=== PATIENT | female | born 1950 | race Caucasian/White ===

== ENCOUNTER 2023-03-17 08:31 | Outpatient (OUT) | payer MEDICARE, SELFPAY ==
[2023-03-17 09:19] LABS: Alanine Aminotransferase 28 U/L (14-59); Albumin Globulin Ratio 1.1; Albumin Level 3.6 g/dL (3.4-5.0); Alkaline Phosphatase 86 U/L (46-116); Anion Gap 13.1; Aspartate Amino Transferase 14 U/L (15-37); BUN Creatinine Ratio 18.7; Bilirubin Total 0.7 mg/dL (0.2-1.0); Calcium 9.1 mg/dL (8.5-10.1); Chloride 105 mmol/L (98-107); Cholesterol 204 mg/dL (<=200); Estimated GFR (African America >60 (>=60); Estimated GFR (Non-African Ame >60 (>=60); Globulin 3.3 g/dL; Glucose 110 mg/dL (74-106); HDL Cholesterol 41 mg/dL (40-60); Potassium 4.1 mmol/L (3.5-5.1); Sodium 142 mmol/L (136-145); Total Protein 6.9 g/dL (6.4-8.2); Triglycerides 179 mg/dL (<=150); VLDL CHOLESTEROL 35.8 mg/dL
== END 2023-03-17 08:32 | disposition home or self-care (01) ==
LOC: LAB 08:35
PROVIDERS: PCP Family Medicine; Visit Provider Family Medicine
DX: E78.2 Mixed hyperlipidemia (principal); N18.2 Chronic kidney disease, stage 2 (mild); Z13.1 Encounter for screening for diabetes mellitus
CPT/HCPCS: 36415; 80053; 80061

== ENCOUNTER 2024-01-05 10:13 | Outpatient (OUT) | payer MEDICARE, SELFPAY ==
--- NOTE | 2024-01-05 10:30 | XR_ITS ---
[address] [address] Patient Name: THEO QUEEN MRN: [id number] date: 1950 Sex: F Assigned Patient Location: [facility] Current Patient Location: [facility] Accession/Order Number: [id number] Exam Date: 01/05/2024 10:20 Report Date: 01/05/2024 12:21 At the request of: SHAKIRA ORONA Procedure: XR DEXA axial skeleton EXAMINATION: XR DEXA axial skeleton HISTORY: Osteopenia Lumbar Spine COMPARISON: DEXA bone densitometry 02/02/2009 TECHNIQUE: Dual-energy X-ray absorptiometry (DXA) was performed. FINDINGS: HIP ANALYSIS: Lowest bone mineral density is within the right femoral neck, 0.73 g/cm2. T-score (standard deviation relative to young adult mean): -1.8 . -6.7% change since prior study. XR/XR DEXA axial skeleton IMPRESSION: [employer] Classification: Osteopenia - Moderate Fracture Risk FRAX: Electronically authenticated by: EMILIE ROMERO Date: 01/05/2024 12:21
== END 2024-01-05 10:14 | disposition home or self-care (01) ==
LOC: RAD 10:13
PROVIDERS: PCP Family Medicine; Visit Provider Family Medicine
DX: M85.88 Other specified disorders of bone density and structure, other site (principal); M85.851 Other specified disorders of bone density and structure, right thigh; M85.852 Other specified disorders of bone density and structure, left thigh; N95.1 Menopausal and female climacteric states
CPT/HCPCS: 77080

== ENCOUNTER 2024-02-19 07:40 | Outpatient (OUT) | payer MEDICARE, SELFPAY ==
--- NOTE | 2024-02-19 07:43 | MR_ITS ---
[address] [address] Patient Name: THEO QUEEN MRN: [id number] date: 1950 Sex: F Assigned Patient Location: MRI Current Patient Location: Accession/Order Number: [id number] Exam Date: 02/19/2024 08:20 Report Date: 02/20/2024 04:34 At the request of: JERMAINE NUR Procedure: MR shoulder RT wo con EXAMINATION: MR shoulder RT wo con HISTORY: Right Shoulder Pain M25.511 ; right shoulder pain since injury one month ago COMPARISON: No relevant comparison available. TECHNIQUE: A variety of imaging planes and parameters were utilized for visualization of suspected pathology. Imaging was performed without or with contrast as indicated by examination type. FINDINGS: ROTATOR CUFF REGION CUFF TENDONS: Disruption of supraspinatus tendon at its humeral head insertion with approximately 1.5 cm proximal retraction. CUFF MUSCLES: Normal appearing muscles. DELTOID: No significant atrophy or tear. LONG BICEPS TENDON: No abnormal signal, attrition, or tear. LABRUM/BICEPS ANCHOR SUPERIOR: No visible labral tear or biceps anchor pathology. ANTERIOR/INFERIOR: No visible tear or attrition. POSTERIOR: No posterior labrum abnormality. CAPSULE No visible capsular laxity or thickening. 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 AC LIGAMENTS: Normal acromioclavicular ligament. CC LIGAMENTS: Normal coracoclavicular ligaments. ACROMION: Mild lateral downward sloping. SUBACROMIAL BURSA: Small amount of fluid. HYALINE CARTILAGE: Thinning of cartilage. No focal defect. OTHER BONES: Normal proximal humerus, glenoid, and coracoid. OTHER OBSERVATIONS: Negative. No other significant findings or glenohumeral effusion. MR/MR shoulder RT wo con IMPRESSION: 1. Disruption and proximal retraction of supraspinatus tendon. 2. Marked degenerative changes of acromioclavicular joints and mild lateral downward sloping of acromion process. Electronically authenticated by: EMILIE ROMERO Date: 02/20/2024 04:34
--- OUTSIDE RECORDS SUMMARY | 2024-02-19 07:43 | XMS_ITS | CCD ---
Author Organization [facility] Care Team Providers Care Automobile Mechanic Motor Name Role Phone PHYSICIAN, DEFAULT Admitting Unavailable PHYSICIAN, DEFAULT Attending Unavailable YEYO, DR ROSENBERG Attending Unavailable YEYO, DR ROSENBERG Consulting Unavailable YEYO, DR ROSENBERG Admitting Unavailable MD Shakira Orona Primary Care Provider MD Shakira Orona Referring Provider [phone] Self, Referral Attending Provider Unavailable Silvia Morris Unavailable SHAKIRA ORONA Attending Unavailable SHAKIRA ORONA Attending Unavailable SHAKIRA ORONA Attending Unavailable SHAKIRA ORONA Referring Unavailable HUSSEIN SCHUSTER Attending Unavailable SHAKIRA ORONA Referring Unavailable PAIGE VERA Attending Unavailable SHAKIRA ORONA Referring Unavailable SHAKIRA ORONA Referring Unavailable ANTONELLA CHADWICK Attending Unavailable ANTONELLA CHADWICK Attending Unavailable SHAKIRA ORONA Referring Unavailable CHELSY MAYNARD Attending Unavailable SHAKIRA ORONA Referring Unavailable Gwen Torres Attending Unavailable Gwen Torres Attending Unavailable Gwen Torres Attending Unavailable Allergies Allergy Classification Reported Allergen(s) Allergy Type Date of Onset Reaction(s) Facility (1 source) Penicillins (Antibiotic) Propensity to adverse reactions Unknown [facility] Other (1 source) FAVIOR Propensity to adverse reactions Unknown [facility] Other Medications Current Medications Medication Drug Class(es) Dates Sig (Normalized) Sig (Original) azithromycin 250 mg oral tablet (1 source) Macrolide Antimicrobial Start: 05-15-2023 Azithromycin 250 MG 2 tablet on the first day, then 1 tablet daily for 4 days Orally Once a day for 5 days Apr, Active levothyroxine sodium 0.1 mg oral tablet (1 source) l-Thyroxine take 1 tablet by mouth once daily in the morning Levothyroxine Sodium 100 MCG 1 tablet on an empty stomach in the morning Orally Once a day for 30 day(s) Active methylPREDNISolone 4 mg oral tablet (1 source) Corticosteroid Start: 05-15-2023 Medrol 4 MG as directed Orally As Directed for 6 days Apr, Active Vitamin D3 (1 source) Vitamin D3 Activ e Completed/Discontinued Medications Medication Drug Class(es) Dates Sig (Normalized) Sig (Original) dexlansoprazole 30 mg delayed release oral capsule (1 source) Proton Pump Inhibitor Start: 10-27-2013 take 1 capsule by mouth every twenty-four hours Dexilant 30 MG 1 capsule Orally Once a day for 30 day(s) Oct, Not-Taking dicyclomine hydrochloride 20 mg oral tablet (1 source) Anticholinergic Start: 05-02-2015 take 1 tablet by mouth every twelve hours Dicyclomine HCl 20 mg 1 tablet Orally bid for 30 day(s) Apr, Not-Taking lansoprazole 15 mg delayed release oral capsule (1 source) Proton Pump Inhibitor Start: 11-01-2013 take 1 capsule by mouth every twenty-four hours Lansoprazole 15 MG 1 capsule before a meal Orally Once a day for 30 day(s) Oct, Not-Taking pantoprazole (1 source) Proton Pump Inhibitor Pantoprazole Sodium Not-Taking Problems Active Problems Problem Classification Problem Date Documented Da te Episodic/Chronic Abdominal pain (2 sources) Abdominal pain; Translations: [Generalized abdominal pain] Episodic Chronic obstructive pulmonary disease and bronchiectasis (1 source) Bronchitis, not specified as acute or chronic Episodic Esophageal disorders (2 sources) Esophagitis; Translations: [Esophagitis, unspecified] Episodic Gastritis and duodenitis (1 source) Gastritis; Translations: [Gastritis, unspecified, without bleeding] Episodic Past or Other Problems Problem Classification Problem Date Documented Da te Episodic/Chronic Unclassified (1 source) Contact with and (suspected) exposure to covid-19 Z20.822 Results Test Name Value Interpretation Reference Range Facility Ambulatory Visit Summaryon 0 01-28-2024 Ambulatory Visit Summary Ambulatory Visit Summary ANA ROSA QUEEN :1950 Visit Date:01/28/2024 Ambulatory Visit Instructions Your Diagnosis Non-smoker BMI 30.0-30.9,adult Hypertension Your Care Team Attending Physician - Gwen Conklin Primary Care Physician - Gwen Conklin This Is Your Medications List aspirin (aspirin 81 mg Chew Tab) calcium citrate (calcium citrate Tab) levothyroxine (levothyroxine 88 mcg (0.088 mg) Tab) lysine (lysine 500 mg oral tablet) Discharge Vitals Temperature (Temporal Artery) 36.7 ?C Heart Rate (Peripheral) 62 Respiratory Rate 18 Blood Pressure 128/84 Height 158 cm Height 62 in Weight 75.3 kg Weight 165.66 lb BMI 30.16 What to do next Scheduled Follow-Up Appointments 2023 10:00 AM EDT With: Gwen Conklin Where: [facility] Ambulatory Visit Summary Ambulatory Visit Summary ANA ROSA QUEEN :1950 Visit Date:01/28/2024 Ambulatory Visit Instructions Your Diagnosis Non-smoker BMI 30.0-30.9,adult Hypertension Your Care Team Attending Physician - Gwen Conklin Primary Care Physician - Gwen Conklin This Is Your Medications List aspirin (aspirin 81 mg Chew Tab) calcium citrate (calcium citrate Tab) levothyroxine (levothyroxine 88 mcg (0.088 mg) Tab) lysine (lysine 500 mg oral tablet) Discharge Vitals Temperature (Temporal Artery) 36.7 ?C Heart Rate (Peripheral) 62 Respiratory Rate 18 Blood Pressure 128/84 Height 158 cm Height 62 in Weight 75.3 kg Weight 165.66 lb BMI 30.16 Medications What How Much When Instructions Unchanged aspirin (aspirin 81 mg Chew Tab) 1 Tablets By Mouth Every day Unchanged calcium citrate (calcium citrate Tab) 250 Milligram By Mouth 2 times a day Unchanged levothyroxine (levothyroxine 88 mcg (0.088 mg) Tab) 1 Tablets By Mouth Every day Unchanged lysine (lysine 500 mg oral tablet) 1 Tablets By Mouth Every day Allergies No active allergies Problems Ongoing - Any problem that you are currently receiving treatment for. Hypertension Patient Survey You may receive a survey via text or e-mail asking about your office visit. Please share your experience with us by completing your survey. We appreciate your feedback and thank you for choosing us for your care. Normal Haresh [facility] Family Medicine Office/Clini c Noteon 01-28-2024 Family Medicine Office/Clinic Note Family Medicine Office/Clinic Note HPI Staff Ana Rosa is a 74 year old female presenting to establish care Establish Care: History: Any previous diagnosis: Skin cancer, Hypertention History of seeing any specialist: Roller Bearing Inspector ( Dr. Ferreira) When was your last doctors visit: January 14, 2024 Last provider: Dr. Orona Any recent labs: December 03 Health Maintenance UTD: Colonoscopy: 9 years ago Mammogram: November 29, 2021 Pelvic/Pap: last time was 8 years ago. Acute: Current issues/complaints: right shoulder Bone density test- 01/05/24 Is in PT [facility] for right shoulder has appt today, 2x weekly just started this Thursday History of Present Illness pt presents today to establish with new provider Review of Systems PHQ Score Initial Depression Screen Score: 0 SCORE Physical Exam Vitals & Measurements T: 36.7 ?C(Temporal Artery) HR: 62(Peripheral) RR: 18 BP: 128/84 SpO2: 94% HT: 62 in HT: 158 cm WT: 75.3 kg WT: 165.66 lb BMI: 30.16 General: alert, no acute distress ENMT: oral mucosa moist, no pharyngeal erythema or exudate Cardiovascular: regular rate and rhythm, normal peripheral perfusion Respiratory: Lungs CTA, respirations non labored Extremities: no deformity, no trauma Neurological: oriented x 4, LOC appropriate for age, CN II-XII intact, motor strength equal & normal bilaterally, speech normal limited ROM of right shoulder due to pain Assessment/Plan 1. Right shoulder pain (M25.511: Pain in right shoulder) pt started physical therapy for shoulder pain last week. she is taking anti inflammatory. declines steroids at this time. pt will continue PT for 6 weeks and return to office. will consider ordering MRI if pain is not improved. pt is having trouble with daily tasks and sleeping due to the pain. 2. Hypothyroid (E03.9: Hypothyroidism, unspecified) refills sent. TSH WNL Ordered: ascorbic acid, 500 mg = 1 tab(s), Oral, Daily, # 90 tab(s), Refills(s) 3, Pharmacy: [facility], 158, cm, 01/28/24 9:24:00 EDT, Height/Length Dosing, 75.3, kg, 01/28/24 9:24:00 EDT, Weight Dosing ergocalciferol, 50,000 International_Unit = 1 cap(s), Oral, qWeek, # 12 cap(s), Refills(s) 3, Pharmacy: [facility], 158, cm, 01/28/24 9:24:00 EDT, Height/Length Dosing, 75.3, kg, 01/28/24 9:24:00 EDT, Weight Dosing 3. Osteoarthritis (M19.90: Unspecified osteoarthritis, unspecified site) meds sent to pharmacy Ordered: ascorbic acid, 500 mg = 1 tab(s), Oral, Daily, # 90 tab(s), Refills(s) 3, Pharmacy: [facility], 158, cm, 01/28/24 9:24:00 EDT, Height/Length Dosing, 75.3, kg, 01/28/24 9:24:00 EDT, Weight Dosing ergocalciferol, 50,000 International_Unit = 1 cap(s), Oral, qWeek, # 12 cap(s), Refills(s) 3, Pharmacy: [facility], 158, cm, 01/28/24 9:24:00 EDT, Height/Length Dosing, 75.3, kg, 01/28/24 9:24:00 EDT, Weight Dosing 4. Hypertension (I10: Essential (primary) hypertension) BP at goal Ordered: ascorbic acid, 500 mg = 1 tab(s), Oral, Daily, # 90 tab(s), Refills(s) 3, Pharmacy: [facility], 158, cm, 01/28/24 9:24:00 EDT, Height/Length Dosing, 75.3, kg, 01/28/24 9:24:00 EDT, Weight Dosing ergocalciferol, 50,000 International_Unit = 1 cap(s), Oral, qWeek, # 12 cap(s), Refills(s) 3, Pharmacy: [facility], 158, cm, 01/28/24 9:24:00 EDT, Height/Length Dosing, 75.3, kg, 01/28/24 9:24:00 EDT, Weight Dosing Body Mass Index (BMI) documented 3008F Current tobacco non-user 1036F Depression Screening Negative 3352F Influenza immunization status assessed 1030F Medication list documented in medical record 1159F Patient screen for fall risk: no falls in last year or 1 fall with no injury in last year 1101F Review of all meds by a prescribing practitioner or clinical pharmacist documented in EHR 1160F 5. Non-smoker (Z78.9: Other specified health status) continue not smoking Ordered: ascorbic acid, 500 mg = 1 tab(s), Oral, Daily, # 90 tab(s), Refills(s) 3, Pharmacy: [facility], 158, cm, 01/28/24 9:24:00 EDT, Height/Length Dosing, 75.3, kg, 01/28/24 9:24:00 EDT, Weight Dosing ergocalciferol, 50,000 International_Unit = 1 cap(s), Oral, qWeek, # 12 cap(s), Refills(s) 3, Pharmacy: [facility], 158, cm, 01/28/24 9:24:00 EDT, Height/Length Dosing, 75.3, kg, 01/28/24 9:24:00 EDT, Weight Dosing Body Mass Index (BMI) documented 3008F Current tobacco non-user 1036F Depression Screening Negative 3352F Influenza immunization status assessed 1030F Medication list documented in medical record 1159F Patient screen for fall risk: no falls in last year or 1 fall with no injury in last year 1101F Review of all meds by a prescribing practitioner or clinical pharmacist documented in EHR 1160F 6. BMI 30.0-30.9,adult (Z68.30: Body mass index [BMI] 30.0-30.9, adult) BMI education Ordered: ascorbic acid, 500 mg = 1 tab(s), Oral, Daily, # 90 tab(s), Refills(s) 3, Pharmacy: [facility], 158, cm, 01/28/24 9:24:00 EDT, Height/Length Dosing, 75.3, kg, 01/28/24 9:24:00 E (more content not included)... Normal [facility] Comment on above: Result Comment: Elec tronically Signed By: Gwen Conklin\.br\Date and Time Signed: 01/28/24 10:50 EDT XR SHOULDER 2+ VIEWS RIGHTon 01-14-2024 XR SHOULDER 2+ VIEWS RIGHT FINDINGS: A bulbous subacromial process is present. Mild osteophyte formation involves the AC joint. No fracture or dislocation is seen. Punctate calcification humeral head consistent with calcific rotator cuff tendinitis. Upper chest is clear. IMPRESSION: 1. Mild arthritis, no AC separation or fracture. 2. Acromial morphology possible impingement. TRANSCRIBED BY: ELECTRONICALLY SIGNED BY: Chico Dias MD Normal Not Available COVID/FLU RT-PCRon 3 SARS-CoV-2 (COVID-19) RNA MAURICE+probe Ql (Unsp spec) Negative [employer] Other COVID/FLU RT-PCR Negative [facility] [employer] Other MM screening mammo BI w/CADo n 11-29-2021 MM screening mammo BI w/CAD [facility] [place] [address] Mammography Report Signed Patient: Ana Rosa Queen MR#: [id number] 62 : 1950 Acct:[id number] Age/Sex: 71 / F ADM Date: 11/29/21 Loc: [place] Room: Type: [facility] Attending Dr: Referral Self Ordering Provider: SELF,REFERRAL Date of Service: 11/29/21 MM/MM screening mammo BI w/CAD: SCREENING Copies to: Shakira Orona MD SELF,REFERRAL CLINICAL DATA: Screening for malignancy. BILATERAL SCREENING MAMMOGRAMS - FULL FIELD DIGITAL WITH TOMOSYNTHESIS AND CAD Tomosynthesis craniocaudal and mediolateral oblique views of both breasts were obtained using low- dose digital technique. Comparison is made to prior studies from April 07, 2014 and October 18, 2020. This examination was reviewed with the aid of CAD. The breast parenchyma has been largely replaced by fat. Benign calcifications and nodular asymmetries are again seen. There are no developing masses, typically malignant calcifications or architectural distortion. There has been no significant interval change. MM/MM screening mammo BI w/CAD IMPRESSION: NO MAMMOGRAPHIC EVIDENCE OF MALIGNANCY. ROUTINE FOLLOW-UP IS RECOMMENDED IN ONE YEAR. RESULT CODE: 2 Benign Findings(s) DENSITY CODE: 1 (<25% glandular) FOLLOW UP: 1YR The false-negative rate of mammography is approximately 10-percent. Management of a palpable abnormality must be based on clinical grounds. Patient was entered into a reminder system with a target due date for the next mammogram. Impression dictated by: Elizabeth Dill M.D.11/29/2021 2:44 PM Dictation Location: [facility] Transcribed By: [facility] 11/29/21 1444 Dictated By: Elizabeth Dill MD 11/29/21 1434 Signed By: 11/29/21 1444 Normal [facility] Comprehensive Metabolic Pane felicia 11-21-2021 Albumin [Mass/Vol] 4.3 g/dL Normal 3.6-5.1 [facility] [employer] Comment on above: Performed By: #### L IPD, CMP #### [facility] [address] [place], [place] [id number] Albumin/Globulin [Mass ratio] 2.0 {ratio} Normal 1.0-2.5 [facility] Specialist Comment on above: Performed By: #### L IPD, CMP #### [facility] [address], [place] [id number] ALP [Catalytic activity/Vol] 95 U/L Normal 35-119 [facility] Specialist Comment on above: Performed By: #### L IPD, CMP #### [facility] [address], [place] [id number] ALT [Catalytic activity/Vol] 21 U/L Normal 6-33 [facility] Specialist Comment on above: Result Comment: 06/19 Female reference range changed. Performed By: #### L IPD, CMP #### [facility] [address], [place] [id number] Anion gap [Moles/Vol] 12 mmol/L Normal 12-20 [facility] Specialist Comment on above: Result Comment: Effe ctive 07/25/2019 reference range changed. Performed By: #### L IPD, CMP #### [facility] [address], [place] [id number] AST [Catalytic activity/Vol] 21 U/L Normal 9-34 [facility] Comment on above: Performed By: #### L IPD, CMP #### [facility] [address] [place], [place] [id number] Bilirubin [Mass/Vol] 0.67 mg/dL Normal 0.30-1.20 [facility] Comment on above: Performed By: #### L IPD, CMP #### [facility] [address] [place], [place] [id number] BUN/CREA 18 Ratio Normal 6-22 [facility] Comment on above: Performed By: #### L IPD, CMP #### [facility] [address] [place], [place] [id number] Calcium [Mass/Vol] 9.6 mg/dL Normal 8.6-10.2 [facility] Comment on above: Performed By: #### L IPD, CMP #### [facility] [address] [place], [place] [id number] Chloride [Moles/Vol] 107 mmol/L Normal 98-107 [facility] Comment on above: Performed By: #### L IPD, CMP #### [facility] [address] [place], [place] [id number] CO2 [Moles/Vol] 26 mmol/L Normal 20-31 [facility] Comment on above: Performed By: #### L IPD, CMP #### [facility] [address] [place], [place] [id number] Creatinine [Mass/Vol] 0.9 mg/dL Normal 0.6-1.4 [facility] Comment on above: Performed By: #### L IPD, CMP #### [facility] [address] [place], [place] [id number] eGFRAA 78 mL/min/1.73m2 Normal >60 [facility] Comment on above: Performed By: #### L IPD, CMP #### [facility] [address] [place], [place] [id number] eGFRNAA 65 mL/min/1.73m2 Normal >60 [facility] Comment on above: Performed By: #### L IPD, CMP #### [facility] [address] [place], [place] [id number] Globulin (S) [Mass/Vol] 2.1 g/dL Normal 1.9-3.7 [facility] Director Of [employer] Comment on above: Performed By: #### L IPD, CMP #### [facility] [address], [place] [id number] Glucose [Mass/Vol] 112 mg/dL High 65-99 [facility] [employer] Comment on above: Result Comment: For FASTING Glucose --- ADA reference ranges: Normal 65-99 mg/dl Prediabetes 100-125 Diabetes >/= 126 Performed By: #### L IPD, CMP #### [facility] [address] [place], [place] [id number] Potassium [Moles/Vol] 4.6 mmol/L Normal 3.5-5.5 [facility] Director Of [employer] Comment on above: Performed By: #### L IPD, CMP #### [facility] [address] [place], [place] [id number] Protein [Mass/Vol] 6.4 g/dL Normal 6.1-8.1 [facility] Director [employer] Comment on above: Performed By: #### L IPD, CMP #### [facility] [address] [place], [place] [id number] Sodium [Moles/Vol] 141 mmol/L Normal 135-146 [facility] [employer] Comment on above: Performed By: #### L IPD, CMP #### [facility] [address] [place], [place] [id number] Urea nitrogen [Mass/Vol] 16 mg/dL Normal 7-25 [facility] Director [employer] Comment on above: Performed By: #### L IPD, CMP #### [facility] [address] [place], [place] [id number] Lipid Panelon 11-21-2021 Cholesterol [Mass/Vol] 236 mg/dL High 125-200 [facility] [employer] Comment on above: Result Comment: Low risk < 200mg/dL Borderline risk 201-239 mg/dl High risk > or equal to 240 Performed By: #### L IPD, CMP #### [facility] [address], [place] [id number] Cholesterol in HDL [Mass/Vol] 40 mg/dL Low >40 [facility] [employer] Comment on above: Result Comment: High Cardiovascular Risk HDL <40 mg/dL Low Cardiovascular Risk HDL > or equal to 60 mg/dl Performed By: #### L IPD, CMP #### [facility] [address] [place], [place] [id number] Cholesterol in LDL [Mass/Vol] 157 mg/dL Normal [facility] Specialist Comment on above: Result Comment: LDL ATP III CLASSIFICATION LDL less than 100 mg/dl Optimal LDL 100-129 mg/dl Near or above optimal LDL 130-159 Borderline high LDL 160-189 High LDL greater than 189 mg/dl Very High Performed By: #### L IPD, CMP #### [facility] [address] [place], [place] [id number] Cholesterol in VLDL [Mass/Vol] 39 mg/dL Normal [facility] Specialist Comment on above: Performed By: #### L IPD, CMP #### [facility] [address] [place], [place] [id number] Cholesterol.total/Ch olesterol in HDL [Mass ratio] 6 {ratio} Normal [facility] Specialist Comment on above: Performed By: #### L IPD, CMP #### [facility] [address] [place], [place] [id number] Triglyceride [Mass/Vol] 194 mg/dL High 30-150 [facility] [employer] Comment on above: Result Comment: TRIG ATPIII CLASSIFICATIONS TRIG less than 150 mg/dl Normal TRIG 150-199 mg/dl Borderline High TRIG 200-500 mg/dl High TRIG greather than 500 mg/dl Very High Performed By: #### L IPD, CMP #### [facility] [address] [place], [place] [id number] CBC AUTO DIFFon 04-15-2021 BASO # 0.0 103/ul Normal 0.0-0.1 [facility] Comment on above: Performed By: #### C BC #### [facility] [address] [place] [address] Dr. Wendy Kingsley Basophils/100 WBC (Bld) 0.6 % Normal 0.2-2.0 [facility] Comment on above: Performed By: #### C BC #### [facility] [address] [address] [address] Wendy Kingsley EO # 0.1 103/ul Normal 0.0-0.7 [facility] Comment on above: Performed By: #### C BC #### [facility] [address] [place] [address] Dr. Wendy Kingsley Eosinophils/100 WBC (Bld) 1.6 % Normal 0.9-7.0 [facility] Comment on above: Performed By: #### C BC #### [facility] [address] [place] [address] Dr. Wendy Kingsley Erythrocyte distribution width (RBC) [Ratio] 13.0 % Normal 11.0-15.0 [facility] Comment on above: Performed By: #### C BC #### [facility] [address] [place] [address] Dr. Wendy Kingsley Hematocrit (Bld) [Volume fraction] 43.0 % Normal 36.0-48.0 [facility] Comment on above: Performed By: #### C BC #### [facility] [address] [place] [address] Dr. Wendy Kingsley Hemoglobin (Bld) [Mass/Vol] 13.9 g/dL Normal 12.0-16.0 [facility] Comment on above: Performed By: #### C BC #### [facility] [address] [place] [address] Dr. Wendy Kingsley IG # 0.02 10e3/ul Normal 0.00-0.03 [facility] Comment on above: Performed By: #### C BC #### [facility] [address] [place] [address] Dr. Wendy Kingsley IG % 0.4 % Normal 0.0-0.5 [facility] Comment on above: Performed By: #### C BC #### [facility] [address] [place] [address] Dr. Wendy Kingsley LYMPH # 1.8 103/ul Normal 1.2-3.8 [facility] Comment on above: Performed By: #### C BC #### [facility] [address] [place] [address] Dr. Wendy Kingsley Lymphocytes/100 WBC (Bld) 34.2 % Normal 20.5-60.0 [facility] Comment on above: Performed By: #### C BC #### [facility] [address] [place] [address] Dr. Wendy Kingsley MANUAL DIFF REQ NO Normal [facility] Comment on above: Performed By: #### C BC #### [facility] [address] [place] [address] Dr. Wendy Kingsley MCH (RBC) [Entitic mass] 29.8 pg Normal 26.7-34.0 [facility] Comment on above: Performed By: #### C BC #### [facility] [address] [place] [address] Dr. Wendy Kingsley MCHC (RBC) [Mass/Vol] 32.3 g/dL Normal 29.9-35.2 [facility] Comment on above: Performed By: #### C BC #### [facility] [address] [place] [address] Dr. Wendy Kingsley MCV (RBC) [Entitic vol] 92.1 fL Normal 81.0-99.0 [facility] Comment on above: Performed By: #### C BC #### [facility] [address] [place] [address] Dr. Wendy Kingsley MONO # 0.6 103/ul Normal 0.3-0.8 [facility] Comment on above: Performed By: #### C BC #### [facility] [address] [place] [address] Dr. Wendy Kingsley Monocytes/100 WBC (Bld) 11.7 % Normal 1.7-12.0 [facility] Comment on above: Performed By: #### C BC #### [facility] [address] [place] [address] Dr. Wendy Kingsley NEUT # 2.6 103/ul Normal 1.4-6.5 [facility] Comment on above: Performed By: #### C BC #### [facility] [address] [place] [address] Dr. Wendy Kingsley Neutrophils/100 WBC (Bld) 51.5 % Normal 43.0-75.0 [facility] Comment on above: Performed By: #### C BC #### [facility] [address] [address] [address] Wendy Kingsley Platelet mean volume (Bld) [Entitic vol] 12.4 fL Normal 9.5-13.5 [facility] Comment on above: Performed By: #### C BC #### [facility] [address] [address] [address] Wendy Kingsley PLT 144 103/ul Critically low 150-450 [facility] Comment on above: Performed By: #### C BC #### [facility] [address] [address] [address] Wendy Kingsley RBC 4.67 106/ul Normal 4.20-5.40 [facility] Comment on above: Performed By: #### C BC #### [facility] [address] [address] [address] Wendy Kingsley WBC 5.1 103/ul Normal 4.0-11.0 [facility] Comment on above: Performed By: #### C BC #### [facility] [address] [address] [address] Wendy Kingsley GLYCOHEMOGLOBIN A1Con 2020 ADA RECOMMENDATION ADA THERAPEUTIC TARGET 6.0 - 7.0 ACTION SUGGESTED > 7.0 Normal [facility] Comment on above: Performed By: #### A 1C #### [facility] [address] [address] [address] Wendy Kingsley Glucose [Mass/Vol] 108 mg/dL Normal [facility] Comment on above: Performed By: #### A 1C #### [facility] [address] [address] [address] Wendy Kingsley HbA1c (Bld) [Mass fraction] 5.4 % Normal <=6.0 [facility] Comment on above: Performed By: #### A 1C #### [facility] [address] [address] [address] Wendy Kingsley LIPID PROFILEon 04-15-2021 CHOL-HDL RATIO NORM SEE BELOW Normal [facility] Comment on above: Result Comment: 3.3 - 4.4 LOW RISK 4.4 - 7.1 AVERAGE RISK 7.1 - 11.0 MODERATE RISK >11.0 HIGH RISK Performed By: #### L IPID, BMP #### [facility] [address] [place] [address] Dr. Wendy Kingsley Cholesterol [Mass/Vol] 214 mg/dL Critically high <=200 [facility] Comment on above: Performed By: #### L IPID, BMP #### [facility] [address] [place] [address] Dr. Wendy Kingsley Cholesterol in HDL [Mass/Vol] 38 mg/dL Normal [facility] Comment on above: Performed By: #### L IPID, BMP #### [facility] [address] [place] [address] Dr. Wendy Kingsley Cholesterol in LDL [Mass/Vol] 138.8 mg/dL Normal [facility] Comment on above: Performed By: #### L IPID, BMP #### [facility] [address] [place] [address] Dr. Wendy Kingsley Cholesterol.total/Ch olesterol in HDL [Mass ratio] 5.6 {ratio} Normal [facility] Comment on above: Performed By: #### L IPID, BMP #### [facility] [address] [place] [address] Dr. Wendy Kingsley HDL NORMAL > or = 60 mg/dl - LOW CARDIOVASCULAR RISK <40 mg/dl - HIGH CARDIOVASCULAR RISK Normal [facility] Comment on above: Performed By: #### L IPID, BMP #### [facility] [address] [place] [address] Dr. Wendy Kingsley LDL CALC NORMAL SEE BELOW Normal [facility] Comment on above: Result Comment: <100 mg/dl OPTIMAL 100 - 129 mg/dl NEAR OR ABOVE OPTIMAL 130 - 159 mg/dl BORDERLINE HIGH 160 - 189 mg/dl HIGH >190 mg/dl VERY HIGH Performed By: #### L IPID, BMP #### [facility] [address] [place] [address] Dr. Wendy Kingsley Triglyceride [Mass/Vol] 186 mg/dL Critically high <=150 [facility] Comment on above: Performed By: #### L IPID, BMP #### [facility] [address] [place] [address] Dr. Wendy Kingsley VLDL CALC 37.2 mg/dL Normal [facility] Comment on above: Performed By: #### L IPID, BMP #### [facility] [address] [place] [address] Dr. Wendy Kingsley PROF CHEM 8 (BAS METB)on Anion gap [Moles/Vol] 11.2 mmol/L Normal [facility] Comment on above: Performed By: #### L IPID, BMP #### [facility] [address] [place] [address] Dr. Wendy Kingsley Calcium [Mass/Vol] 9.0 mg/dL Normal 8.4-10.2 [facility] Comment on above: Performed By: #### L IPID, BMP #### [facility] [address] [place] [address] Dr. Wendy Kingsley Chloride [Moles/Vol] 106 mmol/L Normal 98-107 [facility] Comment on above: Performed By: #### L IPID, BMP #### [facility] [address] [place] [address] Dr. Wendy Kingsley CO2 [Moles/Vol] 26.2 mmol/L Normal 22.0-30.0 [facility] Comment on above: Performed By: #### L IPID, BMP #### [facility] [address] [place] [address] Dr. Wendy Kingsley Creatinine [Mass/Vol] 0.95 mg/dL Normal 0.52-1.04 [facility] Comment on above: Performed By: #### L IPID, BMP #### [facility] [address] [place] [address] Dr. Wendy Kingsley EGFR-AF MALAWIAN >60 Normal >=60 [facility] Comment on above: Performed By: #### L IPID, BMP #### [facility] [address] [place] [address] Dr. Wendy Kingsley EGFR-NON AF MALAWIAN 58 mL/min/1.73m2 Critically low >=60 [facility] Comment on above: Performed By: #### L IPID, BMP #### [facility] [address] [address] [address] Wendy Kingsley Glucose [Mass/Vol] 96 mg/dL Normal 74-106 [facility] Comment on above: Performed By: #### L IPID, BMP #### [facility] [address] [place] [address] Dr. Wendy Kingsley Potassium [Moles/Vol] 4.4 mmol/L Normal 3.4-5.0 [facility] Comment on above: Performed By: #### L IPID, BMP #### [facility] [address] [place] [address] Dr. Wendy Kingsley Sodium [Moles/Vol] 139 mmol/L Normal 137-145 [facility] Comment on above: Performed By: #### L IPID, BMP #### [facility] [address] [place] [address] Dr. Wendy Kingsley Urea nitrogen [Mass/Vol] 17.0 mg/dL Normal 7.0-17.0 [facility] Comment on above: Performed By: #### L IPID, BMP #### [facility] [address] [place] [address] Dr. Wendy Kingsley Urea nitrogen/Creatinine [Mass ratio] 17.9 mg/mg Normal [facility] Comment on above: Performed By: #### L IPID, BMP #### [facility] [address] [place] [address] Dr. Wendy Kingsley [facility] 01-24-2019 [facility] Letter Text Normal [facility] Vital Signs Date Time Vital Sign Value Performing Clinician Facility 05-15-2023 10:15-0400 Body height 160.02 cm Sivlia Morris Other [facility] Other 05-15-2023 10:15-0400 Body mass index (BMI) [Ratio] 28.55 kg/m2 Silvia Morris Other [facility] Other 05-15-2023 10:15-0400 Body temperature 98.4 [degF] Silvia Morris Other [facility] Other 05-15-2023 10:15-0400 Body weight 73.12 kg Silvia Morris Other [facility] Other 05-15-2023 10:15-0400 Diastolic blood pressure 80 mm[Hg] Silvia Morris Other [facility] Other 05-15-2023 10:15-0400 Respiratory rate 18 /min Silvia Morris Other [facility] Other 05-15-2023 10:15-0400 SaO2% (BldA) [Mass fraction] 95 % Silvia Morris Other [facility] Other 05-15-2023 10:15-0400 Systolic blood pressure 110 mm[Hg] Silvia Morris Other [facility] Other Encounters Encounter Date Encounter Type Care Provider Facility Start: 03-10-2024 ambulatory Gwen L Brian Facility: [facility] Start: 02-18-2024 ambulatory Gwen L Brian Facility: [facility] Start: 02-08-2024 End: 02-09-2024 ambulatory CHELSY MAYNARD Not Available Start: 02-04-2024 End: 02-04-2024 ambulatory ANTONELLA CHADWICK Not Available Start: 02-02-2024 End: 02-02-2024 ambulatory SHAKIRA ORONA Not Available Start: 01-28-2024 End: 01-28-2024 ambulatory PAIGE VERA Not Available Start: 01-28-2024 End: 01-28-2024 ambulatory Gwen L Brian Facility:[facility] Start: 01-25-2024 End: 01-26-2024 ambulatory HUSSEIN SCHUSTER Not Available Start: 01-22-2024 ambulatory Gwen Torres Facility:[facility] Start: 01-14-2024 End: 01-14-2024 ambulatory SHAKIRA ORONA Not Available Start: 01-14-2024 End: 01-14-2024 ambulatory SHAKIRA ORONA Not Available Start: 12-31-2023 End: 12-31-2023 ambulatory SHAKIRA ORONA Not Available Start: 12-17-2023 End: 12-17-2023 ambulatory SHAKIRA ORONA Not Available Start: 05-15-2023 End: 05-15-2023 ambulatory Silvia Morris Other [facility] Other Start: 05-15-2023 Office outpatient ne w 20 minutes Silvia Morris [facility] Start: 11-29-2021 End: 11-29-2021 Patient encounter procedure MD Shakira Orona Work Phone: [facility] Start: 04-15-2021 End: 04-16-[address] SHAKIRA ORONA Facility: Start: 11-01-2018 End: 11-02-2018 Patient encounter procedure DEFAULT PHYSICIAN Facility:[facility] Procedures Date Procedure Procedure Detail Performing Clinician Start: 11-29-2021 Screening mammograph y of bilateral breasts MD Shakira Orona Work Phone: Payers Date Payer Category Payer Medicare [id number] 1961 Self-pay 1950 Unknown [id number] 1950 Unknown [id number] [id number] 1950 Unknown [id number] 2.840.1.992825.3.579.2.9 1950 Unknown [id number] 2.840.1.116102.3.579.2.9 1950 Unknown [id number] 2.840.1.252113.3.579.2.1259 1950 Unknown [id number] 2.16.840.1.588030.3.579.2.1259 1950 Unknown [id number] 2.16.840.1.396286.3.579.2.1259 1950 Unknown [id number] 2.16.840.1.052358.3.579.2.1259 1950 Unknown [id number] 2.16.840.1.870387.3.579.2.1259 1948 Unknown [id number] 2.16.840.1.118776.3.579.2.1259 1950 Unknown [id number] 2.16.840.1.580587.3.579.2.727 1950 Unknown [id number] 2.16.840.1.457856.3.579.2.727 1950 Unknown [id number] 2.16.840.1.182124.3.579.2.727 Medicare Medicare [id number] Medicare [id number] 2.1 [id number] Private Health Insurance [employer] [facility] 1 [id number] Unknown Unknown [id number] [id number] Unknown Barbara BC/BS [id number] Social History Date Type Detail Facility Tobacco smoking status WAIS Unknown if ever smoked [facility] Work Phone: Start: 1950 Sex Assigned At Female F [facility] Sex Assigned At Sex Assigned At Bir th [facility] [employer] Other Evaluation note 05-15-2023 Note Date & Type Note Facility 05-15-2023 Evaluation note Encounter Date Diagnosis Assessment Notes Apr, Contact with and (suspected) exposure to covid-19 (ICD-10 - Z20.822) Apr, Bronchitis (ICD-10 - J40) Acute bronchitis home care material was printed Drink plenty fluids, get plenty of rest. Fill and take the azithromycin as prescribed until gone if no improvement in your symptoms in the next day or so. Take the Medrol Dosepak as prescribed starting tomorrow. Take Delsym or Robitussin as needed for cough. Follow-up with your family physician if no improvement in 2 to 3 days. Patient reports she is leaving for [place] tomorrow and is concerned that she will be sick while she was gone. A Z-Steven was prescribed in case she needs it. Patient verbalizes understanding of this. [facility] Other Evaluation note Note Date & Type Note Facility Evaluation note No assessment information [facility] Work Phone: History general Narrative - Reported Note Date & Type Note Facility History general Narrative - Reported Type Medical History Gastritis and gastro duodenitis, unspecified, without mention of hemorrhage Medical History Abdominal pain Surgical History CHOLECYSTECTOMY Surgical History TUBAL LIGATION Hospitalization History No Hospitalization histo ry information [facility] Other Summary Purpose Family History No Family History Records FoundNo Family History Records FoundNo Family History Records FoundNo Family History Records FoundNo Family History Records FoundNo Family History Records FoundNo Family History Records Found Advance Directives No Advanced Directives Records Found Advance Directive Response Recorded Date/ Time Advance Directives No March 02, 2018 10:34am Chief Complaint and Reason for Visit Chief Complaint Screening Additional Source Comments INFORMATION SOURCE (unrecogn ized section and content) DATE CREATED AUTHOR 11/02/2018 [facility] DATE CREATED AUTHOR AUTHOR'S ORGANIZ ATION 01/27/2019 [facility] DATE CREATED AUTHOR AUTHOR'S ORGANIZ ATION 04/15/2021 [facility] DATE CREATED AUTHOR AUTHOR'S ORGANIZ ATION 11/22/2021 [facility] DATE CREATED AUTHOR AUTHOR'S ORGANIZ ATION 12/14/[address] [facility] DATE CREATED AUTHOR AUTHOR'S ORGANIZ ATION 02/11/2024 [facility] DATE CREATED AUTHOR AUTHOR'S ORGANIZ ATION 02/17/2024 [facility] Care Teams (unrecognized sec tion and content) Team Status: Inactive Member Role Status Dates Shakira Orona MD Primary Care Provider, Referring Provider Active Referral Self Attending Provider Active Team Status: Active Member Role Status Dates Shakira Orona MD Primary Care Provider Active Goals (unrecognized section and content) Goals may be documented in a n alternate sectionNo Information REASON FOR VISIT (unrecogniz ed section and content) COUGH, CONGESTION FOR RECORDS PERTAINING TO PATIENTS WHO ARE OR HAVE BEEN ENROLLED IN A CHEMICAL DEPENDENCY/SUBSTANCEABUSE PROGRAM, SOME INFORMATION MAY BE OMITTED. This clinical summary was aggregated from multiple sources. Caution should be exercised in using it in the provision of clinical care. This summary normalizes information from multiple sources, and as a consequence, information in this document may materially change the coding, format and clinical context of patient data. In addition, data may be omitted in some cases. CLINICAL DECISIONS SHOULD BE BASED ON THE PRIMARY CLINICAL RECORDS. [employer] [facility]. provides no warranty or guarantee of the accuracy or completeness of information in this document.
== END 2024-02-19 07:41 | disposition home or self-care (01) ==
LOC: MRI 07:40
PROVIDERS: PCP Nurse Practitioner; Visit Provider Family Medicine
DX: M25.511 Pain in right shoulder (principal); S46.811A Strain of other muscles, fascia and tendons at shoulder and upper arm level, right arm, initial encounter
CPT/HCPCS: 73221

== ENCOUNTER 2024-04-20 12:51 | Outpatient (OUT) | payer MEDICARE, SELFPAY ==
--- OUTSIDE RECORDS SUMMARY | 2024-04-20 13:06 | XMS_ITS | CCD ---
Author Organization [facility] Care Team Providers Care Public Information Coordinator Name Role Phone PHYSICIAN, DEFAULT Admitting Unavailable PHYSICIAN, DEFAULT Attending Unavailable YEYO, DR ROSENBERG Attending Unavailable YEYO, DR ROSENBERG Consulting Unavailable YEYO, DR ROSENBERG Admitting Unavailable MD Shakira Orona Primary Care Provider MD Shakira Orona Referring Provider [phone] Self, Referral Attending Provider Unavailable Silvia Morris Unavailable Gwen Shelton Attending Unavailable Gwen Shelton Attending Unavailable Gwen Shelton Attending Unavailable SHAKIRA ORONA Attending Unavailable SHAKIRA ORONA Attending Unavailable SHAKIAR ORONA Attending Unavailable HEMESHAKIRA ELY Referring Unavailable HUSSEIN SCHUSTER Attending Unavailable SHAKIRA ORONA Referring Unavailable PAIGE VERA Attending Unavailable HEMESHAKIRA ELY Referring Unavailable HEMESHAKIRA ELY Referring Unavailable ANTONELLA CHADWICK Attending Unavailable ANTONELLA CHADWICK Attending Unavailable HEMESHAKIRA ELY Referring Unavailable CHELSY MAYNARD Attending Unavailable HEMESHAKIRA ELY Referring Unavailable RENEE SOLIMAN Attending Unavailable RENETTA DE JESUS Referring Unavailable IZAIAH LEVINE Attending Unavailable GWEN SHELTON Referring Unavailable Allergies Allergy Classification Reported Allergen(s) Allergy Type Date of Onset Reaction(s) Facility (1 source) Penicillins (Antibiotic) Propensity to adverse reactions Unknown Anytime DD Other (1 source) FAVIOR Propensity to adverse reactions Unknown Anytime DD Other (1 source) Penicillin; Translations: [penicillin] Drug Allergy [facility] Repository (1 source) No Known Medication Allergies; Translations: [No Known Medication Allergies] Propensity to adverse reactions (disorder) [facility] Medications Current Medications Medication Drug Class(es) Dates [...] Reference Range Facility Ambulatory Visit Summaryon 0 03-10-2024 Ambulatory Visit Summary Ambulatory Visit Summary ANA ROSA TUCKER :1950 Visit Date:03/10/2024 Ambulatory Visit Instructions Your Diagnosis Supraspinatus tendon rupture BMI 30.0-30.9,adult Non-smoker Class 2 obesity due to excess calories in adult Your Care Team Attending Physician - Gwen Conklin Primary Care Physician - Gwen Conklin This Is Your Medications List aspirin (aspirin 81 mg Chew Tab) calcium carbonate (calcium (as carbonate) 600 mg oral tablet) ergocalciferol (Vitamin D 50,000 intl units (1.25 mg) oral capsule) levothyroxine (levothyroxine 88 mcg (0.088 mg) Tab) lysine (lysine 500 mg oral tablet) Procedures Performed Cholecystectomy, TL - Tubal ligation, Tonsillectomy. Discharge Vitals Temperature (Oral) 37.1 ?C Heart Rate (Peripheral) 75 Respiratory Rate 16 Blood Pressure 138/84 Height 157 cm Height 62 in Weight 74.1 kg Weight 163.02 lb BMI 30.06 Medications What How Much When Why Instructions Unchanged aspirin (aspirin 81 mg Chew Tab) 1 Tablets By Mouth Every day Unchanged calcium carbonate (calcium (as carbonate) 600 mg oral tablet) 1 Tablets By Mouth 2 times a day Unchanged ergocalciferol (Vitamin D 50,000 intl units (1.25 mg) oral capsule) 1 Capsules By Mouth Every week Hypothyroid Osteoarthritis Hypertension Non-smoker BMI 30.0-30.9,adult Unchanged levothyroxine (levothyroxine 88 mcg (0.088 mg) Tab) 1 Tablets By Mouth Every day Unchanged lysine (lysine 500 mg oral tablet) 1 Tablets By Mouth Every day Allergies penicillin (Swelling) Problems Ongoing - Any problem that you are currently receiving treatment for. Benign hypertension with chronic kidney disease, stage II Chronic fatigue syndrome Class 2 obesity due to excess calories in adult Hypertension Hypothyroid Nonalcoholic fatty liver disease without nonalcoholic steatohepatitis (SYKES) Osteoarthritis Right shoulder pain Rotator cuff syndrome of right shoulder Stage 2 chronic kidney disease Supraspinatus tendon rupture Supraventricular tachycardia Vitamin D deficiency Patient Survey You may receive a survey via text or e-mail asking about your office visit. Please share your experience with us by completing your survey. We appreciate your feedback and thank you for choosing us for your care. Education Materials Deltoid Disruption A deltoid disruption is a shoulder injury. The deltoid is a muscle in the upper arm that is responsible for most of the movement and rotation of the shoulder. A deltoid disruption occurs when the deltoid muscle pulls away from the bone that is beneath it. The muscle may pull away from the bone completely or partially. This may affect your ability to move your shoulder and arm. What are the causes? This condition may be caused by: ? Direct impact on the shoulder or injury to the shoulder. ? Injury or overuse from throwing hard. This may occur when participating in sports. Deltoid disruption could also occur as a complication after shoulder surgery. What increases the risk? You are more likely to develop this condition if you: ? Participate in contact sports. ? Participate in sports that involve throwing hard and repeatedly, such as pitching in baseball. ? Have had a previous injury to the deltoid muscle. ? Do not have good physical conditioning, including strength and flexibility. ? Use anabolic steroids. What are the signs or symptoms? Symptoms of this condition include: ? Losing strength in your shoulder and arm. ? Not being able to move or rotate your shoulder and arm like you normally would. ? Pain when moving your shoulder. This may be a ripping or tearing sensation. ? Redness, swelling, or bruising in your shoulder. ? Your shoulder feeling warm to the touch. ? Your shoulder looking curved in (concave) or not feeling as firm as before. How is this diagnosed? This condition may be diagnosed based on your medical history and a physical exam. You may also have imaging tests such as an MRI or an X-ray to check for a fracture, dislocation, or rotator cuff injury in your shoulder. How is this treated? Treatment for this condition depends on the severity of the injury. Treatment may include: ? Rest, ice, and gradual stretching and strengthening exercises. ? A sling to hold the shoulder in place (immobilization) while it heals. ? Pain medicine. ? Physical therapy. ? Surgery. You may need surgery if you have a severe injury. Follow these instructions at home: If you have a sling: ? Wear it as told by your health care provider. Remove it only as told by your health care provider. ? Loosen the sling if your fingers tingle, become numb, or turn cold and blue. ? Keep the sling clean. ? If the sling is not waterproof: ? Do not let it get wet. ? Cover it with a watertight covering when you take a bath or shower. ? Ask y (more content not included)... Normal [facility] Family Medicine Office/Clini c Noteon 03-10-2024 Family Medicine Office/Clinic Note Family Medicine Office/Clinic Note Chief Complaint Shoulder Pain HPI Staff 3wk f/u to discuss MRI results and possible referral to Ortho. (The one in the chart has been cancelled, will need to be resent). MRI 02/19/24 Still having Rt Shoulder Pain. Pain is tolerable when not moving. When she does have to raise arm it is a 10/10. Stopped anti inflammatory med 10 days ago. Ran out. Knew that she would be here today to see Gwen. History of Present Illness pt here today to discuss MRI results. will need referral to ortho Review of Systems PHQ Score Initial Depression Screen Score: 0 SCORE Physical Exam Vitals & Measurements T: 37.1 ?C(Oral) HR: 75(Peripheral) RR: 16 BP: 138/84 SpO2: 96% HT: 62 in HT: 157 cm WT: 74.1 kg WT: 163.02 lb BMI: 30.06 General: alert, no acute distress ENMT: oral mucosa moist, no pharyngeal erythema or exudate Cardiovascular: regular rate and rhythm, normal peripheral perfusion Respiratory: Lungs CTA, respirations non labored Extremities: no deformity, no trauma Neurological: oriented x 4, LOC appropriate for age, CN II-XII intact, motor strength equal & normal bilaterally, speech normal Assessment/Plan 1. Supraspinatus tendon rupture (S46.019A: Strain of muscle(s) and tendon(s) of the rotator cuff of unspecified shoulder, initial encounter) reviewed MRI results. will send referral to [facility] access orthopedics. pt is c/o 10/10 pain when she tries to raise her arm in any direction. will order meloxicam to replace nabutome and will also order norco for when pain is severe and she is unable to sleep. patient is taking a vacation soon and fears with the extra moving and traveling it is going to flare it up. RTC as needed Ordered: Body Mass Index (BMI) documented 3008F Current tobacco non-user 1036F Depression Screening Negative 3352F Discharge medications reconciled with current medications in outpatient record 1111F Medication list documented in medical record 1159F Patient screen for fall risk: no falls in last year or 1 fall with no injury in last year 1101F Review of all meds by a prescribing practitioner or clinical pharmacist documented in EHR 1160F 2. BMI 30.0-30.9,adult (Z68.30: Body mass index [BMI] 30.0-30.9, adult) BMI education given 3. Class 2 obesity due to excess calories in adult (E66.09: Other obesity due to excess calories) see above 4. Non-smoker (Z78.9: Other specified health status) continue not smoking Follow-up No qualifying data available Patient Education Deltoid Disruption Problem List/Past Medical History Ongoing Benign hypertension with chronic kidney disease, stage II Chronic fatigue syndrome Class 2 obesity due to excess calories in adult Hypertension Hypothyroid Nonalcoholic fatty liver disease without nonalcoholic steatohepatitis (SYKES) Osteoarthritis Right shoulder pain Rotator cuff syndrome of right shoulder Stage 2 chronic kidney disease Supraspinatus tendon rupture Supraventricular tachycardia Vitamin D deficiency Historical No qualifying data Procedure/Surgical History Cholecystectomy, TL - Tubal ligation, Tonsillectomy. Medications aspirin 81 mg Chew Tab, 81 mg= 1 tab(s), Oral, Daily calcium (as carbonate) 600 mg oral tablet, 600 mg= 1 tab(s), Oral, BID, 1 refills levothyroxine 88 mcg (0.088 mg) Tab, 88 mcg= 1 tab(s), Oral, Daily, 3 refills lysine 500 mg oral tablet, 500 mg= 1 tab(s), Oral, Daily Vitamin D 50,000 intl units (1.25 mg) oral capsule, 01147 International_Unit= 1 cap(s), Oral, qWeek, 3 refills Allergies penicillin (Swelling) Social History Tobacco Never (less than 100 in lifetime) Tobacco Use:. Never Smokeless Tobacco Use:. Cigarettes, Household tobacco concerns: No. Yes, 03/10/2024 Family History Primary malignant neoplasm of lung: Father. Prostate cancer: Father. Immunizations Vaccine Date Status Comments SARS-CoV-2 (COVID-19) mRNAMUL.ORD![id number] 05/29/2022 Recorded 2024-02-17: TPV70 SARS-CoV-2 (COVID-19) mRNA BNT-162b2 vax 06/11/2021 Recorded 2024-02-17: TPV70 SARS-CoV-2 (COVID-19) Ad26 vaccine 09/22/2020 Recorded hepatitis A-hepatitis B vaccine 04/18/2008 Recorded hepatitis A-hepatitis B vaccine 11/18/2007 Recorded typhoid vaccine, inactivated 10/14/2007 Recorded diphtheria/pertussis , acel/tetanus adult 10/14/2007 Recorded poliovirus vaccine, inactivated 10/14/2007 Recorded hepatitis A-hepatitis B vaccine 10/14/2007 Recorded Normal [facility] Comment on above: Result Comment: Elec tronically Signed By: Brian CIFUENTES, Gwen Spivey\.br\Date and Time Signed: 03/10/24 10:59 EDT Family Medicine Office/Clini c Noteon 02-18-2024 Family Medicine Office/Clinic Note Family Medicine Office/Clinic Note HPI Staff Ana Rosa is a 74 year old female presenting with Onset: started January 13 Location: right shoulder Duration: Characteristics:_lif ts over head it is a stabbing pain, or lifting Aggravated by: using it for anything Relieved by: ice, heat Voltarine, does work for a little bit Timing:_a little bit Associated Symptoms:_ none Doing MRI tomorrow @ [facility] Did 4 sessions of PT and made pain worse. Last one was done was February 07 Xray done January 24 @ [place] showed calcium and arthritis She can not sleep with this pain History of Present Illness pt presents today for right shoulder pain, tried physical therapy but was too painful for her. Review of Systems PHQ Score Initial Depression Screen Score: 0 SCORE Physical Exam Vitals & Measurements T: 36.3 ?C(Temporal Artery) HR: 64(Peripheral) RR: 18 BP: 116/78 SpO2: 96% HT: 62 in HT: 158.0 cm WT: 74.9 kg WT: 164.78 lb BMI: 30 General: alert, no acute distress ENMT: oral mucosa moist, no pharyngeal erythema or exudate Cardiovascular: regular rate and rhythm, normal peripheral perfusion Respiratory: Lungs CTA, respirations non labored Extremities: no deformity, no trauma Neurological: oriented x 4, LOC appropriate for age, CN II-XII intact, motor strength equal & normal bilaterally, speech normal Assessment/Plan 1. Right shoulder pain (M25.511: Pain in right shoulder) pt was prescribed anti inflammatory at last visit. has been going to physical therapy. but was told by PT that they wanted her to have MRI beforet they would continue. pt declines any medication at this time for the pain. pt is not sleeping due to the pain. she really doesn't want surgery. informed her we will keep an eye out for the results from [facility]. she has follow up scheduled on . may consider pain management or referral to ortho depending on results. 2. Rotator cuff syndrome of right shoulder (M75.101: Unspecified rotator cuff tear or rupture of right shoulder, not specified as traumatic) pt having difficulty with activities of daily living and sleeping due to the severe shoulder pain. is scheduled for MRI tomorrow at 8am 3. Non-smoker (Z78.9: Other specified health status) continue not smoking Ordered: ascorbic acid, 500 mg = 1 tab(s), Oral, Daily, # 90 tab(s), Refills(s) 3, Pharmacy: [facility], 158, cm, 01/28/24 9:24:00 EDT, Height/Length Dosing, 75.3, kg, 01/28/24 9:24:00 EDT, Weight Dosing Follow-up No qualifying data available Problem List/Past Medical History Ongoing Benign hypertension with chronic kidney disease, stage II Chronic fatigue syndrome Hypertension Hypothyroid Nonalcoholic fatty liver disease without nonalcoholic steatohepatitis (SYKES) Osteoarthritis Right shoulder pain Rotator cuff syndrome of right shoulder Stage 2 chronic kidney disease Supraventricular tachycardia Vitamin D deficiency Historical No qualifying data Medications aspirin 81 mg Chew Tab, 81 mg= 1 tab(s), Oral, Daily calcium (as carbonate) 600 mg oral tablet, 600 mg= 1 tab(s), Oral, BID, 1 refills levothyroxine 88 mcg (0.088 mg) Tab, 88 mcg= 1 tab(s), Oral, Daily, 3 refills lysine 500 mg oral tablet, 500 mg= 1 tab(s), Oral, Daily Vitamin D 50,000 intl units (1.25 mg) oral capsule, 65202 International_Unit= 1 cap(s), Oral, qWeek, 3 refills Allergies penicillin (Swelling) Social History Tobacco Never (less than 100 in lifetime) Tobacco Use:. Never Smokeless Tobacco Use:. Cigarettes, 02/18/2024 Family History Primary malignant neoplasm of lung: Father. Prostate cancer: Father. Immunizations Vaccine Date Status Comments SARS-CoV-2 (COVID-19) mRNAMUL.ORD![id number] 05/29/2022 Recorded 2024-02-17: TPV70 SARS-CoV-2 (COVID-19) mRNA BNT-162b2 vax 06/11/2021 Recorded 2024-02-17: TPV70 SARS-CoV-2 (COVID-19) Ad26 vaccine 09/22/2020 Recorded hepatitis A-hepatitis B vaccine 04/18/2008 Recorded hepatitis A-hepatitis B vaccine 11/18/2007 Recorded typhoid vaccine, inactivated 10/14/2007 Recorded diphtheria/pertussis , acel/tetanus adult 10/14/2007 Recorded poliovirus vaccine, inactivated 10/14/2007 Recorded hepatitis A-hepatitis B vaccine 10/14/2007 Recorded [facility] Comment on above: Result Comment: Elec tronically Signed By: Gwen Conklin\.br\Date and Time Signed: 02/18/24 10:27 EDT Ambulatory Visit Summaryon 0 01-28-2024 Ambulatory Visit Summary Ambulatory Visit Summary ANA ROSA TUCKER :1950 Visit Date:01/28/2024 Ambulatory Visit Instructions Your [...] 10:00 AM EDT With: Gwen Conklin Where: [facility] Family Medicine [facility] Ambulatory Visit Summary Ambulatory Visit Summary ANA ROSA TUCKER :1950 Visit Date:01/28/2024 Ambulatory Visit Instructions Your [...] for choosing us for your care. Normal [facility] Family Medicine Office/Clini c Noteon 01-28-2024 Family Medicine Office/Clinic Note Family Medicine Office/Clinic Note HPI Staff Ana Rosa is a 74 year old female presenting to establish care Establish Care: History: Any previous diagnosis: Skin cancer, Hypertention History of seeing any specialist: Discovery Manager ( Dr. Ferreira) When was your last [...] 9:24:00 E (more content not included)... Normal [facility] Comment on above: Result Comment: Elec tronically [...] (COVID-19) RNA MAURICE+probe Ql (Unsp spec) Negative Anytime DD Other COVID/FLU RT-PCR Negative [facility] Other MM screening mammo BI w/CADo n 11-29-2021 MM screening mammo BI w/CAD [facility] [address] [place] [id number] Mammography Report Signed Patient: Ana Rosa Tucker MR#: [id number] : 1950 Acct:[id number] Age/Sex: 71 / F ADM Date: 11/29/21 Loc: [place] Room: Type: [facility] Attending Dr: Referral Self Ordering Provider: SELF,REFERRAL [...] Elizabeth Dill M.D.11/29/2021 2:44 PM Dictation Location: [facility] Transcribed By: ROLAND 11/29/21 1444 Dictated By: Elizabeth Dill MD 11/29/21 1434 Signed By: 11/29/21 1444 Normal [facility] Comprehensive Metabolic Pane felicia 11-21-2021 Albumin [Mass/Vol] 4.3 g/dL Normal 3.6-5.1 Linsey gonzalez [place] [employer] Operator Comment on above: Performed By: #### L IPD, CMP #### [facility] [address], [place] [id number] Albumin/Globulin [Mass ratio] 2.0 {ratio} Normal 1.0-2.5 [facility] Specialist Comment on above: Performed By: #### L IPD, CMP #### [facility] [address], [place] [id number] ALP [Catalytic activity/Vol] 95 U/L Normal 35-119 [facility] [employer] Operator Comment on above: Performed By: #### L IPD, CMP #### [facility] [address], [place] [id number] ALT [Catalytic activity/Vol] 21 U/L Normal 6-33 [facility] Specialist Comment on above: Result Comment: 06/19 Female reference range changed. Performed By: #### L IPD, CMP #### [facility] [address], [place] [id number] Anion gap [Moles/Vol] 12 mmol/L Normal 12-20 [facility] Specialist Comment on above: Result Comment: Effe ctive 07/25/2019 reference range changed. Performed By: #### L IPD, CMP #### [facility] [address], [place] [id number] AST [Catalytic activity/Vol] 21 U/L Normal 9-34 [facility] Specialist Comment on above: Performed By: #### L IPD, CMP #### [facility] [address], [place] [id number] Bilirubin [Mass/Vol] 0.67 mg/dL Normal 0.30-1.20 [facility] Comment on above: Performed By: #### L IPD, CMP #### [facility] [address], [place] [id number] BUN/CREA 18 Ratio Normal 6-22 [facility] Specialist Comment on above: Performed By: #### L IPD, CMP #### [facility] [address], [place] [id number] Calcium [Mass/Vol] 9.6 mg/dL Normal 8.6-10.2 Linsey gonzalez [place] [employer] Operator Comment on above: Performed By: #### L IPD, CMP #### [facility] [address], [place] [id number] Chloride [Moles/Vol] 107 mmol/L Normal 98-107 [facility] Comment on above: Performed By: #### L IPD, CMP #### [facility] [address], [place] [id number] CO2 [Moles/Vol] 26 mmol/L Normal 20-31 [facility] Comment on above: Performed By: #### L IPD, CMP #### [facility] [address], [place] [id number] Creatinine [Mass/Vol] 0.9 mg/dL Normal 0.6-1.4 [facility] Special[facility] Comment on above: Performed By: #### L IPD, CMP #### [facility] [address], [place] [id number] eGFRAA 78 mL/min/1.73m2 Normal >60 [facility] Specialist Comment on above: Performed By: #### L IPD, CMP #### [facility] [address], [place] [id number] eGFRNAA 65 mL/min/1.73m2 Normal >60 [facility] Specialist Comment on above: Performed By: #### L IPD, CMP #### [facility] [address], [place] [id number] Globulin (S) [Mass/Vol] 2.1 g/dL Normal 1.9-3.7 [facility] Comment on above: Performed By: #### L IPD, CMP #### [facility] [address], [place] [id number] Glucose [Mass/Vol] 112 mg/dL High 65-99 [facility] Comment on above: Result Comment: For FASTING Glucose --- ADA reference ranges: Normal 65-99 mg/dl Prediabetes 100-125 Diabetes >/= 126 Performed By: #### L IPD, CMP #### [facility] [address], [place] [id number] Potassium [Moles/Vol] 4.6 mmol/L Normal 3.5-5.5 [facility] Comment on above: Performed By: #### L IPD, CMP #### [facility] [address], [place] [id number] Protein [Mass/Vol] 6.4 g/dL Normal 6.1-8.1 [facility] Turning Machine Operator Comment on above: Performed By: #### L IPD, CMP #### [facility] [address], [place] [id number] Sodium [Moles/Vol] 141 mmol/L Normal 135-146 [facility] Specialist Comment on above: Performed By: #### L IPD, CMP #### [facility] [address], [place] [id number] Urea nitrogen [Mass/Vol] 16 mg/dL Normal 7-25 [facility] Specialist Comment on above: Performed By: #### L IPD, CMP #### [facility] [address], [place] [id number] Lipid Panelon 11-21-2021 Cholesterol [Mass/Vol] 236 mg/dL High 125-200 [facility] Special[facility] Comment on above: Result Comment: Low risk < 200mg/dL Borderline risk 201-239 mg/dl High risk > or equal to 240 Performed By: #### L IPD, CMP #### [facility] [address], [place] [id number] Cholesterol in HDL [Mass/Vol] 40 mg/dL Low >40 [facility] Special[facility] Comment on above: Result Comment: High Cardiovascular Risk HDL <40 mg/dL Low Cardiovascular Risk HDL > or equal to 60 mg/dl Performed By: #### L IPD, CMP #### [facility] [address], [place] [id number] Cholesterol in LDL [Mass/Vol] 157 mg/dL Normal [facility] Comment on above: Result Comment: LDL ATP III CLASSIFICATION LDL less than 100 mg/dl Optimal LDL 100-129 mg/dl Near or above optimal LDL 130-159 Borderline high LDL 160-189 High LDL greater than 189 mg/dl Very High Performed By: #### L IPD, CMP #### [facility] [address], [place] [id number] Cholesterol in VLDL [Mass/Vol] 39 mg/dL Normal [facility] Specialist Comment on above: Performed By: #### L IPD, CMP #### [facility] [address], [place] [id number] Cholesterol.total/Ch olesterol in HDL [Mass ratio] 6 {ratio} Normal [facility] [employer] Operator Comment on above: Performed By: #### L IPD, CMP #### [facility] [address], [place] [id number] Triglyceride [Mass/Vol] 194 mg/dL High 30-150 [facility] [employer] Operator Comment on above: Result Comment: TRIG ATPIII CLASSIFICATIONS TRIG less than 150 mg/dl Normal TRIG 150-199 mg/dl Borderline High TRIG 200-500 mg/dl High TRIG greather than 500 mg/dl Very High Performed By: #### L IPD, CMP #### [facility] [address], [place] [id number] CBC AUTO DIFFon 04-15-2021 BASO # 0.0 103/ul Normal 0.0-0.1 [place] Comment on above: Performed By: #### C BC #### [facility] [address] [place] [address] Dr. Wendy Kingsley Basophils/100 WBC (Bld) 0.6 % Normal 0.2-2.0 [place] Comment on above: Performed By: #### C BC #### [facility] [address] [place] [address] Dr. Wendy Kingsley EO # 0.1 103/ul Normal 0.0-0.7 [place] Comment on above: Performed By: #### C BC #### [facility] [address] [place] [address] Dr. Wendy Kingsley Eosinophils/100 WBC (Bld) 1.6 % Normal 0.9-7.0 [place] Comment on above: Performed By: #### C BC #### [facility] [address] [place] [address] Dr. Wendy Kingsley Erythrocyte distribution width (RBC) [Ratio] 13.0 % Normal 11.0-15.0 [place] Comment on above: Performed By: #### C BC #### [facility] [address] [place] [address] Dr. Wendy Kingsley Hematocrit (Bld) [Volume fraction] 43.0 % Normal 36.0-48.0 [place] Comment on above: Performed By: #### C BC #### [facility] [address] [place] [address] Dr. Wendy Kingsley Hemoglobin (Bld) [Mass/Vol] 13.9 g/dL Normal 12.0-16.0 [place] Comment on above: Performed By: #### C BC #### [facility] [address] [place] [address] Dr. Wendy Kingsley IG # 0.02 10e3/ul Normal 0.00-0.03 [place] Comment on above: Performed By: #### C BC #### [facility] [address] [place] [address] Dr. Wendy Kingsley IG % 0.4 % Normal 0.0-0.5 [place] Comment on above: Performed By: #### C BC #### [facility] [address] [place] [address] Dr. Wendy Kingsley LYMPH # 1.8 103/ul Normal 1.2-3.8 [place] Comment on above: Performed By: #### C BC #### [facility] [address] [place] [address] Dr. Wendy Kingsley Lymphocytes/100 WBC (Bld) 34.2 % Normal 20.5-60.0 [place] Comment on above: Performed By: #### C BC #### [facility] [address] [place] [address] Dr. Wendy Kingsley MANUAL DIFF REQ NO Normal [facility] Comment on above: Performed By: #### C BC #### [facility] [address] [place] [address] Dr. Wendy Kingsley MCH (RBC) [Entitic mass] 29.8 pg Normal 26.7-34.0 [place] Comment on above: Performed By: #### C BC #### [facility] [address] [place] [address] Dr. Wendy Kingsley MCHC (RBC) [Mass/Vol] 32.3 g/dL Normal 29.9-35.2 [place] Comment on above: Performed By: #### C BC #### [facility] [address] [address] [address] Wendy Kingsley MCV (RBC) [Entitic vol] 92.1 fL Normal 81.0-99.0 [place] Comment on above: Performed By: #### C BC #### [facility] [address] [address] [address] Wendy Kingsley MONO # 0.6 103/ul Normal 0.3-0.8 [place] Comment on above: Performed By: #### C BC #### [facility] [address] [address] [address] Wendy Kingsley Monocytes/100 WBC (Bld) 11.7 % Normal 1.7-12.0 [place] Comment on above: Performed By: #### C BC #### [facility] [address] [address] [address] Wendy Kingsley NEUT # 2.6 103/ul Normal 1.4-6.5 [place] Comment on above: Performed By: #### C BC #### [facility] [address] [address] [address] Wendy Kingsley Neutrophils/100 WBC (Bld) 51.5 % Normal 43.0-75.0 [place] Comment on above: Performed By: #### C BC #### [facility] [address] [address] [address] Wendy Kingsley Platelet mean volume (Bld) [Entitic vol] 12.4 fL Normal 9.5-13.5 [place] Comment on above: Performed By: #### C BC #### [facility] [address] [address] [address] Wendy Kingsley PLT 144 103/ul Critically low 150-450 [facility] Comment on above: Performed By: #### C BC #### [facility] [address] [address] [address] Wendy Kingsley RBC 4.67 106/ul Normal 4.20-5.40 [place] Comment on above: Performed By: #### C BC #### [facility] [address] [address] [address] Wendy Kingsley WBC 5.1 103/ul Normal 4.0-11.0 [place] Comment on above: Performed By: #### C BC #### [facility] [address] [address] [address] Wendy Kingsley GLYCOHEMOGLOBIN A1Con 2020 ADA RECOMMENDATION ADA THERAPEUTIC TARGET 6.0 - 7.0 ACTION SUGGESTED > 7.0 Normal [place] Comment on above: Performed By: #### A 1C #### [facility] [address] [place] [address] Dr. Wendy Kingsley Glucose [Mass/Vol] 108 mg/dL Normal [facility] Comment on above: Performed By: #### A 1C #### [facility] [address] [place] [address] Dr. Wendy Kingsley HbA1c (Bld) [Mass fraction] 5.4 % Normal <=6.0 [place] Comment on above: Performed By: #### A 1C #### [facility] [address] [place] [address] Dr. Wendy Kingsley LIPID PROFILEon 04-15-2021 CHOL-HDL RATIO NORM SEE BELOW Normal [facility] Comment on above: Result Comment: 3.3 - 4.4 LOW RISK 4.4 - 7.1 AVERAGE RISK 7.1 - 11.0 MODERATE RISK >11.0 HIGH RISK Performed By: #### L IPID, BMP #### [facility] [address] [place] [address] Dr. Wendy Kingsley Cholesterol [Mass/Vol] 214 mg/dL Critically high <=200 [place] Comment on above: Performed By: #### L IPID, BMP #### [facility] [address] [place] [address] Dr. Wendy Kingsley Cholesterol in HDL [Mass/Vol] 38 mg/dL Normal [place] Comment on above: Performed By: #### L IPID, BMP #### [facility] [address] [place] [address] Dr. Wendy Kingsley Cholesterol in LDL [Mass/Vol] 138.8 mg/dL Normal [place] Comment on above: Performed By: #### L IPID, BMP #### [facility] [address] [place] [address] Dr. Wendy Kingsley Cholesterol.total/Ch olesterol in HDL [Mass ratio] 5.6 {ratio} Normal [place] Comment on above: Performed By: #### L IPID, BMP #### [facility] [address] [address] [address] Wendy Kingsley HDL NORMAL > or = 60 mg/dl - LOW CARDIOVASCULAR RISK <40 mg/dl - HIGH CARDIOVASCULAR RISK Normal [place] Comment on above: Performed By: #### L IPID, BMP #### [facility] [address] [place] [address] Dr. Wendy Kingsley LDL CALC NORMAL SEE BELOW Normal [facility] Comment on above: Result Comment: <100 mg/dl OPTIMAL 100 - 129 mg/dl NEAR OR ABOVE OPTIMAL 130 - 159 mg/dl BORDERLINE HIGH 160 - 189 mg/dl HIGH >190 mg/dl VERY HIGH Performed By: #### L IPID, BMP #### [facility] [address] [address] [address] Wendy Kingsley Triglyceride [Mass/Vol] 186 mg/dL Critically high <=150 [place] Comment on above: Performed By: #### L IPID, BMP #### [facility] [address] [place] [address] Dr. Wendy Kingsley VLDL CALC 37.2 mg/dL Normal [place] Comment on above: Performed By: #### L IPID, BMP #### [facility] [address] [place] [address] Dr. Wendy Kingsley PROF CHEM 8 (BAS METB)on Anion gap [Moles/Vol] 11.2 mmol/L Normal [place] Comment on above: Performed By: #### L IPID, BMP #### [facility] [address] [place] [address] Dr. Wendy Kingsley Calcium [Mass/Vol] 9.0 mg/dL Normal 8.4-10.2 [facility] Comment on above: Performed By: #### L IPID, BMP #### [facility] [address] [address] [address] Wendy Kingsley Chloride [Moles/Vol] 106 mmol/L Normal 98-107 [place] Comment on above: Performed By: #### L IPID, BMP #### [facility] [address] [address] [address] Wendy Kingsley CO2 [Moles/Vol] 26.2 mmol/L Normal 22.0-30.0 [facility] Comment on above: Performed By: #### L IPID, BMP #### [facility] [address] [place] [address] Dr. Wendy Kingsley Creatinine [Mass/Vol] 0.95 mg/dL Normal 0.52-1.04 [place] Comment on above: Performed By: #### L IPID, BMP #### [facility] [address] [place] [address] Dr. Wendy Kingsley EGFR-AF SOUTH AFRICAN >60 Normal >=60 [facility] Comment on above: Performed By: #### L IPID, BMP #### [facility] [address] [place] [address] Dr. Wendy Kingsley EGFR-NON AF SOUTH AFRICAN 58 mL/min/1.73m2 Critically low >=60 [place] Comment on above: Performed By: #### L IPID, BMP #### [facility] [address] [place] [address] Dr. Wendy Kingsley Glucose [Mass/Vol] 96 mg/dL Normal 74-106 [facility] Comment on above: Performed By: #### L IPID, BMP #### [facility] [address] [address] [address] Wendy Kingsley Potassium [Moles/Vol] 4.4 mmol/L Normal 3.4-5.0 [place] Comment on above: Performed By: #### L IPID, BMP #### [facility] [address] [place] [address] Dr. Wendy Kingsley Sodium [Moles/Vol] 139 mmol/L Normal 137-145 [facility] Comment on above: Performed By: #### L IPID, BMP #### [facility] [address] [address] [address] Wendy Kingsley Urea nitrogen [Mass/Vol] 17.0 mg/dL Normal 7.0-17.0 [place] Comment on above: Performed By: #### L IPID, BMP #### [facility] [address] [id number] Wendy Kingsley Urea nitrogen/Creatinine [Mass ratio] 17.9 mg/mg Normal [place] Comment on above: Performed By: #### L IPID, BMP #### [facility] [address] [place] [address] Dr. Wendy Kingsley CNCOon 01-24-2019 [facility]CO Letter Text Normal [facility] V[facility] Signs Date Time Vital Sign Value Performing Clinician Facility 05-15-2023 10:15-0400 Body height 160.02 cm Silvia Morris Other [facility] Other 05-15-2023 10:15-0400 Body mass index (BMI) [Ratio] 28.55 kg/m2 Silvia Morris Other [facility] Other 05-15-2023 10:15-0400 Body temperature 98.4 [degF] Silvia Morris Other [facility] Other 05-15-2023 10:15-0400 Body weight 73.12 kg Silvia Morris Other [facility] Other 05-15-2023 10:15-0400 Diastolic blood pressure 80 mm[Hg] Silvia Morris Other [facility] Other 05-15-2023 10:15-0400 Respiratory rate 18 /min Silvia Morris Other [facility] Other 05-15-2023 10:15-0400 SaO2% (BldA) [Mass fraction] 95 % Silvia Morris Other [facility] Other 05-15-2023 10:15-0400 Systolic blood pressure 110 mm[Hg] Silvia Morris Other [facility] Other Encounters Encounter Date Encounter Type Care Provider Facility Start: 04-01-2024 End: 04-01-2024 ambulatory IZAIAH LEVINE Not Available Start: 03-10-2024 End: 03-10-2024 ambulatory Gwen L Brian Facility:[facility] Start: 02-25-2024 End: 02-25-2024 ambulatory RENEE SOLIMAN Not Available Start: 02-18-2024 End: 02-18-2024 ambulatory Gwen L Brian Facility:[facility] Start: 02-08-2024 End: 02-09-2024 ambulatory CHELSYJD MAYNARD Not Available Start: 02-04-2024 End: 02-04-2024 ambulatory ANTONELLA CHADWICK Not Available Start: 02-02-2024 End: 02-02-2024 ambulatory SHAKIRA ORONA Not Available Start: 01-28-2024 End: 01-28-2024 ambulatory PAIGE VERA Not Available Start: 01-28-2024 End: 01-28-2024 ambulatory Gwen L Brian Facility:[facility] Start: 01-25-2024 End: 01-26-2024 ambulatory HUSSEIN SCHUSTER Not Available Start: 01-22-2024 ambulatory Gwen Brian Facility:[facility] Start: 01-14-2024 End: 01-14-2024 ambulatory SHAKIRA ORONA Not Available Start: 01-14-2024 End: 01-14-2024 ambulatory SHAKIRA ORONA Not Available Start: 12-31-2023 End: 12-31-2023 ambulatory SHAKIRA ORONA Not Available Start: 12-17-2023 End: 12-17-2023 ambulatory SHAKIRA ORONA Not Available Start: 05-15-2023 End: 05-15-2023 ambulatory Silvia Morris Other [facility] Other Start: 05-15-2023 Office outpatient ne w 20 minutes Silvia Morris [facility] Start: 11-29-2021 End: 11-29-2021 Patient encounter procedure MD Shakira [place]a [facility] Start: 04-15-2021 End: 04-16-[address] SHAKIRA ORONA Facility: Start: 11-01-2018 End: 11-02-2018 Patient encounter procedure DEFAULT PHYSICIAN Facility:[facility] Procedures Date Procedure Procedure Detail Performing Clinician Start: 11-29-2021 Screening mammograph y of bilateral breasts MD Shakira [place] Work Phone: Payers Date Payer Category Payer Private Health Insurance [id number] Self-pay 1950 Unknown [id number] 1950 Unknown [id number] [id number] 1950 Unknown [id number] [id number] 1948 Unknown [id number] [id number] 1948 Unknown [id number] 2.16.840.1.146073.3.579.2.1259 1948 Unknown [id number] 2.16.840.1.773254.3.579.2.1258 1948 Unknown [id number] 2.16.840.1.135141.3.579.2.1259 1948 Unknown [id number] 2.16.840.1.882170.3.579.2.125 1948 Unknown [id number] 2.16.840.1.888375.3.579.2.1258 1948 Unknown [id number] 2.16.840.1.652450.3.579.2.1258 1948 Unknown [id number] 2.16.840.1.869035.3.579.2.1258 1948 Unknown [id number] 2.16.840.1.524397.3.579.2.1258 1948 Unknown [id number] 2.16.840.1.887547.3.579.2.1258 1948 Unknown [id number] 2.16.840.1.922247.3.579.2.1258 1948 Unknown [id number] 2.16.840.1.950975.3.579.2.1259 Medicare Medicare [id number] Medicare [id number] 2.1 [id number] Private Health Insurance [employer] MCR PFFS 1 [id number] Unknown Unknown [id number] [id number] Unknown Barbara WELLS/HANNAH [id number] Social History Date Type Detail Facility Tobacco smoking status AZIS Unknown if ever smoked [facility] Work Phone: Start: 1950 Sex Assigned At Female F [facility] Sex Assigned At Sex Assigned At Bir th [facility] [employer] Other Clinical Note 03-10-2024 Note Date & Type Note Facility 03-10-2024 Note Patient Education Orthopedics Deltoid Disruption A deltoid disruption is a shoulder injury. The deltoid is a muscle in the upper arm that is responsible for most of the movement and rotation of the shoulder. A deltoid disruption occurs when the deltoid muscle pulls away from the bone that is beneath it. The muscle may pull away from the bone completely or partially. This may affect your ability to move your shoulder and arm. What are the causes? This condition may be caused by: ? Direct impact on the shoulder or injury to the shoulder. ? Injury or overuse from throwing hard. This may occur when participating in sports. Deltoid disruption could also occur as a complication after shoulder surgery. What increases the risk? You are more likely to develop this condition if you: ? Participate in contact sports. ? Participate in sports that involve throwing hard and repeatedly, such as pitching in baseball. ? Have had a previous injury to the deltoid muscle. ? Do not have good physical conditioning, including strength and flexibility. ? Use anabolic steroids. What are the signs or symptoms? Symptoms of this condition include: ? Losing strength in your shoulder and arm. ? Not being able to move or rotate your shoulder and arm like you normally would. ? Pain when moving your shoulder. This may be a ripping or tearing sensation. ? Redness, swelling, or bruising in your shoulder. ? Your shoulder feeling warm to the touch. ? Your shoulder looking curved in (concave) or not feeling as firm as before. How is this diagnosed? This condition may be diagnosed based on your medical history and a physical exam. You may also have imaging tests such as an MRI or an X-ray to check for a fracture, dislocation, or rotator cuff injury in your shoulder. How is this treated? Treatment for this condition depends on the severity of the injury. Treatment may include: ? Rest, ice, and gradual stretching and strengthening exercises. ? A sling to hold the shoulder in place (immobilization) while it heals. ? Pain medicine. ? Physical therapy. ? Surgery. You may need surgery if you have a severe injury. Follow these instructions at home: If you have a sling: ? Wear it as told by your health care provider. Remove it only as told by your health care provider. ? Loosen the sling if your fingers tingle, become numb, or turn cold and blue. ? Keep the sling clean. ? If the sling is not waterproof: ? Do not let it get wet. ? Cover it with a watertight covering when you take a bath or shower. ? Ask your health care provider when it is safe to drive. Managing pain and swelling ? If directed, put ice on the injured area. ? Put ice in a plastic bag. ? Place a towel between your skin and the bag. ? Leave the ice on for 20 minutes, 2?3 times a day. ? If directed, apply heat to the affected area before you exercise. Use the heat source that your health care provider recommends, such as a moist heat pack or a heating pad. ? Place a towel between your skin and the heat source. ? Leave the heat on for 20?30 minutes. ? Remove the heat if your skin turns bright red. This is especially important if you are unable to feel pain, heat, or cold. You may have a greater risk of getting burned. Medicines ? Take wmdg-qrn-syhjbyf and prescription medicines only as told by your health care provider. ? Ask your health care provider if the medicine prescribed to you: ? Requires you to avoid driving or using machinery. ? Can cause constipation. You may need to take actions to prevent or treat constipation, such as: ? Drink enough fluid to keep your urine pale yellow. ? Take dxvo-qiy-axnejmw or prescription medicines. ? Eat foods that are high in fiber, such as beans, whole grains, and fresh fruits and vegetables. ? Limit foods that are high in fat and processed sugars, such as fried or sweet foods. Activity ? Rest the injured area. Avoid activities that cause pain. ? Return to your normal activities as told by your health care provider. Ask your health care provider what activities are safe for you. ? Do yvcxk-sf-nawscr exercises only as told by your health care provider. General instructions ? Do not use any products that contain nicotine or tobacco, such as cigarettes, e-cigarettes, and chewing tobacco. If you need help quitting, ask your health care provider. ? Keep all follow-up visits as told by your health care provider. This is important. How is this prevented? ? Warm up and stretch before being active. ? Cool down and stretch after being active. ? Give your body time to rest between periods of activity. ? Maintain physical fitness, especially strength and flexibility in your shoulders. Contact a health care provider if: ? Your pain, swelling, or weakness gets worse even with treatment. Get help right away if: (more content not included)... [facility] Evaluation note 05-15-2023 Note Date & Type [...] days. Patient reports she is leaving for [place] tomorrow and is concerned that she will be sick while she was gone. A Z-Steven was prescribed in case she needs it. Patient verbalizes understanding of this. [facility] Other Evaluation note Note Date & Type Note Facility Evaluation note No assessment information [facility] Work Phone: History general Narrative - Reported Note Date & Type Note Facility History general Narrative - Reported Type Medical History Gastritis and gastro duodenitis, unspecified, without mention of hemorrhage Medical History Abdominal pain Surgical History CHOLECYSTECTOMY Surgical History TUBAL LIGATION Hospitalization History No Hospitalization histo ry information [facility] Other Summary Purpose Family History No Family [...] and content) DATE CREATED AUTHOR 11/02/2018 [facility] DATE CREATED AUTHOR AUTHOR'S ORGANIZ ATION 01/27/2019 [facility] DATE CREATED AUTHOR AUTHOR'S ORGANIZ ATION 04/15/2021 [facility] DATE CREATED AUTHOR AUTHOR'S ORGANIZ ATION 11/22/2021 [facility] DATE CREATED AUTHOR AUTHOR'S ORGANIZ ATION 12/14/2021 [facility] DATE CREATED AUTHOR AUTHOR'S ORGANIZ ATION 03/11/2024 [facility] DATE CREATED AUTHOR AUTHOR'S ORGANIZ ATION 04/03/2024 [facility] EPIC Care Teams (unrecognized sec tion and content) [...] BE BASED ON THE PRIMARY CLINICAL RECORDS. [employer] provides no warranty or guarantee of the accuracy or completeness of information in this document.
== END 2024-04-20 12:52 | disposition home or self-care (01) ==
LOC: PST 12:51
PROVIDERS: PCP Nurse Practitioner; Visit Provider Ophthalmology
DX: Z01.818 Encounter for other preprocedural examination (principal); H25.811 Combined forms of age-related cataract, right eye

== ENCOUNTER 2024-04-21 06:14 | Day surgery (SDC) | payer MEDICARE, SELFPAY ==
--- NOTE | 2024-04-21 | OP_ITS ---
OPERATION DATE: 04/21/2024 SURGEON: Lele Hollingsworth D.O. PREOPERATIVE DIAGNOSIS: Nuclear sclerotic cataract right eye. POSTOPERATIVE DIAGNOSIS: Nuclear sclerotic cataract right eye. PROCEDURE NAME: Cataract extraction with intraocular lens placement of the right eye. ANESTHESIA: Topical ESTIMATED BLOOD LOSS: Zero. COMPLICATIONS: None. PROCEDURE: The patient was brought to the Operating Room in supine position. After proper identification, the right eye was prepped and draped in a sterile ophthalmic fashion. A paracentesis created at the 11 o'clock position. Approximately 1 cc of unpreserved Xylocaine was injected into the anterior chamber followed by Amvisc Plus. Using a 2.6 mm Keratome blade, a clear corneal incision was created at the 9 o'clock limbus. A cystotome was then used to begin a curvilinear capsulorrhexis that was continued for 360 degrees with the Utrata forceps. BSS on a 26 gauge cannula was injected beneath the anterior capsule to hydrodissect as well as hydrodelineate the lens. After ensuring mobility, phacoemulsification was performed in a sinkrax-rxm-zklenw-type fashion. After all nuclear material had been removed from the eye, IA was introduced and all residual cortical material was cleaned up. Additional Amvisc Plus was injected into the posterior bag and a lens model MX60, 21.5 diopters was injected and dialed into position. After ensuring centration, IA was reintroduced into the anterior chamber and all residual Amvisc Plus was removed from the eye. BSS on a 30 gauge cannula was injected into the stroma of both the clear corneal incision as well as paracentesis to hydrate the wounds. Additional BSS was injected into the anterior chamber to pressurize the eye at approximately 20 to 22 mmHg by finger tension. 0.1 cc of antibiotic was injected into the anterior chamber and Weck-Britney sponges were used to check the wounds to be watertight. One drop of apraclonidine and one drop of prednisolone acetate placed into the eye and a shield was placed over top. The patient was sent to the postoperative area in satisfactory condition to follow up the following day for postoperative care. VAM[facility]I
--- NOTE | 2024-04-21 | HP_ITS ---
PREOPERATIVE HISTORY AND PHYSICAL ? Date:? 04/19/2024 ? HISTORY:? The patient is a 74-year-old white female with complaints of declining vision out of her right eye.? The gradual onset of this has been occurring over the last 1-2 years.? She states having difficulty with her near vision with reading and computer work.? She also states having difficulty with daily activities.? Social History: has difficulty at night time while driving, due to headlights creating glare and halos. ? PAST OCULAR HISTORY:? Dry eyes. ? PAST MEDICAL HISTORY:? Vitamin D deficiency, supraventricular tachycardia, stage 2 chronic kidney disease, osteoarthritis, non-alcoholic fatty liver disease, hypothyroidism, chronic fatigue syndrome, benign hypertension with chronic kidney disease and backache.? ? PAST SURGICAL HISTORY:? She has a history of a cholecystectomy, spine surgery, tonsillectomy and tubal ligation. ? SOCIAL HISTORY:? Denies tobacco, alcohol or recreational drug abuse. ? SYSTEMIC MEDICATIONS:? Include cholecalciferol, multivitamin, 81 mg aspirin, lysine, levothyroxine, calcium citrate, ergocalciferol, meloxicam. ? ALLERGIES TO MEDICATIONS:? Penciclovir and penicillin. ? REVIEW OF SYSTEMS:? No pertinent positives. ? PHYSICAL EXAM: ? GENERAL:? In general, she is awake, alert and oriented x3, well developed, well nourished, in no acute distress.? ? HEART:? Regular rate and rhythm. ? LUNGS:? Clear bilaterally. ? ABDOMEN:? Soft, non-tender, non-distended. ? EXTREMITIES:? No pitting edema. ? OPHTHALMIC EXAM:? Revealed a visual acuity of 20/50 in the right and 20/40 in the left.? Both eyes glared to 20/200.? Pupils motility, muscle balance and confrontational visual vásquez within normal limits bilaterally.? Pressures are measured at 17 and 18, right and left eye respectively.? ?Slit lamp exam revealed blepharitis with a severe decrease in tear film bilaterally.? Conjunctiva, cornea, anterior chamber and iris were within normal limits bilaterally.? Lens status demonstrated 2-2+ nuclear sclerosis with 1+ cortical changes and vacuoles bilaterally. ? FUNDUS EXAM:? Revealed good view with good dilation bilaterally.? Optic discs, macula, vessels, periphery and vitreous were within normal limits bilaterally.? ? ASSESSMENT AND PLAN:? Visually significant cataract, right eye.? After the risks, benefits, and alternatives as well as expectations were delivered to the patient, she elected to go forward with cataract removal.? She understands those risks to include but not limited to infection, bleeding, loss of vision or loss of the eye itself.? Secondly, she understands that postoperatively she is likely to require spectacle correction for her best visual acuity.? Finally, a complete ophthalmic exam was performed and there was not determined to be any other source of vision decline other than that of cataract.? After understanding all risks as well as expectations, she elected to go forward with the procedure as listed above and will be doing so in the near future. VAMSHI
--- OUTSIDE RECORDS SUMMARY | 2024-04-21 06:16 | XMS_ITS | CCD ---
Author Organization [facility] Care Team Providers Care Display Decorator Name Role Phone PHYSICIAN, DEFAULT Admitting Unavailable PHYSICIAN, DEFAULT Attending Unavailable YEYO, DR ROSENBERG Attending Unavailable YEYO, DR ROSENBERG Consulting Unavailable YEYO, DR ROSENBERG Admitting Unavailable MD Shakira Orona Primary Care Provider MD Shakira Orona Referring Provider [phone] Self, Referral Attending Provider Unavailable Silvia Morris Unavailable Gwen Shelton Attending Unavailable Gwen Shelton Attending Unavailable Gwen Shelton Attending Unavailable SHAKIRA ORONA Attending Unavailable SHAKIRA ORONA Attending Unavailable SHAKIRA ORONA Attending Unavailable HEMESHAKIRA ELY Referring Unavailable [...] Penicillins (Antibiotic) Propensity to adverse reactions Unknown [facility] Other (1 source) FAVIOR Propensity to adverse reactions Unknown [facility] Other (1 source) Penicillin; Translations: [penicillin] Drug Allergy [facility] (1 source) No Known Medication Allergies; Translations: [No Known Medication Allergies] Propensity to adverse reactions (disorder) [facility] Medications Current Medications Medication Drug Class(es) [...] y (more content not included)... Normal [facility] Family Medicine Office/Clini c Noteon 03-10-2024 Family [...] reviewed MRI results. will send referral to [facility] access orthopedics. pt is c/o 10/10 pain [...] 50,000 intl units (1.25 mg) oral capsule, 21529 International_Unit= 1 cap(s), Oral, qWeek, 3 refills Allergies penicillin (Swelling) Social History Tobacco Never (less than 100 in lifetime) Tobacco Use:. Never Smokeless Tobacco Use:. Cigarettes, Household tobacco concerns: No. Yes, 03/10/2024 Family History Primary malignant neoplasm of lung: Father. Prostate cancer: Father. Immunizations Vaccine Date Status Comments SARS-CoV-2 (COVID-19) mRNAMUL.ORD![id number] 05/29/2022 Recorded 2024-02-17: TPV70 SARS-CoV-2 (COVID-19) mRNA BNT-162b2 vax 06/11/2021 Recorded 2024-02-17: TPV70 SARS-CoV-2 (COVID-19) Ad26 vaccine 09/22/2020 Recorded hepatitis A-hepatitis B vaccine 04/18/2008 Recorded hepatitis A-hepatitis B vaccine 11/18/2007 Recorded typhoid vaccine, inactivated 10/14/2007 Recorded diphtheria/pertussis , acel/tetanus adult 10/14/2007 Recorded poliovirus vaccine, inactivated 10/14/2007 Recorded hepatitis A-hepatitis B vaccine 10/14/2007 Recorded Normal [facility] Comment on above: Result Comment: Elec tronically [...] Associated Symptoms:_ none Doing MRI tomorrow @ [facility] Did 4 sessions of PT and made pain worse. Last one was done was February 07 Xray done January 24 @ [facility] showed calcium and arthritis She can not [...] an eye out for the results from [facility]. she has follow up scheduled on [...] 50,000 intl units (1.25 mg) oral capsule, 66601 International_Unit= 1 cap(s), Oral, qWeek, 3 refills Allergies penicillin (Swelling) Social History Tobacco Never (less than 100 in lifetime) Tobacco Use:. Never Smokeless Tobacco Use:. Cigarettes, 02/18/2024 Family History Primary malignant neoplasm of lung: Father. Prostate cancer: Father. Immunizations Vaccine Date Status Comments SARS-CoV-2 (COVID-19) mRNAMUL.ORD![id number] 05/29/2022 Recorded 2024-02-17: TPV70 SARS-CoV-2 (COVID-19) mRNA BNT-162b2 vax 06/11/2021 Recorded 2024-02-17: TPV70 SARS-CoV-2 (COVID-19) Ad26 vaccine 09/22/2020 Recorded hepatitis A-hepatitis B vaccine 04/18/2008 Recorded hepatitis A-hepatitis B vaccine 11/18/2007 Recorded typhoid vaccine, inactivated 10/14/2007 Recorded diphtheria/pertussis , acel/tetanus adult 10/14/2007 Recorded poliovirus vaccine, inactivated 10/14/2007 Recorded hepatitis A-hepatitis B vaccine 10/14/2007 Recorded [facility] Comment on above: Result Comment: Elec tronically [...] [facility] Ambulatory Visit Summary Ambulatory Visit Summary [...] for choosing us for your care. Normal [facility] Family Medicine Office/Clini c Noteon 01-28-2024 Family Medicine Office/Clinic Note Family Medicine Office/Clinic Note HPI Staff Ana Rosa is a 74 year old female presenting to establish care Establish Care: History: Any previous diagnosis: Skin cancer, Hypertention History of seeing any specialist: Writing Manager ( Dr. Ferreira) When was your [...] 9:24:00 E (more content not included)... Normal [facility] Comment on above: Result Comment: Elec [...] (COVID-19) RNA MAURICE+probe Ql (Unsp spec) Negative [facility] Other COVID/FLU RT-PCR Negative [facility] Other MM screening mammo BI w/CADo n 11-29-2021 MM screening mammo BI w/CAD [facility] [address] [place] [id number] Mammography Report Signed Patient: Ana Rosa Tucker MR#: [id number] : 1950 Acct:[id number] Age/Sex: 71 / F ADM Date: 11/29/21 Loc: MD Room: Type: [facility] Attending Dr: Referral Self Ordering Provider: [...] Elizabeth Dill M.D.11/29/2021 2:44 PM Dictation Location: [facility] Transcribed By: ROLAND 11/29/21 1444 Dictated By: Elizabeth Dill MD 11/29/21 1434 Signed By: 11/29/21 1444 Normal [facility] Comprehensive Metabolic Pane felicia 11-21-2021 Albumin [Mass/Vol] 4.3 g/dL Normal 3.6-5.1 Linsey gonzalez [place] [facility] Comment on above: Performed By: #### L IPD, CMP #### [facility] [address], [place] [id number] Albumin/Globulin [Mass ratio] 2.0 {ratio} Normal 1.0-2.5 [facility] Comment on above: Performed By: #### L IPD, CMP #### [facility] [address], [place] [id number] ALP [Catalytic activity/Vol] 95 U/L Normal 35-119 [facility] Comment on above: Performed By: #### L IPD, CMP #### [facility] [address], [place] [id number] ALT [Catalytic activity/Vol] 21 U/L Normal 6-33 [facility] Comment on above: Result Comment: 06/19 Female reference range changed. Performed By: #### L IPD, CMP #### [facility] [address], [place] [id number] Anion gap [Moles/Vol] 12 mmol/L Normal 12-20 [facility] Comment on above: Result Comment: Effe ctive 07/25/2019 reference range changed. Performed By: #### L IPD, CMP #### [facility] [address], [place] [id number] AST [Catalytic activity/Vol] 21 U/L Normal 9-34 [facility] Comment on above: Performed By: #### L IPD, CMP #### [facility] [address], [place] [id number] Bilirubin [Mass/Vol] 0.67 mg/dL Normal 0.30-1.20 [facility] Comment on above: Performed By: #### L IPD, CMP #### [facility] [address], [place] [id number] BUN/CREA 18 Ratio Normal 6-22 [facility] Comment on above: Performed By: #### L IPD, CMP #### [facility] [address], [place] [id number] Calcium [Mass/Vol] 9.6 mg/dL Normal 8.6-10.2 Linsey gonzalez [place] [facility] Comment on above: Performed By: #### L IPD, CMP #### [facility] [address], [place] [id number] Chloride [Moles/Vol] 107 mmol/L Normal 98-107 [facility] Comment on above: Performed By: #### L IPD, CMP #### [facility] [address], [place] [id number] CO2 [Moles/Vol] 26 mmol/L Normal 20-31 [facility] Comment on above: Performed By: #### L IPD, CMP #### [facility] [address], [place] [id number] Creatinine [Mass/Vol] 0.9 mg/dL Normal 0.6-1.4 [facility] Comment on above: Performed By: #### L IPD, CMP #### [facility] [address], [place] [id number] eGFRAA 78 mL/min/1.73m2 Normal >60 [facility] Comment on above: Performed By: #### L IPD, CMP #### [facility] [address], [place] [id number] eGFRNAA 65 mL/min/1.73m2 Normal >60 [facility] Comment on above: Performed By: #### L IPD, CMP #### [facility] [address], [place] [id number] Globulin (S) [Mass/Vol] 2.1 g/dL Normal 1.9-3.7 [facility] Comment on above: Performed By: #### L IPD, CMP #### [facility] [address], [place] [id number] Glucose [Mass/Vol] 112 mg/dL High 65-99 [facility] Comment on above: Result Comment: For FASTING Glucose --- ADA reference ranges: Normal 65-99 mg/dl Prediabetes 100-125 Diabetes >/= 126 Performed By: #### L IPD, CMP #### [facility] [address], [place] [id number] Potassium [Moles/Vol] 4.6 mmol/L Normal 3.5-5.5 [facility] Comment on above: Performed By: #### L IPD, CMP #### [facility] [address], [place] [id number] Protein [Mass/Vol] 6.4 g/dL Normal 6.1-8.1 [facility]st Comment on above: Performed By: #### L IPD, CMP #### [facility] [address], [place] [id number] Sodium [Moles/Vol] 141 mmol/L Normal 135-146 [facility] Specialist Comment on above: Performed By: #### L IPD, CMP #### [facility] [address], [place] [id number] Urea nitrogen [Mass/Vol] 16 mg/dL Normal 7-25 [facility] Comment on above: Performed By: #### L IPD, CMP #### [facility] [address], [place] [id number] Lipid Panelon 11-21-2021 Cholesterol [Mass/Vol] 236 mg/dL High 125-200 [facility] Comment on above: Result Comment: Low risk < 200mg/dL Borderline risk 201-239 mg/dl High risk > or equal to 240 Performed By: #### L IPD, CMP #### [facility] [address], [place] [id number] Cholesterol in HDL [Mass/Vol] 40 mg/dL Low >40 [facility] Comment on above: Result Comment: High Cardiovascular Risk HDL <40 mg/dL Low Cardiovascular Risk HDL > or equal to 60 mg/dl Performed By: #### L IPD, CMP #### [facility] [address], [place] [id number] Cholesterol in LDL [Mass/Vol] 157 mg/dL Normal [facility] Comment on above: Result Comment: LDL ATP III CLASSIFICATION LDL less than 100 mg/dl Optimal LDL 100-129 mg/dl Near or above optimal LDL 130-159 Borderline high LDL 160-189 High LDL greater than 189 mg/dl Very High Performed By: #### L IPD, CMP #### [facility] [address], [place] [id number] Cholesterol in VLDL [Mass/Vol] 39 mg/dL Normal [facility] Comment on above: Performed By: #### L IPD, CMP #### [facility] [address], [place] [id number] Cholesterol.total/Ch olesterol in HDL [Mass ratio] 6 {ratio} Normal [facility] Comment on above: Performed By: #### L IPD, CMP #### [facility] [address], [place] [id number] Triglyceride [Mass/Vol] 194 mg/dL High 30-150 [facility] Comment on above: Result Comment: TRIG ATPIII CLASSIFICATIONS TRIG less than 150 mg/dl Normal TRIG 150-199 mg/dl Borderline High TRIG 200-500 mg/dl High TRIG greather than 500 mg/dl Very High Performed By: #### L IPD, CMP #### [facility] [address], [place] [id number] CBC AUTO DIFFon 04-15-2021 BASO # 0.0 103/ul Normal 0.0-0.1 [facility] Comment on above: Performed By: #### C BC #### [facility] [address] [place] [address] Dr. Wendy Kingsley Basophils/100 WBC (Bld) 0.6 % Normal 0.2-2.0 [facility] Comment on above: Performed By: #### C BC #### [facility] [address] [place] [address] Dr. Wendy Kingsley EO # 0.1 103/ul Normal 0.0-0.7 [facility] Comment on above: Performed By: #### C BC #### [facility] [address] [place] [address] Dr. Wendy Kingsley Eosinophils/100 WBC (Bld) 1.6 % Normal 0.9-7.0 [facility] Comment on above: Performed By: #### C BC #### [facility] [address] [place] [address] Dr. Wendy Kingsley Erythrocyte distribution width (RBC) [Ratio] 13.0 % Normal 11.0-15.0 [facility] Comment on above: Performed By: #### C BC #### [facility] [address] [place] [address] Dr. Wendy Kingsley Hematocrit (Bld) [Volume fraction] 43.0 % Normal 36.0-48.0 [facility] Comment on above: Performed By: #### C BC #### [facility] [address] [place] [address] Dr. Wendy Kingsley Hemoglobin (Bld) [Mass/Vol] 13.9 g/dL Normal 12.0-16.0 [facility] Comment on above: Performed By: #### C BC #### [facility] [address] [place] [address] Dr. Wendy Kingsley IG # 0.02 10e3/ul Normal 0.00-0.03 [facility] Comment on above: Performed By: #### C BC #### [facility] [address] [place] [address] Dr. Wendy Kingsley IG % 0.4 % Normal 0.0-0.5 [facility] Comment on above: Performed By: #### C BC #### [facility] [address] [place] [address] Dr. Wendy Kingsley LYMPH # 1.8 103/ul Normal 1.2-3.8 [facility] Comment on above: Performed By: #### C BC #### [facility] [address] [place] [address] Dr. Wendy Kingsley Lymphocytes/100 WBC (Bld) 34.2 % Normal 20.5-60.0 [facility] Comment on above: Performed By: #### C BC #### [facility] [address] [place] [address] Dr. Wendy Kingsley MANUAL DIFF REQ NO Normal [facility] Comment on above: Performed By: #### C BC #### [facility] [address] [place] [address] Dr. Wendy Kingsley MCH (RBC) [Entitic mass] 29.8 pg Normal 26.7-34.0 [facility] Comment on above: Performed By: #### C BC #### [facility] [address] [place] [address] Dr. Wendy Kingsley MCHC (RBC) [Mass/Vol] 32.3 g/dL Normal 29.9-35.2 [facility] Comment on above: Performed By: #### C BC #### [facility] [address] [address] [address] Wendy Kingsley MCV (RBC) [Entitic vol] 92.1 fL Normal 81.0-99.0 [facility] Comment on above: Performed By: #### C BC #### [facility] [address] [address] [address] Wendy Kingsley MONO # 0.6 103/ul Normal 0.3-0.8 [facility] Comment on above: Performed By: #### C BC #### [facility] [address] [address] [address] Wendy Kingsley Monocytes/100 WBC (Bld) 11.7 % Normal 1.7-12.0 [facility] Comment on above: Performed By: #### C BC #### [facility] [address] [address] [address] Wendy Kingsley NEUT # 2.6 103/ul Normal 1.4-6.5 [facility] Comment on above: Performed By: #### C BC #### [facility] [address] [address] [address] Wendy Kingsley Neutrophils/100 WBC (Bld) 51.5 % Normal 43.0-75.0 [facility] Comment on above: Performed By: #### C BC #### [facility] [address] [address] [address] Wendy Kingsley Platelet mean volume (Bld) [Entitic vol] 12.4 fL Normal 9.5-13.5 [facility] Comment on above: Performed By: #### C BC #### [facility] [address] [address] [address] Wendy Kingsley PLT 144 103/ul Critically low 150-450 [facility] Comment on above: Performed By: #### C BC #### [facility] [address] [address] [address] Wendy Kingsley RBC 4.67 106/ul Normal 4.20-5.40 [facility] Comment on above: Performed By: #### C BC #### [facility] [address] [address] [address] Wendy Kingsley WBC 5.1 103/ul Normal 4.0-11.0 [facility] Comment on above: Performed By: #### C BC #### [facility] [address] [address] [address] Wendy Kingsley GLYCOHEMOGLOBIN A1Con 2020 ADA RECOMMENDATION ADA THERAPEUTIC TARGET 6.0 - 7.0 ACTION SUGGESTED > 7.0 Normal [facility] Comment on above: Performed By: #### A 1C #### [facility] [address] [place] [address] Dr. Wendy Kingsley Glucose [Mass/Vol] 108 mg/dL Normal [facility] Comment on above: Performed By: #### A 1C #### [facility] [address] [place] [address] Dr. Wendy Kingsley HbA1c (Bld) [Mass fraction] 5.4 % Normal <=6.0 [facility] Comment on above: Performed By: #### A 1C #### [facility] [address] [place] [address] Dr. Wendy Kingsley LIPID PROFILEon 04-15-2021 CHOL-HDL RATIO NORM SEE BELOW Normal [facility] Comment on above: Result Comment: 3.3 - 4.4 LOW RISK 4.4 - 7.1 AVERAGE RISK 7.1 - 11.0 MODERATE RISK >11.0 HIGH RISK Performed By: #### L IPID, BMP #### [facility] [address] [place] [address] Dr. Wendy Kingsley Cholesterol [Mass/Vol] 214 mg/dL Critically high <=200 [facility] Comment on above: Performed By: #### L IPID, BMP #### [facility] [address] [place] [address] Dr. Wendy Kingsley Cholesterol in HDL [Mass/Vol] 38 mg/dL Normal [facility] Comment on above: Performed By: #### L IPID, BMP #### [facility] [address] [place] [address] Dr. Wendy Kingsley Cholesterol in LDL [Mass/Vol] 138.8 mg/dL Normal [facility] Comment on above: Performed By: #### L IPID, BMP #### [facility] [address] [place] [address] Dr. Wendy Kingsley Cholesterol.total/Ch olesterol in HDL [Mass ratio] 5.6 {ratio} Normal [facility] Comment on above: Performed By: #### L IPID, BMP #### [facility] [address] [address] [address] Wendy Kingsley HDL NORMAL > or = 60 mg/dl - LOW CARDIOVASCULAR RISK <40 mg/dl - HIGH CARDIOVASCULAR RISK Normal [facility] Comment on above: Performed By: #### L IPID, BMP #### [facility] [address] [place] [address] Dr. Wendy Kingsley LDL CALC NORMAL SEE BELOW Normal [facility] Comment on above: Result Comment: <100 mg/dl OPTIMAL 100 - 129 mg/dl NEAR OR ABOVE OPTIMAL 130 - 159 mg/dl BORDERLINE HIGH 160 - 189 mg/dl HIGH >190 mg/dl VERY HIGH Performed By: #### L IPID, BMP #### [facility] [address] [address] [address] Wendy Kingsley Triglyceride [Mass/Vol] 186 mg/dL Critically high <=150 [facility] Comment on above: Performed By: #### L IPID, BMP #### [facility] [address] [place] [address] Dr. Wendy Kingsley VLDL CALC 37.2 mg/dL Normal [facility] Comment on above: Performed By: #### L IPID, BMP #### [facility] [address] [place] [address] Dr. Wendy Kingsley PROF CHEM 8 (BAS METB)on Anion gap [Moles/Vol] 11.2 mmol/L Normal [facility] Comment on above: Performed By: #### L IPID, BMP #### [facility] [address] [place] [address] Dr. Wendy Kingsley Calcium [Mass/Vol] 9.0 mg/dL Normal 8.4-10.2 [facility] Comment on above: Performed By: #### L IPID, BMP #### [facility] [address] [address] [address] Wendy Kingsley Chloride [Moles/Vol] 106 mmol/L Normal 98-107 [facility] Comment on above: Performed By: #### L IPID, BMP #### [facility] [address] [address] [address] Wendy Kingsley CO2 [Moles/Vol] 26.2 mmol/L Normal 22.0-30.0 [facility] Comment on above: Performed By: #### L IPID, BMP #### [facility] [address] [place] [address] Dr. Wendy Kingsley Creatinine [Mass/Vol] 0.95 mg/dL Normal 0.52-1.04 [facility] Comment on above: Performed By: #### L IPID, BMP #### [facility] [address] [place] [address] Dr. Wendy Kingsley EGFR-AF HAITIAN >60 Normal >=60 [facility] Comment on above: Performed By: #### L IPID, BMP #### [facility] [address] [place] [address] Dr. Wendy Kingsley EGFR-NON AF HAITIAN 58 mL/min/1.73m2 Critically low >=60 [facility] Comment on above: Performed By: #### L IPID, BMP #### [facility] [address] [place] [address] Dr. Wendy Kingsley Glucose [Mass/Vol] 96 mg/dL Normal 74-106 [facility] Comment on above: Performed By: #### L IPID, BMP #### [facility] [address] [address] [address] Wendy Kingsley Potassium [Moles/Vol] 4.4 mmol/L Normal 3.4-5.0 [facility] Comment on above: Performed By: #### L IPID, BMP #### [facility] [address] [place] [address] Dr. Wendy Kingsley Sodium [Moles/Vol] 139 mmol/L Normal 137-145 [facility] Comment on above: Performed By: #### L IPID, BMP #### [facility] [address] [address] [address] Wendy Kingsley Urea nitrogen [Mass/Vol] 17.0 mg/dL Normal 7.0-17.0 [facility] Comment on above: Performed By: #### L IPID, BMP #### [facility] [address] [id number] [address] Wendy Kingsley Urea nitrogen/Creatinine [Mass ratio] 17.9 mg/mg Normal [facility] Comment on above: Performed By: #### L IPID, BMP #### [facility] [address] [place] [address] Dr. Wendy Kingsley CNCOon 01-24-2019 CNCO Letter Text Normal [facility] Vital Signs Date Time Vital Sign Value Performing Clinician Facility 05-15-2023 10:15-0400 Body height 160.02 cm Silvia Morris Other [facility] Other 05-15-2023 10:15-0400 Body mass index (BMI) [Ratio] 28.55 kg/m2 Silvia Morris Other [facility] Other 05-15-2023 10:15-0400 Body temperature 98.4 [degF] Silvia Morris Other [facility] Other 05-15-2023 10:15-0400 Body weight 73.12 kg Silvia Morris Other [facility] Other 05-15-2023 10:15-0400 Diastolic blood pressure 80 mm[Hg] Silvia Morris Other [facility] Other 05-15-2023 10:15-0400 Respiratory rate 18 /min Silvia Morris Other [facility] Other 05-15-2023 10:15-0400 SaO2% (BldA) [Mass fraction] 95 % Silvia Morris Other [facility] Other 05-15-2023 10:15-0400 Systolic blood pressure 110 mm[Hg] Silvia Morris Other [facility] Other Encounters Encounter Date Encounter Type Care [...] 05-15-2023 End: 05-15-2023 ambulatory Silvia Morris Other [facility] Other Start: 05-15-2023 Office outpatient ne w 20 minutes Silvia Morris [facility] Start: 11-29-2021 End: 11-29-2021 Patient encounter procedure MD Shakira Orona [facility] Start: 04-15-2021 End: 04-16-[address] SHAKIRA ORONA Facility: Start: 11-01-2018 End: 11-02-2018 Patient encounter procedure DEFAULT PHYSICIAN Facility:[facility] Procedures Date Procedure Procedure Detail Performing Clinician Start: 11-29-2021 Screening mammograph y of bilateral breasts MD Shakira Orona Work Phone: Payers Date Payer Category Payer Private Health Insurance [id number] Self-pay 1950 Unknown [id number] 1950 Unknown [id number] 2.16.840.1.879020.3.579.2.727 1950 Unknown [id number] 2.16.840.1.163043.3.579.2.727 1950 Unknown [id number] 2.16.840.1.436864.3.579.2.727 1950 Unknown [id number] 2.16.840.1.237729.3.579.2.1259 1948 Unknown [id number] 2.16.840.1.315012.3.579.2.1258 1950 Unknown [id number] 2.16.840.1.922700.3.579.2.1259 1948 Unknown [id number] 2.16.840.1.192103.3.579.2.125 1948 Unknown [id number] 2.16.840.1.909614.3.579.2.1258 1948 Unknown [id number] 2.16.840.1.331820.3.579.2.1258 1948 Unknown [id number] 2.16.840.1.242115.3.579.2.1258 1948 Unknown [id number] 2.16.840.1.499109.3.579.2.1258 1948 Unknown [id number] 2.16.840.1.282597.3.579.2.1258 1948 Unknown [id number] 2.16.840.1.754695.3.579.2.1258 1950 Unknown [id number] 2.16.840.1.847445.3.579.2.1259 Medicare Medicare [id number] Medicare [id number] 2.1 [id number] Private Health Insurance [employer] M[employer] PFFS 1 [id number] Unknown Unknown [id number] Unknown Barbara WELLS/HANNAH [id number] Social History Date Type Detail Facility Tobacco smoking status MIIS Unknown if ever smoked [facility] Work Phone: Start: 1950 Sex Assigned At Female F [facility] Sex Assigned At Sex Assigned At Bir th [facility] [employer] Other Clinical Note 03-10-2024 Note Date & [...] risk of getting burned. Medicines ? Take lycg-aau-livpfxj and prescription medicines only as told by your health care provider. ? Ask your health care provider if the medicine prescribed to you: ? Requires you to avoid driving or using machinery. ? Can cause constipation. You may need to take actions to prevent or treat constipation, such as: ? Drink enough fluid to keep your urine pale yellow. ? Take dmcp-ijb-aclzagd or prescription medicines. ? Eat foods that [...] activities are safe for you. ? Do icefv-cp-hbqzvi exercises only as told by your health [...] right away if: (more content not included)... [facility] Evaluation note 05-15-2023 Note Date & Type [...] days. Patient reports she is leaving for [place] tomorrow and is concerned that she will be sick while she was gone. A Z-Steven was prescribed in case she needs it. Patient verbalizes understanding of this. [employer] Other Evaluation note Note Date & Type Note Facility Evaluation note No assessment information [facility] Work Phone: History general Narrative - Reported Note Date & Type Note Facility History general Narrative - Reported Type Medical History Gastritis and gastro duodenitis, unspecified, without mention of hemorrhage Medical History Abdominal pain Surgical History CHOLECYSTECTOMY Surgical History TUBAL LIGATION Hospitalization History No Hospitalization histo ry information [employer] Other Summary Purpose Family History No Family [...] and content) DATE CREATED AUTHOR 11/02/2018 [facility] DATE CREATED AUTHOR AUTHOR'S ORGANIZ ATION 01/27/2019 [facility] DATE CREATED AUTHOR AUTHOR'S ORGANIZ ATION 04/15/2021 [facility] DATE CREATED AUTHOR AUTHOR'S ORGANIZ ATION 11/22/2021 [facility] Specialist DATE CREATED AUTHOR AUTHOR'S ORGANIZ ATION 12/14/2021 [facility] DATE CREATED AUTHOR AUTHOR'S ORGANIZ ATION 03/11/2024 [facility] DATE CREATED AUTHOR AUTHOR'S ORGANIZ ATION 04/03/2024 [facility] dical Specialists [employer] Care Teams (unrecognized sec [...] BE BASED ON THE PRIMARY CLINICAL RECORDS. [facility] provides no warranty or guarantee of the accuracy or completeness of information in this document.
[2024-04-21] MEDS: DIAZEPAM 5 MG TABLET PO (06:32)
[2024-04-21] MEDS: CYCLOPENTOLATE HCL 1% OP SOL 40 DROP/2 ML BOTTLE OP ×3 (06:32→06:55)
[2024-04-21] MEDS: TROPICAMIDE 1% OP SOL 300 DROP/15 ML BOTTLE OP ×3 (06:33→06:55)
[2024-04-21] MEDS: PHENYLEPHRINE HCL 2.5% OP SOL 40 DROP/2 ML BOTTLE OP ×3 (06:33→06:55)
[2024-04-21] MEDS: BESIFLOXACIN HCL 100 DROP DROPS.SUSP OP ×3 (06:34→06:55)
[2024-04-21 06:44] VITALS: BP 140/72; PULSE 76; TEMP 36.5; O2SAT 99
[2024-04-21] MEDS: BETADINE POVIDONE-IODINE 5% OP SOL 30 ML BOTTLE OP (07:26)
[2024-04-21] MEDS: PROPARACAINE HCL 0.5% 300 DROP/15 ML BOTTLE OP (07:27)
[2024-04-21] MEDS: LIDOCAINE 2% JELLY 10 ML TOPICAL (07:27)
[2024-04-21 07:35] VITALS: BP 148/75; PULSE 58; O2SAT 98
[2024-04-21] MEDS: HYALURONATE SODIUM 16 MG/ML SYRINGE OP (07:38)
[2024-04-21] MEDS: TETRACAINE HCL 0.5% OP SOL 80 DROP/4 ML BOTTLE OP (07:39)
[2024-04-21] MEDS: LIDOCAINE HCL 1% PF 20 MG/2 ML VIAL INJ (07:39)
[2024-04-21] MEDS: PHENYLEPHRINE/KETOROLAC 1-0.3% ML VIAL 4 ML IRR (07:39)
[2024-04-21] MEDS: CEFUROXIME SODIUM 750 MG, 0.9 % SODIUM CHLORIDE 16.3 ML OP (07:40)
[2024-04-21 07:42] VITALS: BP 168/75; PULSE 61; O2SAT 99
[2024-04-21] MEDS: APRACLONIDINE HCL 0.5% SOL 100 DROP/5 ML BOTTLE OP (07:48)
[2024-04-21] MEDS: PREDNISOLONE ACETATE OP 1% SUSP 100 DROPS/5 ML 1 DROP OP (07:49)
== END 2024-04-21 08:00 | disposition home or self-care (01) ==
LOC: SURGOUT 06:15
PROVIDERS: PCP Nurse Practitioner; Visit Provider Ophthalmology
PROC: (CPT 66984; principal; 2024-04-21 07:30)
DX: H25.11 Age-related nuclear cataract, right eye (principal)
CPT/HCPCS: 66984; J0697; V2630

== ENCOUNTER 2024-05-24 14:45 | Outpatient (OUT) | payer MEDICARE, SELFPAY ==
--- OUTSIDE RECORDS SUMMARY | 2024-05-24 15:10 | XMS_ITS | CCD ---
Author Organization [facility] Care Team Providers Care Coffee Grower Name Role Phone PHYSICIAN, DEFAULT Admitting Unavailable PHYSICIAN, DEFAULT Attending Unavailable YEYO, DR ROSENBERG Attending Unavailable YEYO, DR ROSENBERG Consulting Unavailable YEYO, DR ROSENBERG Admitting Unavailable MD Shakira Orona Primary Care Provider MD Shakira Orona Referring Provider Self, Referral Attending Provider Unavailable Silvia Morris Unavailable Gwen Shelton Attending Unavailable Gwen Shelton Attending Unavailable Gwen Shelton Attending Unavailable SHAKIRA ORONA Attending Unavailable SHAKIRA ORONA Attending Unavailable SHAKIRA ORONA Attending Unavailable HEMESHAKIRA ELY Referring Unavailable HUSSEIN SCHUSTER Attending Unavailable SHAKIRA ORONA Referring Unavailable PAIGE VREA Attending Unavailable HEMESHAKIRA ELY Referring Unavailable HEMESHAKIRA [...] Penicillins (Antibiotic) Propensity to adverse reactions Unknown [facility] Other (1 source) FAVIOR Propensity to adverse reactions Unknown [facility] Other (1 source) Penicillin; Translations: [penicillin] Drug Allergy [facility] (1 source) No Known Medication Allergies; Translations: [No Known Medication Allergies] Propensity to adverse reactions (disorder) [facility] Medications Current Medications Medication Drug [...] y (more content not included)... Normal [facility] Family Medicine Office/Clini c Noteon 03-10-2024 [...] reviewed MRI results. will send referral to [facility] access orthopedics. pt is c/o 10/10 [...] 50,000 intl units (1.25 mg) oral capsule, 27750 International_Unit= 1 cap(s), Oral, qWeek, 3 refills Allergies penicillin (Swelling) Social History Tobacco Never (less than 100 in lifetime) Tobacco Use:. Never Smokeless Tobacco Use:. Cigarettes, Household tobacco concerns: No. Yes, 03/10/2024 Family History Primary malignant neoplasm of lung: Father. Prostate cancer: Father. Immunizations Vaccine Date Status Comments SARS-CoV-2 (COVID-19) mRNAMUL.ORD![id number] 05/29/2022 Recorded 2024-02-17: TPV70 SARS-CoV-2 (COVID-19) mRNA BNT-162b2 vax 06/11/2021 Recorded 2024-02-17: TPV70 SARS-CoV-2 (COVID-19) Ad26 vaccine 09/22/2020 Recorded hepatitis A-hepatitis B vaccine 04/18/2008 Recorded hepatitis A-hepatitis B vaccine 11/18/2007 Recorded typhoid vaccine, inactivated 10/14/2007 Recorded diphtheria/pertussis , acel/tetanus adult 10/14/2007 Recorded poliovirus vaccine, inactivated 10/14/2007 Recorded hepatitis A-hepatitis B vaccine 10/14/2007 Recorded Normal [facility] Comment on above: Result Comment: Elec [...] Associated Symptoms:_ none Doing MRI tomorrow @ [facility] Did 4 sessions of PT and made pain worse. Last one was done was February 07 Xray done January 24 @ [facility] showed calcium and arthritis She can not [...] an eye out for the results from [facility]. she has follow up scheduled on [...] 50,000 intl units (1.25 mg) oral capsule, 36920 International_Unit= 1 cap(s), Oral, qWeek, 3 refills Allergies penicillin (Swelling) Social History Tobacco Never (less than 100 in lifetime) Tobacco Use:. Never Smokeless Tobacco Use:. Cigarettes, 02/18/2024 Family History Primary malignant neoplasm of lung: Father. Prostate cancer: Father. Immunizations Vaccine Date Status Comments SARS-CoV-2 (COVID-19) mRNAMUL.ORD![id number] 05/29/2022 Recorded 2024-02-17: TPV70 SARS-CoV-2 (COVID-19) mRNA BNT-162b2 vax 06/11/2021 Recorded 2024-02-17: TPV70 SARS-CoV-2 (COVID-19) Ad26 vaccine 09/22/2020 Recorded hepatitis A-hepatitis B vaccine 04/18/2008 Recorded hepatitis A-hepatitis B vaccine 11/18/2007 Recorded typhoid vaccine, inactivated 10/14/2007 Recorded diphtheria/pertussis , acel/tetanus adult 10/14/2007 Recorded poliovirus vaccine, inactivated 10/14/2007 Recorded hepatitis A-hepatitis B vaccine 10/14/[address] [facility] Comment on above: Result Comment: Elec tronically Signed By: Gwen Coknlin\.br\Date and Time Signed: 02/18/24 10:27 EDT Ambulatory [...] 10:00 AM EDT With: Gwen Conklin Where: [facility] Family Medicine [facility] Ambulatory Visit Summary Ambulatory Visit Summary ANA [...] for choosing us for your care. 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 Normal [facility] Comment on above: Result Comment: Elec [...] (COVID-19) RNA MAURICE+probe Ql (Unsp spec) Negative [facility] Other COVID/FLU RT-PCR Negative [facility] Other MM screening mammo BI w/CADo n 11-29-2021 MM screening mammo BI w/CAD [facility] [address] [place] [id number] Mammography Report Signed Patient: Ana Rosa Tucker MR#: [id number] : 1950 Acct:[id number] Age/Sex: 71 / F ADM Date: 11/29/21 Loc: [place] Room: Type: [facility] Attending Dr: Referral Self Ordering Provider: [...] Elizabeth Dill M.D.11/29/2021 2:44 PM Dictation Location: [facility] Transcribed By: ROLAND 11/29/21 1444 Dictated By: Elizabeth Dill MD 11/29/21 1434 Signed By: 11/29/21 1444 Normal [facility] Comprehensive Metabolic Pane felicia 11-21-2021 Albumin [Mass/Vol] 4.3 g/dL Normal 3.6-5.1 Linsey gonzalez [place] [employer] Supervisor Comment on above: Performed By: #### L IPD, CMP #### [facility] [address], [place] [id number] Albumin/Globulin [Mass ratio] 2.0 {ratio} Normal 1.0-2.5 [facility] Specialist Comment on above: Performed By: #### L IPD, CMP #### [facility] [address], [place] [id number] ALP [Catalytic activity/Vol] 95 U/L Normal 35-119 [facility] Press Room Supervisor Comment on above: Performed By: #### L IPD, CMP #### [facility] [address], [place] [id number] ALT [Catalytic activity/Vol] 21 U/L Normal 6-33 [facility] Comment on above: Result Comment: 06/19 Female reference range changed. Performed By: #### L IPD, CMP #### [facility] [address], [place] [id number] Anion gap [Moles/Vol] 12 mmol/L Normal 12-20 [facility] Special[facility] Comment on above: Result Comment: Effe ctive 07/25/2019 reference range changed. Performed By: #### L IPD, CMP #### [facility] [address], [place] [id number] AST [Catalytic activity/Vol] 21 U/L Normal 9-34 [facility] Specialist Comment on above: Performed By: #### L IPD, CMP #### [facility] [address], [place] [id number] Bilirubin [Mass/Vol] 0.67 mg/dL Normal 0.30-1.20 [facility] Comment on above: Performed By: #### L IPD, CMP #### [facility] [address], [place] [id number] BUN/CREA 18 Ratio Normal 6-22 [facility] Specialist Comment on above: Performed By: #### L IPD, CMP #### [facility] [address], [place] [id number] Calcium [Mass/Vol] 9.6 mg/dL Normal 8.6-10.2 Linsey gonzalez [place] [employer] Supervisor Comment on above: Performed By: #### L IPD, CMP #### [facility] [address], [place] [id number] Chloride [Moles/Vol] 107 mmol/L Normal 98-107 [facility] Comment on above: Performed By: #### L IPD, CMP #### [facility] [address], [place] [id number] CO2 [Moles/Vol] 26 mmol/L Normal 20-31 [facility] Comment on above: Performed By: #### L IPD, CMP #### [facility] [address], [place] [id number] Creatinine [Mass/Vol] 0.9 mg/dL Normal 0.6-1.4 [facility] Specialist Comment on above: Performed By: #### L IPD, CMP #### [facility] [address], [place] [id number] eGFRAA 78 mL/min/1.73m2 Normal >60 [facility] Specialist Comment on above: Performed By: #### L IPD, CMP #### [facility] [address], [place] [id number] eGFRNAA 65 mL/min/1.73m2 Normal >60 [facility] Specialist Comment on above: Performed By: #### L IPD, CMP #### [facility] [address], [place] [id number] Globulin (S) [Mass/Vol] 2.1 g/dL Normal 1.9-3.7 [facility] Comment on above: Performed By: #### L IPD, CMP #### [facility] [address], [place] [id number] Glucose [Mass/Vol] 112 mg/dL High 65-99 [facility] Comment on above: Result Comment: For FASTING Glucose --- ADA reference ranges: Normal 65-99 mg/dl Prediabetes 100-125 Diabetes >/= 126 Performed By: #### L IPD, CMP #### [facility] [address], [place] [id number] Potassium [Moles/Vol] 4.6 mmol/L Normal 3.5-5.5 [facility] Specialist Comment on above: Performed By: #### L IPD, CMP #### [facility] [address], [place] [id number] Protein [Mass/Vol] 6.4 g/dL Normal 6.1-8.1 [facility] Press Room Supervisor Comment on above: Performed By: #### L IPD, CMP #### [facility] [address], [place] [id number] Sodium [Moles/Vol] 141 mmol/L Normal 135-146 [facility] Specialist Comment on above: Performed By: #### L IPD, CMP #### [facility] [address], [place] [id number] Urea nitrogen [Mass/Vol] 16 mg/dL Normal 7-25 [facility] Specialist Comment on above: Performed By: #### L IPD, CMP #### [facility] [address], [place] [id number] Lipid Panelon 11-21-2021 Cholesterol [Mass/Vol] 236 mg/dL High 125-200 [facility] Specialist Comment on above: Result Comment: Low risk < 200mg/dL Borderline risk 201-239 mg/dl High risk > or equal to 240 Performed By: #### L IPD, CMP #### [facility] [address], [place] [id number] Cholesterol in HDL [Mass/Vol] 40 mg/dL Low >40 [facility] Special[facility] Comment on above: Result Comment: High Cardiovascular Risk HDL <40 mg/dL Low Cardiovascular Risk HDL > or equal to 60 mg/dl Performed By: #### L IPD, CMP #### [facility] [address], [place] [id number] Cholesterol in LDL [Mass/Vol] 157 mg/dL Normal [facility] Comment on above: Result Comment: LDL ATP III CLASSIFICATION LDL less than 100 mg/dl Optimal LDL 100-129 mg/dl Near or above optimal LDL 130-159 Borderline high LDL 160-189 High LDL greater than 189 mg/dl Very High Performed By: #### L IPD, CMP #### [facility] [address], [place] [id number] Cholesterol in VLDL [Mass/Vol] 39 mg/dL Normal [facility] Special[facility] Comment on above: Performed By: #### L IPD, CMP #### [facility] [address], [place] [id number] Cholesterol.total/Ch olesterol in HDL [Mass ratio] 6 {ratio} Normal [facility] Press Room Supervisor Comment on above: Performed By: #### L IPD, CMP #### [facility] [address], [place] [id number] Triglyceride [Mass/Vol] 194 mg/dL High 30-150 [facility] Press Room Supervisor Comment on above: Result Comment: TRIG ATPIII CLASSIFICATIONS TRIG less than 150 mg/dl Normal TRIG 150-199 mg/dl Borderline High TRIG 200-500 mg/dl High TRIG greather than 500 mg/dl Very High Performed By: #### L IPD, CMP #### [facility] [address], [place] [id number] CBC AUTO DIFFon 04-15-2021 BASO # 0.0 103/ul Normal 0.0-0.1 [facility] Comment on above: Performed By: #### C BC #### [facility] [address] [place] [address] Dr. Wendy Kingsley Basophils/100 WBC (Bld) 0.6 % Normal 0.2-2.0 [facility] Comment on above: Performed By: #### C BC #### [facility] [address] [place] [address] Dr. Wendy Kingsley EO # 0.1 103/ul Normal 0.0-0.7 [facility] Comment on above: Performed By: #### C BC #### [facility] [address] [place] [address] Dr. Wendy Kingsley Eosinophils/100 WBC (Bld) 1.6 % Normal 0.9-7.0 [facility] Comment on above: Performed By: #### C BC #### [facility] [address] [place] [address] Dr. Wendy Kingsley Erythrocyte distribution width (RBC) [Ratio] 13.0 % Normal 11.0-15.0 [facility] Comment on above: Performed By: #### C BC #### [facility] [address] [place] [address] Dr. Wendy Kingsley Hematocrit (Bld) [Volume fraction] 43.0 % Normal 36.0-48.0 [facility] Comment on above: Performed By: #### C BC #### [facility] [address] [place] [address] Dr. Wendy Kingsley Hemoglobin (Bld) [Mass/Vol] 13.9 g/dL Normal 12.0-16.0 [facility] Comment on above: Performed By: #### C BC #### [facility] [address] [place] [address] Dr. Wendy Kingsley IG # 0.02 10e3/ul Normal 0.00-0.03 [facility] Comment on above: Performed By: #### C BC #### [facility] [address] [place] [address] Dr. Wendy Kingsley IG % 0.4 % Normal 0.0-0.5 [facility] Comment on above: Performed By: #### C BC #### [facility] [address] [place] [address] Dr. Wendy Kingsley LYMPH # 1.8 103/ul Normal 1.2-3.8 [facility] Comment on above: Performed By: #### C BC #### [facility] [address] [place] [address] Dr. Wendy Kingsley Lymphocytes/100 WBC (Bld) 34.2 % Normal 20.5-60.0 [facility] Comment on above: Performed By: #### C BC #### [facility] [address] [place] [address] Dr. Wendy Kingsley MANUAL DIFF REQ NO Normal [facility] Comment on above: Performed By: #### C BC #### [facility] [address] [place] [address] Dr. Wendy Kingsley MCH (RBC) [Entitic mass] 29.8 pg Normal 26.7-34.0 [facility] Comment on above: Performed By: #### C BC #### [facility] [address] [place] [address] Dr. Wendy Kingsley MCHC (RBC) [Mass/Vol] 32.3 g/dL Normal 29.9-35.2 [facility] Comment on above: Performed By: #### C BC #### [facility] [address] [address] [address] Wendy Kingsley MCV (RBC) [Entitic vol] 92.1 fL Normal 81.0-99.0 [facility] Comment on above: Performed By: #### C BC #### [facility] [address] [address] [address] Wendy Kingsley MONO # 0.6 103/ul Normal 0.3-0.8 [facility] Comment on above: Performed By: #### C BC #### [facility] [address] [address] [address] Wendy Kingsley Monocytes/100 WBC (Bld) 11.7 % Normal 1.7-12.0 [facility] Comment on above: Performed By: #### C BC #### [facility] [address] [address] [address] Wendy Kingsley NEUT # 2.6 103/ul Normal 1.4-6.5 [facility] Comment on above: Performed By: #### C BC #### [facility] [address] [address] [address] Wendy Kingsley Neutrophils/100 WBC (Bld) 51.5 % Normal 43.0-75.0 [facility] Comment on above: Performed By: #### C BC #### [facility] [address] [address] [address] Wendy Kingsley Platelet mean volume (Bld) [Entitic vol] 12.4 fL Normal 9.5-13.5 [facility] Comment on above: Performed By: #### C BC #### [facility] [address] [address] [address] Wendy Kingsley PLT 144 103/ul Critically low 150-450 [facility] Comment on above: Performed By: #### C BC #### [facility] [address] [address] [address] Wendy Kingsley RBC 4.67 106/ul Normal 4.20-5.40 [facility] Comment on above: Performed By: #### C BC #### [facility] [address] [address] [address] Wendy Kingsley WBC 5.1 103/ul Normal 4.0-11.0 [facility] Comment on above: Performed By: #### C BC #### [facility] [address] [address] [address] Wendy Kingsley GLYCOHEMOGLOBIN A1Con 2020 ADA RECOMMENDATION ADA THERAPEUTIC TARGET 6.0 - 7.0 ACTION SUGGESTED > 7.0 Normal [facility] Comment on above: Performed By: #### A 1C #### [facility] [address] [place] [address] Dr. Wendy Kingsley Glucose [Mass/Vol] 108 mg/dL Normal [facility] Comment on above: Performed By: #### A 1C #### [facility] [address] [place] [address] Dr. Wendy Kingsley HbA1c (Bld) [Mass fraction] 5.4 % Normal <=6.0 [facility] Comment on above: Performed By: #### A 1C #### [facility] [address] [place] [address] Dr. Wendy Kingsley LIPID PROFILEon 04-15-2021 CHOL-HDL RATIO NORM SEE BELOW Normal [facility] Comment on above: Result Comment: 3.3 - 4.4 LOW RISK 4.4 - 7.1 AVERAGE RISK 7.1 - 11.0 MODERATE RISK >11.0 HIGH RISK Performed By: #### L IPID, BMP #### [facility] [address] [place] [address] Dr. Wendy Kingsley Cholesterol [Mass/Vol] 214 mg/dL Critically high <=200 [facility] Comment on above: Performed By: #### L IPID, BMP #### [facility] [address] [place] [address] Dr. Wendy Kingsley Cholesterol in HDL [Mass/Vol] 38 mg/dL Normal [facility] Comment on above: Performed By: #### L IPID, BMP #### [facility] [address] [place] [address] Dr. Wendy Kingsley Cholesterol in LDL [Mass/Vol] 138.8 mg/dL Normal [facility] Comment on above: Performed By: #### L IPID, BMP #### [facility] [address] [place] [address] Dr. Wendy Kingsley Cholesterol.total/Ch olesterol in HDL [Mass ratio] 5.6 {ratio} Normal [facility] Comment on above: Performed By: #### L IPID, BMP #### [facility] [address] [address] [address] Wendy Kingsley HDL NORMAL > or = 60 mg/dl - LOW CARDIOVASCULAR RISK <40 mg/dl - HIGH CARDIOVASCULAR RISK Normal [facility] Comment on above: Performed By: #### L IPID, BMP #### [facility] [address] [place] [address] Dr. Wendy Kingsley LDL CALC NORMAL SEE BELOW Normal [facility] Comment on above: Result Comment: <100 mg/dl OPTIMAL 100 - 129 mg/dl NEAR OR ABOVE OPTIMAL 130 - 159 mg/dl BORDERLINE HIGH 160 - 189 mg/dl HIGH >190 mg/dl VERY HIGH Performed By: #### L IPID, BMP #### [facility] [address] [address] [address] Wendy Kingsley Triglyceride [Mass/Vol] 186 mg/dL Critically high <=150 [facility] Comment on above: Performed By: #### L IPID, BMP #### [facility] [address] [place] [address] Dr. Wendy Kingsley VLDL CALC 37.2 mg/dL Normal [facility] Comment on above: Performed By: #### L IPID, BMP #### [facility] [address] [place] [address] Dr. Wendy Kingsley PROF CHEM 8 (BAS METB)on Anion gap [Moles/Vol] 11.2 mmol/L Normal [facility] Comment on above: Performed By: #### L IPID, BMP #### [facility] [address] [place] [address] Dr. Wendy Kingsley Calcium [Mass/Vol] 9.0 mg/dL Normal 8.4-10.2 [facility] Comment on above: Performed By: #### L IPID, BMP #### [facility] [address] [address] [address] Wendy Kingsley Chloride [Moles/Vol] 106 mmol/L Normal 98-107 [facility] Comment on above: Performed By: #### L IPID, BMP #### [facility] [address] [address] [address] Wendy Kingsley CO2 [Moles/Vol] 26.2 mmol/L Normal 22.0-30.0 [facility] Comment on above: Performed By: #### L IPID, BMP #### [facility] [address] [place] [address] Dr. Wendy Kingsley Creatinine [Mass/Vol] 0.95 mg/dL Normal 0.52-1.04 [facility] Comment on above: Performed By: #### L IPID, BMP #### [facility] [address] [place] [address] Dr. Wendy Kingsley EGFR-AF LITHUANIAN >60 Normal >=60 [facility] Comment on above: Performed By: #### L IPID, BMP #### [facility] [address] [place] [address] Dr. Wendy Kingsley EGFR-NON AF LITHUANIAN 58 mL/min/1.73m2 Critically low >=60 [facility] Comment on above: Performed By: #### L IPID, BMP #### [facility] [address] [place] [address] Dr. Wendy Kingsley Glucose [Mass/Vol] 96 mg/dL Normal 74-106 [facility] Comment on above: Performed By: #### L IPID, BMP #### [facility] [address] [address] [address] Wendy Kingsley Potassium [Moles/Vol] 4.4 mmol/L Normal 3.4-5.0 [facility] Comment on above: Performed By: #### L IPID, BMP #### [facility] [address] [place] [address] Dr. Wendy Kingsley Sodium [Moles/Vol] 139 mmol/L Normal 137-145 [facility] Comment on above: Performed By: #### L IPID, BMP #### [facility] [address] [address] [address] Wendy Kingsley Urea nitrogen [Mass/Vol] 17.0 mg/dL Normal 7.0-17.0 [facility] Comment on above: Performed By: #### L IPID, BMP #### [facility] [address] [id number] [address] Wendy Kingsley Urea nitrogen/Creatinine [Mass ratio] 17.9 mg/mg Normal [facility] Comment on above: Performed By: #### L IPID, BMP #### [facility] [address] [place] [address] Dr. Wendy Kingsley CNCOon 01-24-2019 CNCO Letter Text Normal [facility] Vital Signs Date Time Vital Sign Value Performing Clinician Facility 05-15-2023 10:15-0400 Body height 160.02 cm Silvia Morris Other [facility] 05-15-2023 10:15-0400 Body mass index (BMI) [Ratio] 28.55 kg/m2 Silvia Morris Other [facility] 05-15-2023 10:15-0400 Body temperature 98.4 [degF] Silvia Morris Other [facility] 05-15-2023 10:15-0400 Body weight 73.12 kg Silvia Morris Other [facility] Other 05-15-2023 10:15-0400 Diastolic blood pressure 80 mm[Hg] Silvia Morris Other [facility] Other 05-15-2023 10:15-0400 Respiratory rate 18 /min Silvia Morris Other [facility] Other 05-15-2023 10:15-0400 SaO2% (BldA) [Mass fraction] 95 % Silvia Morris Other [facility] 05-15-2023 10:15-0400 Systolic blood pressure 110 mm[Hg] Silvia Morris Other [facility] Other Encounters Encounter Date Encounter Type Care [...] 05-15-2023 End: 05-15-2023 ambulatory Silvia Morris Other [facility] Other Start: 05-15-2023 Office outpatient ne w 20 minutes Silvia Morris [facility] Start: 11-29-2021 End: 11-29-2021 Patient encounter procedure MD Shakira Orona [facility] Phone[facility] Start: 04-15-2021 End: 04-16-[address] SHAKIRA ORONA Facility: Start: 11-01-2018 End: 11-02-2018 Patient encounter procedure DEFAULT PHYSICIAN Facility:[facility] Procedures Date Procedure Procedure Detail Performing Clinician Start: 11-29-2021 Screening mammograph y of bilateral breasts MD Shakira Orona Work Phone: Payers Date Payer Category Payer Private Health Insurance [id number] 1961 Self-pay 1950 Unknown [id number] 1950 Unknown [id number] 2.16.840.1.229107.3.579.2.727 1950 Unknown [id number] 2.16.840.1.863794.3.579.2.727 1950 Unknown [id number] 2.16.840.1.736394.3.579.2.727 1950 Unknown [id number] 2.16.840.1.310067.3.579.2.1259 1950 Unknown [id number] 2.16.840.1.121365.3.579.2.1258 1950 Unknown [id number] 2.16.840.1.325743.3.579.2.1259 1948 Unknown [id number] 2.16.840.1.218087.3.579.2.125 1950 Unknown [id number] 2.16.840.1.132308.3.579.2.1258 1948 Unknown [id number] 2.16.840.1.394563.3.579.2.1258 1948 Unknown [id number] 2.16.840.1.067335.3.579.2.1258 1948 Unknown [id number] 2.16.840.1.009258.3.579.2.1258 1948 Unknown [id number] 2.16.840.1.888987.3.579.2.1258 1948 Unknown [id number] 2.16.840.1.739276.3.579.2.1258 1950 Unknown [id number] 2.16.840.1.703452.3.579.2.1259 Medicare Medicare [id number] Medicare [id number] 2.1 [id number] Private Health Insurance [employer] MCR PFFS 1 [id number] Unknown Unknown [id number] 2.16.840.1.524914.3.579.2.593 Unknown Barbara WELLS/HANNAH [id number] Social History Date Type Detail Facility Tobacco smoking status IAIS Unknown if ever smoked [facility] Work Phone: Start: 1950 Sex Assigned At Female F [facility] Sex Assigned At Sex Assigned [facility] [employer] Other Clinical Note 03-10-2024 Note Date & [...] risk of getting burned. Medicines ? Take syue-lyx-ninmqqc and prescription medicines only as told by your health care provider. ? Ask your health care provider if the medicine prescribed to you: ? Requires you to avoid driving or using machinery. ? Can cause constipation. You may need to take actions to prevent or treat constipation, such as: ? Drink enough fluid to keep your urine pale yellow. ? Take quwm-rga-kgnunnx or prescription medicines. ? Eat foods that [...] activities are safe for you. ? Do uwsui-ef-ntnoex exercises only as told by your health [...] right away if: (more content not included)... [facility] Evaluation note 05-15-2023 Note Date & [...] needs it. Patient verbalizes understanding of this. [employer] Other Evaluation note Note Date & Type Note Facility Evaluation note No assessment information [facility] Work Phone: History general Narrative - Reported Note Date & Type Note Facility History general Narrative - Reported Type Medical History Gastritis and gastro duodenitis, unspecified, without mention of hemorrhage Medical History Abdominal pain Surgical History CHOLECYSTECTOMY Surgical History TUBAL LIGATION Hospitalization History No Hospitalization histo ry information [employer] Other Summary Purpose Family History No Family [...] and content) DATE CREATED AUTHOR 11/02/2018 [facility] DATE CREATED AUTHOR AUTHOR'S ORGANIZ ATION 01/27/2019 [facility] DATE CREATED AUTHOR AUTHOR'S ORGANIZ ATION 04/15/2021 [facility] DATE CREATED AUTHOR AUTHOR'S ORGANIZ ATION 11/22/2021 [facility] DATE CREATED AUTHOR AUTHOR'S ORGANIZ ATION 12/14/2021 [facility] DATE CREATED AUTHOR AUTHOR'S ORGANIZ ATION 03/11/2024 [facility] DATE CREATED AUTHOR AUTHOR'S ORGANIZ ATION 04/03/2024 [facility] EPIC Care Teams (unrecognized sec [...] BE BASED ON THE PRIMARY CLINICAL RECORDS. [employer] provides no warranty or guarantee of the accuracy or completeness of information in this document.
== END 2024-05-24 14:46 | disposition home or self-care (01) ==
LOC: PST 14:45
PROVIDERS: PCP Nurse Practitioner; Visit Provider Ophthalmology
DX: Z01.818 Encounter for other preprocedural examination (principal); H25.12 Age-related nuclear cataract, left eye

== ENCOUNTER 2024-05-26 06:15 | Day surgery (SDC) | payer MEDICARE, SELFPAY ==
--- NOTE | 2024-05-26 | OP_ITS ---
OPERATION DATE: 05/26/2024 SURGEON: Lele Hollingsworth D.O. PREOPERATIVE DIAGNOSIS: Nuclear sclerotic cataract left eye POSTOPERATIVE DIAGNOSIS: Nuclear sclerotic cataract left eye. PROCEDURE NAME: Cataract extraction with intraocular lens placement of the left eye. ANESTHESIA: Topical ESTIMATED BLOOD LOSS: Zero. COMPLICATIONS: None. PROCEDURE: The patient was brought to the Operating Room in supine position. After proper identification, the left eye was prepped and draped in a sterile ophthalmic fashion. A paracentesis was created at the 5 o'clock position. Approximately 1 cc of unpreserved Xylocaine was injected into the anterior chamber followed by Amvisc Plus. Using a 2.6 mm Keratome blade, a clear corneal incision was created at the 2 o'clock limbus. A cystotome was then used to begin a curvilinear capsulorrhexis that was continued for 360 degrees with the Utrata forceps. BSS on a 26 gauge cannula was injected beneath the anterior capsule to hydrodissect as well as hydrodelineate the lens. After ensuring mobility, phacoemulsification was performed in a uijgyjp-xkk-nkclfh-type fashion. After all nuclear material had been removed from the eye, IA was introduced and all residual cortical material was cleaned up. Additional Amvisc Plus was injected into the posterior bag and a lens model MX60, 22.0 diopters was injected and dialed into position. After ensuring centration, IA was re- introduced into the anterior chamber and all residual Amvisc Plus was removed from the eye. BSS on a 30 gauge cannula was injected into the stroma of both the clear corneal incision as well as paracentesis to hydrate the wounds. Additional BSS was injected into the anterior chamber to pressurize the eye at approximately 20 to 22 mmHg by finger tension. 0.1 cc of antibiotic was injected into the anterior chamber, and Weck-Britney sponges were used to check the wounds to be watertight. One drop of apraclonidine and one drop of prednisolone acetate were placed into the eye and a shield was placed over top. The patient was sent to the postoperative area in satisfactory condition to follow up the following day for postoperative care. VAMSHI
--- NOTE | 2024-05-26 06:15 | HP_ITS ---
PREOPERATIVE HISTORY AND PHYSICAL ? Date:? 05/26/2024 ? HISTORY:? The patient is a 74-year-old white female with complaints of declining vision out of her left eye.? She states that this has been ongoing for approximately 1-2 years.? Gradually worsening over that time frame.? She stating having difficulty at night time while driving with the headlights creating halos and glare. ?She also states having difficulty seeing distance like road signs and television. ? PAST OCULAR HISTORY / PAST MEDICAL HISTORY / SOCIAL HISTORY / MEDICATIONS / ALLERGIES TO MEDICATIONS / REVIEW OF SYSTEMS / PHYSICAL EXAM:? Unchanged from previously dictated. ? ASSESSMENT / PLAN:? Visually significant cataract left eye.? After risks, benefits, alternatives, as well as expectations were delivered to the patient, she elected to go forward with cataract removal.? She understands the risks include but not limited to infection, bleeding, loss of vision, loss of the eye itself.? Secondly, she understands that postoperatively she is likely to require spectacle correction for her best visual acuity.? Finally, a complete ophthalmic exam was performed.? There is not determined to be any other source of visual decline other than that of the cataract.? After understanding all the risks as well as expectations, she elected to go forward with procedure as listed above and will be doing so in the near future. VAMSHI
--- OUTSIDE RECORDS SUMMARY | 2024-05-26 06:18 | XMS_ITS | CCD ---
Author Organization [facility] Care Team Providers Care Fur Blender Name Role Phone PHYSICIAN, DEFAULT Admitting Unavailable PHYSICIAN, DEFAULT Attending Unavailable YEYO, DR ROSENBERG Attending Unavailable YEYO, DR ROSENBERG Consulting Unavailable YEYO, DR ROSENBERG Admitting Unavailable MD Shakira Orona Primary Care Provider MD Shakira Orona Referring Provider [phone] Self, Referral Attending Provider Unavailable Silvia Morris [...] Penicillins (Antibiotic) Propensity to adverse reactions Unknown [facility] Other (1 source) FAVIOR Propensity to adverse reactions Unknown [facility] Other (1 source) Penicillin; Translations: [penicillin] Drug Allergy [facility] Repository (1 source) No Known Medication Allergies; Translations: [No Known Medication Allergies] Propensity to adverse reactions (disorder) [facility] Repository Medications Current Medications Medication Drug [...] y (more content not included)... Normal [facility] Family Medicine Office/Clini c Noteon 03-10-2024 Family [...] reviewed MRI results. will send referral to [facility] access orthopedics. pt is c/o 10/10 [...] 50,000 intl units (1.25 mg) oral capsule, 53806 International_Unit= 1 cap(s), Oral, qWeek, 3 refills Allergies penicillin (Swelling) Social History Tobacco Never (less than 100 in lifetime) Tobacco Use:. Never Smokeless Tobacco Use:. Cigarettes, Household tobacco concerns: No. Yes, 03/10/2024 Family History Primary malignant neoplasm of lung: Father. Prostate cancer: Father. Immunizations Vaccine Date Status Comments SARS-CoV-2 (COVID-19) mRNAMUL.ORD![id number] 05/29/2022 Recorded 2024-02-17: TPV70 SARS-CoV-2 (COVID-19) mRNA BNT-162b2 vax 06/11/2021 Recorded 2024-02-17: TPV70 SARS-CoV-2 (COVID-19) Ad26 vaccine 09/22/2020 Recorded hepatitis A-hepatitis B vaccine 04/18/2008 Recorded hepatitis A-hepatitis B vaccine 11/18/2007 Recorded typhoid vaccine, inactivated 10/14/2007 Recorded diphtheria/pertussis , acel/tetanus adult 10/14/2007 Recorded poliovirus vaccine, inactivated 10/14/2007 Recorded hepatitis A-hepatitis B vaccine 10/14/2007 Recorded Normal [facility] Comment on above: Result Comment: Elec tronically [...] Associated Symptoms:_ none Doing MRI tomorrow @ [facility] Did 4 sessions of PT and made pain worse. Last one was done was February 07 Xray done January 24 @ [place] showed calcium and arthritis She can not [...] an eye out for the results from [facility]. she has follow up scheduled on . [...] 50,000 intl units (1.25 mg) oral capsule, 87810 International_Unit= 1 cap(s), Oral, qWeek, 3 refills Allergies penicillin (Swelling) Social History Tobacco Never (less than 100 in lifetime) Tobacco Use:. Never Smokeless Tobacco Use:. Cigarettes, 02/18/2024 Family History Primary malignant neoplasm of lung: Father. Prostate cancer: Father. Immunizations Vaccine Date Status Comments SARS-CoV-2 (COVID-19) mRNAMUL.ORD![id number] 05/29/2022 Recorded 2024-02-17: TPV70 SARS-CoV-2 (COVID-19) mRNA BNT-162b2 vax 06/11/2021 Recorded 2024-02-17: TPV70 SARS-CoV-2 (COVID-19) Ad26 vaccine 09/22/2020 Recorded hepatitis A-hepatitis B vaccine 04/18/2008 Recorded hepatitis A-hepatitis B vaccine 11/18/2007 Recorded typhoid vaccine, inactivated 10/14/2007 Recorded diphtheria/pertussis , acel/tetanus adult 10/14/2007 Recorded poliovirus vaccine, inactivated 10/14/2007 Recorded hepatitis A-hepatitis B vaccine 10/14/2007 Recorded [facility] Comment on above: Result Comment: Elec tronically [...] 10:00 AM EDT With: Gwen Conklin Where: [facility] Family Medicine [facility] Ambulatory Visit Summary Ambulatory Visit Summary [...] for choosing us for your care. Normal [facility] Family Medicine Office/Clini c Noteon 01-28-2024 Family Medicine Office/Clinic Note Family Medicine Office/Clinic Note HPI Staff Ana Rosa is a 74 year old female presenting to establish care Establish Care: History: Any previous diagnosis: Skin cancer, Hypertention History of seeing any specialist: [employer] ( Dr. Ferreira) When was your last [...] 9:24:00 E (more content not included)... Normal [facility] Comment on above: Result Comment: Elec [...] (COVID-19) RNA MAURICE+probe Ql (Unsp spec) Negative [facility] Other COVID/FLU RT-PCR Negative [employer] Other MM screening mammo BI w/CADo n 11-29-2021 MM screening mammo BI w/CAD [facility] [place] [address] [place] [id number] Mammography Report Signed Patient: Ana Rosa Tucker MR#: [id number] 62 : 1950 Acct:[id number] Age/Sex: 71 / F ADM Date: 11/29/21 Loc: [place] Room: Type: [facility] Attending Dr: Referral Self Ordering Provider: [...] the next mammogram. Impression dictated by: Elizabeth Dlil M.D.11/29/2021 2:44 PM Dictation Location: [facility] Transcribed By: ROLAND 11/29/21 1444 Dictated By: Elizabeth Dill MD 11/29/21 1434 Signed By: 11/29/21 1444 Normal [facility] Comprehensive Metabolic Pane felicia 11-21-2021 Albumin [Mass/Vol] 4.3 g/dL Normal 3.6-5.1 Linsey gonzalez [place] [employer] Comment on above: Performed By: #### L IPD, CMP #### [facility] [address], [place] [id number] Albumin/Globulin [Mass ratio] 2.0 {ratio} Normal 1.0-2.5 [facility] Special[facility] Comment on above: Performed By: #### L IPD, CMP #### [facility] [address], [place] [id number] ALP [Catalytic activity/Vol] 95 U/L Normal 35-119 [facility] [employer] Comment on above: Performed By: #### L IPD, CMP #### [facility] [address], [place] [id number] ALT [Catalytic activity/Vol] 21 U/L Normal 6-33 [facility] Comment on above: Result Comment: 06/19 Female reference range changed. Performed By: #### L IPD, CMP #### [facility] [address], [place] [id number] Anion gap [Moles/Vol] 12 mmol/L Normal 12-20 [facility] Comment on above: Result Comment: Effe ctive 07/25/2019 reference range changed. Performed By: #### L IPD, CMP #### [facility] [address], [place] [id number] AST [Catalytic activity/Vol] 21 U/L Normal 9-34 [facility] Comment on above: Performed By: #### L IPD, CMP #### [facility] [address], [place] [id number] Bilirubin [Mass/Vol] 0.67 mg/dL Normal 0.30-1.20 [facility] Comment on above: Performed By: #### L IPD, CMP #### [facility] [address], [place] [id number] BUN/CREA 18 Ratio Normal 6-22 [facility] Comment on above: Performed By: #### L IPD, CMP #### [facility] [address], [place] [id number] Calcium [Mass/Vol] 9.6 mg/dL Normal 8.6-10.2 Linsey gonzalez [place] [employer] Comment on above: Performed By: #### L IPD, CMP #### [facility] [address], [place] [id number] Chloride [Moles/Vol] 107 mmol/L Normal 98-107 [facility] Comment on above: Performed By: #### L IPD, CMP #### [facility] [address], [place] [id number] CO2 [Moles/Vol] 26 mmol/L Normal 20-31 [facility] Comment on above: Performed By: #### L IPD, CMP #### [facility] [address], [place] [id number] Creatinine [Mass/Vol] 0.9 mg/dL Normal 0.6-1.4 [facility] Comment on above: Performed By: #### L IPD, CMP #### [facility] [address], [place] [id number] eGFRAA 78 mL/min/1.73m2 Normal >60 [facility] Comment on above: Performed By: #### L IPD, CMP #### [facility] [address], [place] [id number] eGFRNAA 65 mL/min/1.73m2 Normal >60 [facility] Comment on above: Performed By: #### L IPD, CMP #### [facility] [address], [place] [id number] Globulin (S) [Mass/Vol] 2.1 g/dL Normal 1.9-3.7 [facility] Comment on above: Performed By: #### L IPD, CMP #### [facility] [address], [place] [id number] Glucose [Mass/Vol] 112 mg/dL High 65-99 [facility] Comment on above: Result Comment: For FASTING Glucose --- ADA reference ranges: Normal 65-99 mg/dl Prediabetes 100-125 Diabetes >/= 126 Performed By: #### L IPD, CMP #### [facility] [address], [place] [id number] Potassium [Moles/Vol] 4.6 mmol/L Normal 3.5-5.5 [facility] Comment on above: Performed By: #### L IPD, CMP #### [facility] [address], [place] [id number] Protein [Mass/Vol] 6.4 g/dL Normal 6.1-8.1 [facility] [employer] Re[employer]ivable Collector Comment on above: Performed By: #### L IPD, CMP #### [facility] [address], [place] [id number] Sodium [Moles/Vol] 141 mmol/L Normal 135-146 [facility] Specialist Comment on above: Performed By: #### L IPD, CMP #### [facility] [address], [place] [id number] Urea nitrogen [Mass/Vol] 16 mg/dL Normal 7-25 [facility] Comment on above: Performed By: #### L IPD, CMP #### [facility] [address], [place] [id number] Lipid Panelon 11-21-2021 Cholesterol [Mass/Vol] 236 mg/dL High 125-200 [facility] Comment on above: Result Comment: Low risk < 200mg/dL Borderline risk 201-239 mg/dl High risk > or equal to 240 Performed By: #### L IPD, CMP #### [facility] [address], [place] [id number] Cholesterol in HDL [Mass/Vol] 40 mg/dL Low >40 [facility] Comment on above: Result Comment: High Cardiovascular Risk HDL <40 mg/dL Low Cardiovascular Risk HDL > or equal to 60 mg/dl Performed By: #### L IPD, CMP #### [facility] [address], [place] [id number] Cholesterol in LDL [Mass/Vol] 157 mg/dL Normal [facility] Comment on above: Result Comment: LDL ATP III CLASSIFICATION LDL less than 100 mg/dl Optimal LDL 100-129 mg/dl Near or above optimal LDL 130-159 Borderline high LDL 160-189 High LDL greater than 189 mg/dl Very High Performed By: #### L IPD, CMP #### [facility] [address], [place] [id number] Cholesterol in VLDL [Mass/Vol] 39 mg/dL Normal [facility] Comment on above: Performed By: #### L IPD, CMP #### [facility] [address], [place] [id number] Cholesterol.total/Ch olesterol in HDL [Mass ratio] 6 {ratio} Normal [facility] [employer] Comment on above: Performed By: #### L IPD, CMP #### [facility] [address], [place] [id number] Triglyceride [Mass/Vol] 194 mg/dL High 30-150 [facility] [employer] Comment on above: Result Comment: TRIG ATPIII CLASSIFICATIONS TRIG less than 150 mg/dl Normal TRIG 150-199 mg/dl Borderline High TRIG 200-500 mg/dl High TRIG greather than 500 mg/dl Very High Performed By: #### L IPD, CMP #### [facility] [address], [place] [id number] CBC AUTO DIFFon 04-15-2021 BASO # 0.0 103/ul Normal 0.0-0.1 [facility] Comment on above: Performed By: #### C BC #### [facility] [address] [place] [address] Dr. Wendy Kingsley Basophils/100 WBC (Bld) 0.6 % Normal 0.2-2.0 [facility] Comment on above: Performed By: #### C BC #### [facility] [address] [place] [address] Dr. Wendy Kingsley EO # 0.1 103/ul Normal 0.0-0.7 [facility] Comment on above: Performed By: #### C BC #### [facility] [address] [place] [address] Dr. Wendy Kingsley Eosinophils/100 WBC (Bld) 1.6 % Normal 0.9-7.0 [facility] Comment on above: Performed By: #### C BC #### [facility] [address] [place] [address] Dr. Wendy Kingsley Erythrocyte distribution width (RBC) [Ratio] 13.0 % Normal 11.0-15.0 [facility] Comment on above: Performed By: #### C BC #### [facility] [address] [place] [address] Dr. Wendy Kingsley Hematocrit (Bld) [Volume fraction] 43.0 % Normal 36.0-48.0 [facility] Comment on above: Performed By: #### C BC #### [facility] [address] [place] [address] Dr. Wendy Kingsley Hemoglobin (Bld) [Mass/Vol] 13.9 g/dL Normal 12.0-16.0 [facility] Comment on above: Performed By: #### C BC #### [facility] [address] [place] [address] Dr. Wendy Kingsley IG # 0.02 10e3/ul Normal 0.00-0.03 [facility] Comment on above: Performed By: #### C BC #### [facility] [address] [place] [address] Dr. Wendy Kingsley IG % 0.4 % Normal 0.0-0.5 [facility] Comment on above: Performed By: #### C BC #### [facility] [address] [place] [address] Dr. Wendy Kingsley LYMPH # 1.8 103/ul Normal 1.2-3.8 [facility] Comment on above: Performed By: #### C BC #### [facility] [address] [place] [address] Dr. Wendy Kingsley Lymphocytes/100 WBC (Bld) 34.2 % Normal 20.5-60.0 [facility] Comment on above: Performed By: #### C BC #### [facility] [address] [place] [address] Dr. Wendy Kingsley MANUAL DIFF REQ NO Normal [facility] Comment on above: Performed By: #### C BC #### [facility] [address] [place] [address] Dr. Wendy Kingsley MCH (RBC) [Entitic mass] 29.8 pg Normal 26.7-34.0 [facility] Comment on above: Performed By: #### C BC #### [facility] [address] [place] [address] Dr. Wendy Kingsley MCHC (RBC) [Mass/Vol] 32.3 g/dL Normal 29.9-35.2 [facility] Comment on above: Performed By: #### C BC #### [facility] [address] [address] [address] Wendy Kingsley MCV (RBC) [Entitic vol] 92.1 fL Normal 81.0-99.0 [facility] Comment on above: Performed By: #### C BC #### [facility] [address] [address] [address] Wendy Kingsley MONO # 0.6 103/ul Normal 0.3-0.8 [facility] Comment on above: Performed By: #### C BC #### [facility] [address] [address] [address] Wendy Kingsley Monocytes/100 WBC (Bld) 11.7 % Normal 1.7-12.0 [facility] Comment on above: Performed By: #### C BC #### [facility] [address] [address] [address] Wendy Kingsley NEUT # 2.6 103/ul Normal 1.4-6.5 [facility] Comment on above: Performed By: #### C BC #### [facility] [address] [address] [address] Wendy Kingsley Neutrophils/100 WBC (Bld) 51.5 % Normal 43.0-75.0 [facility] Comment on above: Performed By: #### C BC #### [facility] [address] [address] [address] Wendy Kingsley Platelet mean volume (Bld) [Entitic vol] 12.4 fL Normal 9.5-13.5 [facility] Comment on above: Performed By: #### C BC #### [facility] [address] [address] [address] Wendy Kingsley PLT 144 103/ul Critically low 150-450 [facility] Comment on above: Performed By: #### C BC #### [facility] [address] [address] [address] Wnedy Kingsley RBC 4.67 106/ul Normal 4.20-5.40 [facility] Comment on above: Performed By: #### C BC #### [facility] [address] [address] [address] Wendy Kingsley WBC 5.1 103/ul Normal 4.0-11.0 [facility] Comment on above: Performed By: #### C BC #### [facility] [address] [address] [address] Wendy Kingsley GLYCOHEMOGLOBIN A1Con 2020 ADA RECOMMENDATION ADA THERAPEUTIC TARGET 6.0 - 7.0 ACTION SUGGESTED > 7.0 Normal [facility] Comment on above: Performed By: #### A 1C #### [facility] [address] [place] [address] Dr. Wendy Kingsley Glucose [Mass/Vol] 108 mg/dL Normal [facility] Comment on above: Performed By: #### A 1C #### [facility] [address] [place] [address] Dr. Wendy Kingsley HbA1c (Bld) [Mass fraction] 5.4 % Normal <=6.0 [facility] Comment on above: Performed By: #### A 1C #### [facility] [address] [place] [address] Dr. Wendy Kingsley LIPID PROFILEon 04-15-2021 CHOL-HDL RATIO NORM SEE BELOW Normal [facility] Comment on above: Result Comment: 3.3 - 4.4 LOW RISK 4.4 - 7.1 AVERAGE RISK 7.1 - 11.0 MODERATE RISK >11.0 HIGH RISK Performed By: #### L IPID, BMP #### [facility] [address] [place] [address] Dr. Wendy Kingsley Cholesterol [Mass/Vol] 214 mg/dL Critically high <=200 [facility] Comment on above: Performed By: #### L IPID, BMP #### [facility] [address] [place] [address] Dr. Wendy Kingsley Cholesterol in HDL [Mass/Vol] 38 mg/dL Normal [facility] Comment on above: Performed By: #### L IPID, BMP #### [facility] [address] [place] [address] Dr. Wendy Kingsley Cholesterol in LDL [Mass/Vol] 138.8 mg/dL Normal [facility] Comment on above: Performed By: #### L IPID, BMP #### [facility] [address] [place] [address] Dr. Wendy Kingsley Cholesterol.total/Ch olesterol in HDL [Mass ratio] 5.6 {ratio} Normal [facility] Comment on above: Performed By: #### L IPID, BMP #### [facility] [address] [address] [address] Wendy Kingsley HDL NORMAL > or = 60 mg/dl - LOW CARDIOVASCULAR RISK <40 mg/dl - HIGH CARDIOVASCULAR RISK Normal [facility] Comment on above: Performed By: #### L IPID, BMP #### [facility] [address] [place] [address] Dr. Wendy Kingsley LDL CALC NORMAL SEE BELOW Normal [facility] Comment on above: Result Comment: <100 mg/dl OPTIMAL 100 - 129 mg/dl NEAR OR ABOVE OPTIMAL 130 - 159 mg/dl BORDERLINE HIGH 160 - 189 mg/dl HIGH >190 mg/dl VERY HIGH Performed By: #### L IPID, BMP #### [facility] [address] [address] [address] Wendy Kingsley Triglyceride [Mass/Vol] 186 mg/dL Critically high <=150 [facility] Comment on above: Performed By: #### L IPID, BMP #### [facility] [address] [place] [address] Dr. Wendy Kingsley VLDL CALC 37.2 mg/dL Normal [facility] Comment on above: Performed By: #### L IPID, BMP #### [facility] [address] [place] [address] Dr. Wendy Kingsley PROF CHEM 8 (BAS METB)on Anion gap [Moles/Vol] 11.2 mmol/L Normal [facility] Comment on above: Performed By: #### L IPID, BMP #### [facility] [address] [place] [address] Dr. Wendy Kingsley Calcium [Mass/Vol] 9.0 mg/dL Normal 8.4-10.2 [facility] Comment on above: Performed By: #### L IPID, BMP #### [facility] [address] [address] [address] Wendy Kingsley Chloride [Moles/Vol] 106 mmol/L Normal 98-107 [facility] Comment on above: Performed By: #### L IPID, BMP #### [facility] [address] [address] [address] Wendy Kingsley CO2 [Moles/Vol] 26.2 mmol/L Normal 22.0-30.0 [facility] Comment on above: Performed By: #### L IPID, BMP #### [facility] [address] [place] [address] Dr. Wendy Kingsley Creatinine [Mass/Vol] 0.95 mg/dL Normal 0.52-1.04 [facility] Comment on above: Performed By: #### L IPID, BMP #### [facility] [address] [place] [address] Dr. Wendy Kingsley EGFR-AF TANZANIAN >60 Normal >=60 [facility] Comment on above: Performed By: #### L IPID, BMP #### [facility] [address] [place] [address] Dr. Wendy Kingsley EGFR-NON AF TANZANIAN 58 mL/min/1.73m2 Critically low >=60 [facility] Comment on above: Performed By: #### L IPID, BMP #### [facility] [address] [place] [address] Dr. Wendy Kingsley Glucose [Mass/Vol] 96 mg/dL Normal 74-106 [facility] Comment on above: Performed By: #### L IPID, BMP #### [facility] [address] [address] [address] Wendy Kingsley Potassium [Moles/Vol] 4.4 mmol/L Normal 3.4-5.0 [facility] Comment on above: Performed By: #### L IPID, BMP #### [facility] [address] [place] [address] Dr. Wendy Kingsley Sodium [Moles/Vol] 139 mmol/L Normal 137-145 [facility] Comment on above: Performed By: #### L IPID, BMP #### [facility] [address] [address] [address] Wendy Kingsley Urea nitrogen [Mass/Vol] 17.0 mg/dL Normal 7.0-17.0 [facility] Comment on above: Performed By: #### L IPID, BMP #### [facility] [address] [id number] [address] Wendy Kingsley Urea nitrogen/Creatinine [Mass ratio] 17.9 mg/mg Normal [facility] Comment on above: Performed By: #### L IPID, BMP #### [facility] [address] [place] [address] Dr. Wendy Kingsley CNCOon 01-24-2019 CNCO Letter Text Normal [facility] Vital Signs Date Time Vital Sign Value Performing Clinician Facility 05-15-2023 10:15-0400 Body height 160.02 cm Silvia Morris Other [facility] Other 05-15-2023 10:15-0400 Body mass index (BMI) [Ratio] 28.55 kg/m2 Silvia Morrsi Other [facility] Other 05-15-2023 10:15-0400 Body temperature 98.4 [degF] Silvia Morris Other [facility] Other 05-15-2023 10:15-0400 Body weight 73.12 kg Silvia Morris Other [facility] Other 05-15-2023 10:15-0400 Diastolic blood pressure 80 mm[Hg] Silvia Morris Other [facility] Other 05-15-2023 10:15-0400 Respiratory rate 18 /min Silvia Morris Other [facility] Other 05-15-2023 10:15-0400 SaO2% (BldA) [Mass fraction] 95 % Silvia Morris Other [facility] Other 05-15-2023 10:15-0400 Systolic blood pressure 110 mm[Hg] Silvia Morris Other [facility] Other Encounters Encounter Date Encounter Type Care [...] Start: 01-22-2024 ambulatory Gwen Brian Facility:[facility] Start: 01-14-2024 End: 01-14-2024 ambulatory SHAKIRA OORNA Not Available Start: 01-14-2024 End: 01-14-2024 ambulatory SHAKIRA ORONA Not Available Start: 12-31-2023 End: 12-31-2023 ambulatory SHAKIRA ORONA Not Available Start: 12-17-2023 End: 12-17-2023 ambulatory SHAKIRA ORONA Not Available Start: 05-15-2023 End: 05-15-2023 ambulatory Silvia Morris Other [facility] Other Start: 05-15-2023 Office outpatient ne w 20 minutes Silvia Morris [facility] Start: 11-29-2021 End: 11-29-2021 Patient encounter procedure MD Shakira Orona [facility] Start: 04-15-2021 End: 04-16-[address] SHAKIRA ORONA Facility: Start: 11-01-2018 End: 11-02-2018 Patient encounter procedure DEFAULT PHYSICIAN Facility:[facility] Procedures Date Procedure Procedure Detail Performing Clinician Start: 11-29-2021 Screening mammograph y of bilateral breasts MD Shakira Orona Work Phone: Payers Date Payer Category Payer Private Health Insurance [id number] Self-pay 1950 Unknown [id number] 1950 Unknown [id number] 2.16.840.1.970278.3.579.2.727 1950 Unknown [id number] 2.16.840.1.023867.3.579.2.727 1950 Unknown [id number] 2.16.840.1.025524.3.579.2.727 1950 Unknown [id number] 2.16.840.1.787141.3.579.2.1259 1950 Unknown [id number] 2.16.840.1.033647.3.579.2.1258 1948 Unknown [id number] 2.16.840.1.332826.3.579.2.1259 1950 Unknown [id number] 2.16.840.1.213475.3.579.2.125 1950 Unknown [id number] 2.16.840.1.766393.3.579.2.1258 1948 Unknown [id number] 2.16.840.1.754294.3.579.2.1258 1948 Unknown [id number] 2.16.840.1.514057.3.579.2.1258 1948 Unknown [id number] 2.16.840.1.333005.3.579.2.1258 1948 Unknown [id number] 2.16.840.1.842584.3.579.2.1258 1948 Unknown [id number] 2.16.840.1.485173.3.579.2.1258 1948 Unknown [id number] 2.16.840.1.778897.3.579.2.1259 Medicare Medicare [id number] Medicare [id number] 2.1 [id number] Private Health Insurance [employer] MCR PFFS 1 [id number] Unknown Unknown [id number] 2.16.840.1.301657.3.579.2.593 Unknown Barbara WELLS/HANNAH [id number] Social History Date Type Detail Facility Tobacco smoking status MIIS Unknown if ever smoked [facility] Work Phone: Start: 1950 Sex Assigned At Female F [facility] Sex Assigned At Sex Assigned At Bir th [facility] Other Clinical Note 03-10-2024 Note Date & [...] risk of getting burned. Medicines ? Take cldp-vqz-ynhohra and prescription medicines only as told by your health care provider. ? Ask your health care provider if the medicine prescribed to you: ? Requires you to avoid driving or using machinery. ? Can cause constipation. You may need to take actions to prevent or treat constipation, such as: ? Drink enough fluid to keep your urine pale yellow. ? Take pprv-bnv-yjekhrt or prescription medicines. ? Eat foods that [...] activities are safe for you. ? Do vvxuw-lu-vebxwm exercises only as told by your health [...] right away if: (more content not included)... [facility] Evaluation note 05-15-2023 Note Date & [...] needs it. Patient verbalizes understanding of this. [employer] Other Evaluation note Note Date & Type Note Facility Evaluation note No assessment information [facility] Work Phone: History general Narrative - Reported Note Date & Type Note Facility History general Narrative - Reported Type Medical History Gastritis and gastro duodenitis, unspecified, without mention of hemorrhage Medical History Abdominal pain Surgical History CHOLECYSTECTOMY Surgical History TUBAL LIGATION Hospitalization History No Hospitalization histo ry information [facility] Other Summary Purpose Family History No Family [...] DATE CREATED AUTHOR 11/02/2018 [facility] DATE CREATED AUTHOR AUTHOR'S ORGANIZ ATION 01/27/2019 [facility] DATE CREATED AUTHOR AUTHOR'S ORGANIZ ATION 04/15/2021 [facility] DATE CREATED AUTHOR AUTHOR'S ORGANIZ ATION 11/22/2021 [facility]ical Specialist DATE CREATED AUTHOR AUTHOR'S ORGANIZ ATION 12/14/2021 [facility] DATE CREATED AUTHOR AUTHOR'S ORGANIZ ATION 03/11/2024 [facility] DATE CREATED AUTHOR AUTHOR'S ORGANIZ ATION 04/03/2024 [facility] dical Specialists EPIC Care Teams (unrecognized [...] BE BASED ON THE PRIMARY CLINICAL RECORDS. [employer] provides no warranty or guarantee of the accuracy or completeness of information in this document.
[2024-05-26 06:20] VITALS: BP 157/65; PULSE 71; TEMP 36.2; O2SAT 98
[2024-05-26] MEDS: DIAZEPAM 5 MG TABLET PO (06:25)
[2024-05-26] MEDS: CYCLOPENTOLATE HCL 1% OP SOL 40 DROP/2 ML BOTTLE OP ×4 (06:26→06:57)
[2024-05-26] MEDS: TROPICAMIDE 1% OP SOL 300 DROP/15 ML BOTTLE OP ×4 (06:26→06:57)
[2024-05-26] MEDS: PHENYLEPHRINE HCL 2.5% OP SOL 40 DROP/2 ML BOTTLE OP ×4 (06:26→06:57)
[2024-05-26] MEDS: BESIFLOXACIN HCL 100 DROP DROPS.SUSP OP ×4 (06:27→06:58)
[2024-05-26] MEDS: BETADINE POVIDONE-IODINE 5% OP SOL 30 ML BOTTLE OP (07:30)
[2024-05-26] MEDS: PROPARACAINE HCL 0.5% 300 DROP/15 ML BOTTLE OP (07:30)
[2024-05-26] MEDS: LIDOCAINE 2% JELLY 10 ML TOPICAL (07:31)
[2024-05-26 07:45] VITALS: BP 135/76; PULSE 60; O2SAT 98
[2024-05-26 07:46] VITALS: BP 135/70; PULSE 60; O2SAT 98
[2024-05-26] MEDS: PHENYLEPHRINE/KETOROLAC 1-0.3% ML VIAL 4 ML IRR (07:46)
[2024-05-26] MEDS: TETRACAINE HCL 0.5% OP SOL 80 DROP/4 ML BOTTLE OP (07:47)
[2024-05-26] MEDS: HYALURONATE SODIUM 16 MG/ML SYRINGE OP (07:47)
[2024-05-26] MEDS: LIDOCAINE HCL 1% PF 20 MG/2 ML VIAL INJ (07:47)
[2024-05-26] MEDS: APRACLONIDINE HCL 0.5% SOL 100 DROP/5 ML BOTTLE OP (07:59)
[2024-05-26] MEDS: PREDNISOLONE ACETATE OP 1% SUSP 100 DROPS/5 ML 1 DROP OP (08:00)
== END 2024-05-26 08:10 | disposition home or self-care (01) ==
LOC: SURGOUT 06:16
PROVIDERS: PCP Nurse Practitioner; Visit Provider Ophthalmology
PROC: (CPT 66984; principal; 2024-05-26 07:30)
DX: H25.12 Age-related nuclear cataract, left eye (principal)
CPT/HCPCS: 66984; V2630

== ENCOUNTER 2025-01-12 14:09 | Outpatient (OUT) | payer MEDICARE, SELFPAY ==
--- OUTSIDE RECORDS SUMMARY | 2025-01-12 14:16 | XMS_ITS | Referral Summary ---
Author Organization [facility] Address [address] [place] [address] Care Team Providers Care Online Tutor Name Role Phone Unavailable Primary Care Provider Unavailabl e Social History Tobacco Use Types Packs/Day Years Used Date Smoking Tobacco: Never Assessed Comments Unknown Sex and Gender Information Value Date Recorded Sex Assigned at Not on file Legal Sex Female 9:35 PM EDT Gender Identity Not on file Sexual Orientation Not on file Last Filed Vital Signs Vital Sign Reading Time Taken Comments Blood Pressure 125/75 12/30/2018 10:05 AM EDT Pulse - - Temperature - - Respiratory Rate - - Oxygen Saturation 96% 12/30/2018 10:05 AM EDT Inhaled Oxygen Concentration - - Weight 73.5 kg (162 lb) 12/30/2018 10:05 AM EDT Height 160 cm (5' 3 ) 12/30/2018 9:52 AM EDT Body Mass Index 28.7 12/30/2018 9:52 AM EDT Plan of Treatment Not on file
--- OUTSIDE RECORDS SUMMARY | 2025-01-12 14:16 | XMS_ITS | Encounter Summary ---
Author Organization [facility] Address [address] [place] [address] Care Team Providers Care Electric Well Logging Operator Name Role Phone Unavailable Primary Care Provider Unavailabl e Encounter Details Date Type Department Care Team (Late st Contact Info) Description 10/19/2024 Orders Only [facility] [address] [place] [address] Sai October, Osteopenia of lumbar spine; Osteopenia of both hips; Menopausal and female climacteric states Social History Tobacco Use Types Packs/Day Years Used Date Smoking Tobacco: Never Passive Smoke Exposure: Never Smokeless Tobacco: Never Alcohol Use Standard Drinks/Week Comments Not Currently 0 (1 standard drink = 0.6 oz pur e alcohol) AUDIT-C Answer Date Recorded Q1: How often do you have a drink containing alcohol? Never 01/08/2023 Q2: How many drinks containi ng alcohol do you have on a typical day when you are drinking? Patient does not drink Q3: How often do you have si x or more drinks on one occasion? Never 01/08/2023 PHQ-2 Answer Date Recorded Patient Health Questionnaire-2 Score 0 12/31/2023 Comments No Sex and Gender Information Value Date Recorded Sex Assigned at Not on file Legal Sex Female 7:02 PM EDT Gender Identity Not on file Sexual Orientation Not on file documented as of this encounter Plan of Treatment Not on file documented as of this encounter Visit Diagnoses Diagnosis Osteopenia of lumbar spine Osteopenia of both hips Menopausal and female climacteric states documented in this encounter Additional Health Concerns Assessment Noted Time PHQ-9 Depression Total Score: 0 12/31/19 10:00 AM EDT documented as of this encounter
--- OUTSIDE RECORDS SUMMARY | 2025-01-12 14:16 | XMS_ITS | Clinical Summary ---
Author Organization [facility] Address [address] [place] [address] Care Team Providers Care Abstracter Name Role Phone Unavailable Primary Care Provider [...]
--- OUTSIDE RECORDS SUMMARY | 2025-01-12 14:16 | XMS_ITS | Clinical Summary ---
Author Organization [facility] Address [address] [place] [address] Care Team Providers Care Soaping Machine Back Tender Name Role Phone Unavailable Primary Care Provider Unavailabl e Allergies Active Allergy Reactions Criticality Noted Date Comments Famciclovir 01/06/2023 Penicillin G Swelling 01/01/2023 Medications Lysine 500 MG capsule 1 (one) time each day at the same time. Active aspirin 81 MG EC tablet Take 81 mg by mouth 3 (three) times a week. Active Multiple Vitamin (Multi Vitamin) tablet 1 (one) time each day at the same time. Active cholecalciferol (Vitamin D-3) 1.25 MG (52733 UT) capsule Take 10,000 Units by mouth in the morning. Active levothyroxine (Synthroid, Levoxyl) 88 MCG tabletIndications: Acquired hypothyroidism Take 1 tablet (88 mcg) by mouth in the morning. Take before meals. 90 tablet 3 12/17/19 24 Active calcium citrate 250 MG tabletIndications: Osteopenia of lumbar spine Take 1 tablet (250 mg) by mouth in the morning and 1 tablet (250 mg) in the evening and 1 tablet (250 mg) before bedtime. 01/05/20 24 Active Additional Information Patient taking differently:250 mg Oral2 times weekly, Reported on 01/14/2024 ergocalciferol (Vitamin D2) 1.25 MG (56779 UT) capsule 01/28/20 24 Active HYDROcodone-acetam inophen (Shiprock) 5-325 MG tablet Take by mouth 03/10/20 24 Active meloxicam (Mobic) 15 MG tablet Take 15 mg by mouth 03/10/20 24 Active Active Problems Problem Noted Date Diagnosed Date Eyelid lesion 10/25/2024 Menopausal and female climacteric states 024 Osteopenia of lumbar spine 03/12/2023 Acquired hypothyroidism 01/01/2023 Chronic fatigue syndrome 01/01/2023 Chronic kidney disease (CKD), stage II (mild) Mixed hyperlipidemia 01/01/2023 Nonalcoholic fatty liver dis ease without nonalcoholic steatohepatitis (SYKES) 01/01/2023 Osteopenia of both hips 01/01/2023 Overweight (BMI 25.0-29.9) 01/01/2023 Seasonal allergic rhinitis due to pollen 023 Supraventricular tachycardia 01/01/2023 Ventricular premature contractions 01/01/2023 Vitamin D deficiency 01/01/2023 History of tubal ligation 05/23/2019 Resolved Problems Problem Noted Date Diagnosed Date Resolved Date Age-related nuclear cataract of both eyes 02/25/2024 10/25/2024 Cardiac arrhythmia 01/01/2023 Irregular heart beat 01/01/2023 024 Other specified disorders of bone density and structure, right thigh 01/01/2023 03/12/2023 Thrombocytopenia 01/01/2023 12/31/2023 Fatty liver 03/10/2018 03/12/2023 Encounters Date Type Department Care Team Description 10/25/2024 2:45 PM EDT Office Visit [facility] [address] [place] [id number] Lele Hollingsworth DO Eyelid lesion (Primary Dx); Hemorrhage, eyelid 10/25/2024 Bamboo flowsheet [facility] [address] [place] [address] Lele Hollingsworth DO 10/25/2024 Travel 10/19/2024 Orders Only [facility] [address] [place] [address] Sai, October, Osteopenia of lumbar spine; Osteopenia of both hips; Menopausal and female climacteric states from Last 3 Months Immunizations Immunization Administration Dates Next Due Hep A / Hep B 04/18/2008,11/18/2007,10/14/2007 IPV 10/14/2007 Moderna SARS-CoV-2 Vaccination 09/22/2020 Pfizer Bivalent Booster 12 Years And Older 05/29 Tdap 10/14/2007 Typhoid, ViCPs 10/14/2007 Family History Medical History Relation Name Comments Cancer Father Diabetes Father Heart disease Father Diabetes Mother Heart disease Mother Relation Name Status Comments Brother Alive Father Mother Sister Alive Son Alive Social History Tobacco Use Types Packs/Day Years Used Date Smoking Tobacco: Never Passive Smoke Exposure: Never Smokeless Tobacco: Never Tobacco Cessation:Counseling Given: Yes Alcohol Use Standard Drinks/Week Comments Not Currently [...] Sign Reading Time Taken Comments Blood Pressure 122/70 12/31/2023 10:20 AM EDT Pulse 76 12/31/2023 10:20 AM EDT Temperature - - Respiratory Rate - - Oxygen Saturation 97% 12/31/2023 10:20 AM EDT Inhaled Oxygen Concentration - - Weight 73.5 kg (162 lb) 04/01/2024 10:19 AM EDT Height 160 cm (5' 3 ) 04/01/2024 10:19 AM EDT Body Mass Index 28.7 04/01/2024 10:19 AM EDT Plan of Treatment Health Maintenance Due Date Last Done Comments Influenza Vaccine (Season Ended) 2025 Colonoscopy Discontinued 10/19/2013 Colorectal Cancer Screening Discontinued Mammogram Discontinued 11/29/2021, 04/0 07/2020, 05/20/2019, Additional history exists CT Colonography Discontinued FIT-DNA Discontinued FIT Discontinued FOBT Discontinued Pneumococcal Vaccine: 65+ Years Discontinued Sigmoidoscopy Discontinued Procedures Procedure Name Priority Date/Time Associated Diagnosis Comments BI MAMMOGRAM SCREENING TOMOSYNTHESIS BILATERAL Routine 11/29/2021 12:00 PM EDT COLONOSCOPY Routine 10/19/2013 12:00 PM EDT from Last 3 Months or Most Recently Relevant to Health Maintenance Results * Bilateral screening mammogram with tomosynthesis (11/29/2021 12:00 PM EDT) Anatomical Region Laterality Modality Breast Bilateral Mammography Narrative 11/29/2021 12:00 PM EDT PERFORMED AT [facility] LOCATION:[id number] Procedure Note CONVERSION, GENERIC - 01/23/2023 PERFORMED AT [facility] LOCATION:[id number] us Ernesto Vasquez MD IMG BI PROCEDURES Final Resu lt * Colonoscopy (10/19/2013 12:00 PM EDT) Anatomical Region Laterality Modality Endoscopy 10/19/2013 12:0 0 PM EDT Narrative 10/19/2013 12:00 PM EDT PERFORMED AT [facility] LOCATION:[id number] small hiatal hernia, antral gastritis, normal duodenum Procedure Note CONVERSION, GENERIC - 12/04/2022 PERFORMED AT [facility] LOCATION:[id number] small hiatal hernia, antral gastritis, normal duodenum us Ernesto Vasquez MD ENDOSCOPY PROCEDURE ORDERABL ES Final Result from Last 3 Months or Most Recently Relevant to Health Maintenance Insurance [employer]ARE
--- OUTSIDE RECORDS SUMMARY | 2025-01-12 14:16 | XMS_ITS | Encounter Summary ---
Author Organization [facility] Address [address] [place] [address] Care Team Providers Care Air Tank Assembler Name Role Phone Ernesto Orona MD Primary Care Provider + [phone] Encounter Details Date Type Department Care Team (Late st Contact Info) Description 01/05/2024 Clinisync Result Encounter [facility] External Department Unsolicited Ernesto Orona MD [address] [place] [address] Social History Tobacco Use Types Packs/Day Years [...] on file documented as of this encounter Procedures Procedure Name Priority Date/Time Associated Diagnosis Comments XR DEXA AXIAL SKELETON 01/05/2024 12:21 PM EDT documented in this encounter Results * XR DEXA AXIAL SKELETON (01/05/2024 12:21 PM EDT) Anatomical Region Laterality Modality Other 01/05/2024 12:2 1 PM EDT Narrative 01/05/2024 12:23 PM EDT [address] [address] XRay Report Signed Patient: THEO QUEEN MR#: [id number] : 1950 Acct:[id number] Age/Sex: 73 / F ADM Date: 01/05/24 Loc: RAD Attending Dr: ERNESTO ROONA Ordering Physician: ERNESTO ORONA Date of Service: 01/05/24 Procedure(s): XR DEXA axial skeleton Accession Number(s): [id number] cc: ERNESTO ORONA [place] [id number] Patient Name: THEO QUEEN MRN: [id number] date: 1950 Sex: F Assigned Patient Location: [facility] Current Patient Location: [facility] Accession/Order Number: [id number] Exam Date: 01/05/2024 10:20 Report Date: 01/05/2024 12:21 At the request of: ERNESTO ORONA Procedure: XR DEXA axial skeleton EXAMINATION: XR DEXA axial skeleton HISTORY: Osteopenia Lumbar Spine COMPARISON: DEXA bone densitometry 02/02/2009 TECHNIQUE: Dual-energy X-ray absorptiometry (DXA) was performed. FINDINGS: HIP ANALYSIS: Lowest bone mineral density is within the right femoral neck, 0.73 g/cm2. T-score (standard deviation relative to young adult mean): -1.8 . -6.7% change since prior study. XR/XR DEXA axial skeleton IMPRESSION: [employer] Organization Classification: Osteopenia - Moderate Fracture Risk FRAX: Electronically authenticated by: CHANDRAKANT SUAREZ Date: 01/05/2024 12:21 Dictated By: Chandrakant Suarez M.D. Signed By: 01/05/24 1223 DD/ 1221 TD/TT: Slope Hoist Operator: Procedure Note Radiology, Radiologist, - 01/05/[address] [address] XRay Report Signed Patient: THEO QUEEN FMR#: [id number] : 8Acct:[id number] Age/Sex: 73 / FADM Date: 01/05/24 Loc: RAD Attending Dr: ERNESTO ORONA Ordering Physician: ERNESTO ORONA Date of Service: 01/05/24 Procedure(s): XR DEXA axial skeleton Accession Number(s): [id number] cc: ERNESTO ORONA [place] [id number] Patient Name: THEO QUEEN MRN: [id number] date: 1950 Sex: F Assigned Patient Location: [facility] Current Patient Location: [facility] Accession/Order Number: [id number] Exam Date: 01/05/2024 10:20 Report Date: 01/05/2024 12:21 At the request of: ERNESTO ORONA Procedure: XR DEXA axial skeleton EXAMINATION: XR DEXA axial skeleton HISTORY: Osteopenia Lumbar Spine COMPARISON: DEXA bone densitometry 02/02/2009 TECHNIQUE: Dual-energy X-ray absorptiometry (DXA) was performed. FINDINGS: HIP ANALYSIS: Lowest bone mineral density is within the right femoral neck, 0.73 g/cm2. T-score (standard deviation relative to young adult mean): -1.8 . -6.7% change since prior study. XR/XR DEXA axial skeleton IMPRESSION: [employer] Organization Classification: Osteopenia - Moderate FractureRisk FRAX: Electronically authenticated by: CHANDRAKANT SUAREZ Date: 01/05/2024 12:21 Dictated By: Chandrakant Suarez M.D. Signed By:01/05/24 1223 DD/ 1221 TD/TT: Slope Hoist Operator: Ernesto Orona MD [facility] Final Resu lt documented in this encounter Visit Diagnoses Not on filedocumented in this encounter Additional Health Concerns Assessment Noted Time PHQ-9 Depression Total Score: 0 12/31/19 10:00 AM EDT documented as of this encounter Care Teams Air Tank Assembler Relationship Specialty Start Date End Date Ernesto Orona MD PCP - General Family Medicine 12/24/22 03/31/24 documented as of this encounter
--- OUTSIDE RECORDS SUMMARY | 2025-01-12 14:16 | XMS_ITS | Encounter Summary ---
Author Organization [facility] Address [address] [place] [address] Care Team Providers Care Civil Clerk Name Role Phone Ernesto Vasquez MD Primary Care Provider + [phone] Encounter Details Date Type Department Care Team (Late st Contact Info) Description 01/05/2024 Orders Only [facility] [address] [place] [address] Ernesto Vasquez MD [address] [facility] [address] [place] [address] Social History Tobacco Use Types Packs/Day Years [...] documented as of this encounter Visit Diagnoses Not on filedocumented in this encounter Additional Health Concerns Assessment Noted Time PHQ-9 Depression Total Score: 0 12/31/19 24 10:00 AM EDT documented as of this encounter Care Teams Civil Clerk Relationship Specialty Start Date End Date Ernesto Vasquez MD PCP - General Family Medicine 12/24/22 03/31/24 documented as of this encounter
--- NOTE | 2025-01-12 14:25 | XR_ITS ---
The [place] [id number] Patient Name: THEO QUEEN MRN: [id number] date: 1950 Sex: F Assigned Patient Location: [facility] Current Patient Location: [facility] Accession/Order Number: [id number] Exam Date: 01/12/2025 14:53 Report Date: 01/12/2025 14:54 At the request of: STEPHY SHELTON Procedure: XR hip LT min 2V LEFT HIP - 2 views: CLINICAL HISTORY: Left Hip Pain, Osteoarthritis COMPARISON: Mild FINDINGS: Mild degenerative changes of the left hip without acute bony process. XR/XR hip LT min 2V IMPRESSION: MILD DEGENERATIVE CHANGES OF THE LEFT HIP WITHOUT ACUTE BONY PROCESS.. Impression dictated by: Chico Wallace Jr., D.O. 01/12/2025 2:54 PM Dictation Location: [place] [address] Electronically authenticated by: [id number] Date: 01/12/2025 14:54
--- OUTSIDE RECORDS SUMMARY | 2025-01-12 17:42 | XMS_ITS | CCD ---
Author Organization [facility] Care Team Providers Care Staple Side Laster Name Role Phone PHYSICIAN, DEFAULT Admitting Unavailable PHYSICIAN, DEFAULT Attending Unavailable YEYO, DR ROSENBERG Attending Unavailable YEYO, DR ROSENBERG Consulting Unavailable YEYO, DR ROSENBERG Admitting Unavailable MD Shakira Orona Primary Care Provider [phone] MD Shakira Orona Referring Provider Self, Referral Attending Provider Unavailable Silvia Morris Unavailable Unavailable Primary Care Provider UnavailSHAKIRA Conrad Attending Unavailable SHAKIRA ORONA Attending Unavailable SHAKIRA ORONA Attending Unavailable HEMEYER, EDWARD Joan Referring Unavailable HUSSEIN SCHUSTER Attending Unavailable HEMESOLIS, SHAKIRA Franco Referring Unavailable PAIGE VERA Attending Unavailable HEMESOLIS, EDWARD J Referring Unavailable HEMESOLIS, EDWARD J Referring Unavailable ANTONELLA CHADWICK Attending Unavailable ANTONELLA CHADWICK Attending Unavailable HEMEYER, EDWARD J Referring Unavailable CHELSY MAYNARD Attending Unavailable HEMESOLIS, EDWARD J Referring Unavailable RENEE HOLLINGSWORTH Attending Unavailable RENETTA ARMIJO Referring Unavailable IZAIAH LEVINE Attending Unavailable NIKITALINDSAYDI Referring Unavailable RENEE HOLLINGSWORTH Attending Unavailable Nikita, PARK RECREATION MANAGER Gwen L Attending Unavailable Nikita, PARK RECREATION MANAGER Gwen L Attending Unavailable Nikita, PARK RECREATION MANAGER Gwen L Attending Unavailable Nikita, PARK RECREATION MANAGER Gwen L Attending Unavailable Allergies Allergy Classification Reported Allergen(s) Allergy Type Date of Onset Reaction(s) Facility (1 source) Penicillins (Antibiotic) Propensity to adverse reactions Unknown [facility] Other (1 source) FAVIOR Propensity to adverse reactions Unknown [place] Other (6 sources) famciclovir Drug Allergy 3 [facility] (6 sources) Penicillin G Drug Allergy 3 Swelling [facility] (1 source) Penicillin; Translations: [penicillin] Drug Allergy [facility] (1 source) No Known Medication Allergies; Translations: [No Known Medication Allergies] Propensity to adverse reactions (disorder) [facility] Medications Current Medications Medication Drug Class(es) Dates Sig (Normalized) Sig (Original) acetaminophen 325 mg / HYDROcodone bitartrate 5 mg oral tablet (5 sources) Opioid Agonist Start: 03-10-2024 HYDROcodone-acetami nophen ([place]) 5-325 MG tablet Take by mouth 03/10/2024 Active aspirin 81 mg delayed release oral tablet (6 sources) Platelet Aggregation Inhibitor, Nonsteroidal Anti-inflammatory Drug take 1 tablet by mouth three times weekly aspirin 81 MG EC tablet Take 81 mg by mouth 3 (three) times a week. Active azithromycin 250 mg oral tablet (1 source) Macrolide Antimicrobial Start: 05-15-2023 Azithromycin 250 MG 2 tablet on the first day, then 1 tablet daily for 4 days Orally Once a day for 5 days Apr, Active calcium citrate 1040 mg oral tablet (6 sources) Start: 01-05-2024 take 1 tablet by mouth in the morning, then take 1 tablet by mouth in the evening, then take 1 tablet by mouth at bedtime calcium citrate 250 MG tablet Indications: Osteopenia of lumbar spine Take 1 tablet (250 mg) by mouth in the morning and 1 tablet (250 mg) in the evening and 1 tablet (250 mg) before bedtime. 01/05/2024 Active cholecalciferol 1.25 mg oral capsule (6 sources) Vitamin D take 1 capsule by mouth in the morning cholecalciferol (Vitamin D-3) 1.25 MG (06280 UT) capsule Take 10,000 Units by mouth in the morning. Active ergocalciferol 1.25 mg oral capsule (5 sources) Provitamin D2 Compound Start: 01-28-2024 ergocalciferol (Vitamin D2) 1.25 MG (51106 UT) capsule 01/28/2024 Active ketorolac tromethamine 5 mg/ml ophthalmic solution (3 sources) Nonsteroidal Anti-inflammatory Drug, Cyclooxygenase Inhibitor Start: 04-18-2024 End: 05-18-2024 take 1 drop(s) into the eye(s) in the morning ketorolac (Acular) 0.5 % ophthalmic solution Indications: Age-related nuclear cataract of both eyes Administer 1 drop into affected eye(s) in the morning and 1 drop before bedtime. 5 mL 1 04/18/2024 05/18/2024 Active Start: 02-25-2024 End: 04-01-2024 take 1 drop(s) into the eye(s) in the morning ketorolac (Acular) 0.5 % ophthalmic solution Indications: Age-related nuclear cataract of both eyes Administer 1 drop into affected eye(s) in the morning and 1 drop before bedtime. 5 mL 1 02/25/2024 04/01/2024 levothyroxine sodium 0.088 mg oral tablet (7 sources) l-Thyroxine Start: 12-17-2023 End: 12-16-2024 take 1 tablet by mouth before mealtime levothyroxine (Synthroid, Levoxyl) 88 MCG tablet Indications: Acquired hypothyroidism (CMS/HCC) Take 1 tablet (88 mcg) by mouth in the morning. Take before meals. 90 tablet 3 12/17/2023 12/16/2024 Active take 1 tablet by karina th once daily in the morning Levothyroxine Sodium 100 MCG 1 tablet on an empty stomach in the morning Orally Once a day for 30 day(s) Active lysine 500 mg oral capsule (6 sources) Lysine 500 MG capsule 1 (one) time each day at the same time. Active meloxicam 15 mg oral tablet (5 sources) Nonsteroidal Anti-inflammatory Drug Start: meloxicam (Mobic) 15 MG tablet Take 15 mg by mouth 03/10/2024 Active methylPREDNISolone 4 mg oral tablet (1 source) Corticosteroid Start: Medrol 4 MG as directed Orally As Directed for 6 days Apr, Active Multiple Vitamin (Multi Vitamin) tablet (6 sources) Multiple Vitamin (Multi Vitamin) tablet 1 (one) time each day at the same time. Active ofloxacin 3 mg/ml ophthalmic solution (1 source) Quinolone Antimicrobial Start: End: take 1 drop(s) into the eye(s) five times daily ofloxacin (Ocuflox) 0.3 % ophthalmic solution Indications: Age-related nuclear cataract of both eyes Administer 1 drop into the right eye 5 (five) times a day for 1 day Starting 1 day before surgery, continue after surgery as directed 5 mL 1 04/18/2024 04/19/2024 Active prednisoLONE acetate 10 mg/ml ophthalmic suspension (1 source) Corticosteroid Start: End: prednisoLONE acetate (Pred-Forte) 1 % ophthalmic suspension Indications: Age-related nuclear cataract of both eyes Administer 1 drop into both eyes in the morning and 1 drop at noon and 1 drop in the evening and 1 drop before bedtime. Do all this for 14 days. 5 mL 1 04/18/2024 05/02/2024 Active Vitamin D3 (1 source) Vitamin D3 [...] Active Problems Problem Classification Problem Date Documented Date Episodic/Chronic Abdominal pain (2 sources) Abdominal pain; Translations: [Generalized abdominal pain] Episodic Cardiac dysrhythmias (20 sources) Supraventricular tachycardia; Translations: [Supraventricular tachycardia] Onset: 01-01-2023 Resolved: 12-31-2023 01-01-2023 Chronic Chronic kidney disease (6 sources) Chronic kidney disease stage 2; Translations: [Chronic kidney disease, stage 2 (mild)] Onset: 01-01-2023 01-01-2023 Chronic Chronic obstructive pulmonary disease and bronchiectasis (1 source) Bronchitis, not specified as acute or chronic Episodic Disorders of lipid metabolism (6 sources) Mixed hyperlipidemia; Translations: [Mixed hyperlipidemia] Onset: 01-01-2023 01-01-2023 Chronic Esophageal disorders (2 sources) Esophagitis; Translations: [Esophagitis, unspecified] Episodic Gastritis and duodenitis (1 source) Gastritis; Translations: [Gastritis, unspecified, without bleeding] Episodic Malaise and fatigue (6 sources) Chronic fatigue syndrome; Translations: [Chronic fatigue syndrome] Onset: 01-01-2023 01-01-2023 Chronic Menopausal disorders (6 sources) Menopausal syndrome; Translations: [Menopausal and female climacteric states] Onset: 12-17-2023 12-17-2023 Chronic Nutritional deficiencies (6 sources) Vitamin D deficiency; Translations: [Vitamin D deficiency, unspecified] Onset: 01-01-2023 01-01-2023 Chronic Other connective tissue disease (2 sources) Nontraumatic complete rupture of rotator cuff of right shoulder; Translations: [Complete rotator cuff tear or rupture of right shoulder, not specified as traumatic] 04-01-2024 Episodic Other connective tissue disease (2 sources) Adhesive capsulitis of right shoulder; Translations: [Adhesive capsulitis of right shoulder] 04-01-2024 Episodic Other eye disorders (2 sources) Lesion of eyelid; Translations: [Unspecified disorder of eyelid] Onset: 10-25-2024 10-25-2024 Episodic Other eye disorders (1 source) Hemorrhage of eyelid; Translations: [Other specified disorders of eyelid] 10-25-2024 Episodic Other liver diseases (6 sources) Non-alcoholic fatty liver disease without non-alcoholic steatohepatitis; Translations: [Fatty (change of) liver, not elsewhere classified] Onset: 01-01-2023 01-01-2023 Chronic Other upper respiratory disease (6 sources) Allergic rhinitis due to pollen; Translations: [Allergic rhinitis due to pollen] Onset: 01-01-2023 01-01-2023 Chronic Thyroid disorders (6 sources) Acquired hypothyroidism; Translations: [Hypothyroidism, unspecified] Onset: 01-01-2023 01-01-2023 Chronic Past or Other Problems Problem Classification Problem Date Documented Date Episodic/Chronic Cataract (7 sources) Bilateral age-related nuclear cataracts; Translations: [Age-related nuclear cataract, bilateral] Onset: 02-25-2024 Resolved: 10-25-2024 02-25-2024 Chronic Coagulation and hemorrhagic disorders (6 sources) Thrombocytopenic disorder; Translations: [Thrombocytopenia, unspecified] Onset: 01-01-2023 Resolved: 12-31-2023 12-31-2023 Chronic Mood disorders (6 sources) Mood disorders Onset: 12-31-2023 12-31-2023 Other bone disease and musculoskeletal deformities (12 sources) Osteopenia; Translations: [Other specified disorders of bone density and structure, right thigh] Onset: 01-01-2023 03-12-2023 Episodic Other bone disease and musculoskeletal deformities (6 sources) Disorder of bone; Translations: [Other specified disorders of bone density and structure, right thigh] Onset: 01-01-2023 Resolved: 03-12-2023 03-12-2023 Episodic Other liver diseases (6 sources) Steatosis of liver; Translations: [Fatty (change of) liver, not elsewhere classified] Onset: 03-10-2018 Resolved: 03-12-2023 03-12-2023 Chronic Other nutritional; endocrine; and metabolic disorders (6 sources) Body mass index 25-29 - overweight; Translations: [Overweight] Onset: 01-01-2023 01-01-2023 Episodic Unclassified (1 source) Contact with and (suspected) [...] Ask y (more content not included)... Normal [facility] Family Medicine Office/Clini c Noteon 03-10-2024 Family [...] reviewed MRI results. will send referral to [facility] access orthopedics. pt is c/o 10/10 [...] 50,000 intl units (1.25 mg) oral capsule, 62506 International_Unit= 1 cap(s), Oral, qWeek, 3 refills Allergies penicillin (Swelling) Social History Tobacco Never (less than 100 in lifetime) Tobacco Use:. Never Smokeless Tobacco Use:. Cigarettes, Household tobacco concerns: No. Yes, 03/10/2024 Family History Primary malignant neoplasm of lung: Father. Prostate cancer: Father. Immunizations Vaccine Date Status Comments SARS-CoV-2 (COVID-19) mRNAMUL.ORD![id number] 05/29/2022 Recorded 2024-02-17: TPV70 SARS-CoV-2 (COVID-19) mRNA BNT-162b2 vax 06/11/2021 Recorded 2024-02-17: TPV70 SARS-CoV-2 (COVID-19) Ad26 vaccine 09/22/2020 Recorded hepatitis A-hepatitis B vaccine 04/18/2008 Recorded hepatitis A-hepatitis B vaccine 11/18/2007 Recorded typhoid vaccine, inactivated 10/14/2007 Recorded diphtheria/pertussis , acel/tetanus adult 10/14/2007 Recorded poliovirus vaccine, inactivated 10/14/2007 Recorded hepatitis A-hepatitis B vaccine 10/14/2007 Recorded Normal [facility] Comment on above: Result Comment: Elec tronically Signed By: Gwen Conklin\.br\Date and Time Signed: 03/10/24 10:59 EDT Family [...] Associated Symptoms:_ none Doing MRI tomorrow @ [facility] Did 4 sessions of PT and made pain worse. Last one was done was February 07 Xray done January 24 @ [place] showed calcium and arthritis She can not [...] an eye out for the results from [facility]. she has follow up scheduled on [...] 50,000 intl units (1.25 mg) oral capsule, 05449 International_Unit= 1 cap(s), Oral, qWeek, 3 refills Allergies penicillin (Swelling) Social History Tobacco Never (less than 100 in lifetime) Tobacco Use:. Never Smokeless Tobacco Use:. Cigarettes, 02/18/2024 Family History Primary malignant neoplasm of lung: Father. Prostate cancer: Father. Immunizations Vaccine Date Status Comments SARS-CoV-2 (COVID-19) mRNAMUL.[id number] 05/29/2022 Recorded 2024-02-17: TPV70 SARS-CoV-2 (COVID-19) mRNA BNT-162b2 vax 06/11/2021 Recorded 2024-02-17: TPV70 SARS-CoV-2 (COVID-19) Ad26 vaccine 09/22/2020 Recorded hepatitis A-hepatitis B vaccine 04/18/2008 Recorded hepatitis A-hepatitis B vaccine 11/18/2007 Recorded typhoid vaccine, inactivated 10/14/2007 Recorded diphtheria/pertussis , acel/tetanus adult 10/14/2007 Recorded poliovirus vaccine, inactivated 10/14/2007 Recorded hepatitis A-hepatitis B vaccine 10/14/2007 Recorded Normal [facility] Comment on above: Result Comment: Elec [...] 10:00 AM EDT With: Gwen Conklin Where: [facility] Ambulatory Visit Summary Ambulatory Visit Summary [...] for choosing us for your care. Normal [facility] Family Medicine Office/Clini c Noteon 01-28-2024 Family Medicine Office/Clinic Note Family Medicine Office/Clinic Note HPI Staff Ana Rosa is a 74 year old female presenting to establish care Establish Care: History: Any previous diagnosis: Skin cancer, Hypertention History of seeing any specialist: Professor Of Social Work ( Dr. Ferreira) When was your last [...] 9:24:00 E (more content not included)... Normal [facility] Comment on above: Result Comment: Elec [...] (COVID-19) RNA MAURICE+probe Ql (Unsp spec) Negative [facility] Other COVID/FLU RT-PCR Negative [employer] Other MM screening mammo BI w/CADo n 11-29-2021 MM screening mammo BI w/CAD [facility] [place] [address] Mammography Report Signed Patient: Ana Rosa Tucker MR#: [id number] 62 : 1950 Acct:[id number] Age/Sex: 71 / F ADM Date: 11/29/21 Loc: IN Room: Type: [facility] Attending Dr: Referral Self Ordering Provider: ANDREIA,REFERRAL Date of Service: 11/29/21 MM/MM screening mammo BI w/CAD: SCREENING Copies to: Shakira Oroan MD SELF,REFERRAL CLINICAL DATA: Screening for malignancy. [...] Elizabeth Dill M.D.11/29/2021 2:44 PM Dictation Location: [facility] Transcribed By: ROLAND 11/29/21 1444 Dictated By: Elizabeth Dill MD 11/29/21 1434 Signed By: 11/29/[address] [facility] Comprehensive Metabolic Pane felicia 11-21-2021 Albumin [Mass/Vol] 4.3 g/dL Normal 3.6-5.1 [facility] [employer] Machine Tender Comment on above: Performed By: #### L DEISY CMP #### [facility] [address], [place] [id number] Albumin/Globulin [Mass ratio] 2.0 {ratio} Normal 1.0-2.5 [facility] [employer] Tender Comment on above: Performed By: #### L DEISY CMP #### [facility] [address], [place] [id number] ALP [Catalytic activity/Vol] 95 U/L Normal 35-119 [facility] [employer] Machine Tender Comment on above: Performed By: #### L DEISY CMP #### [facility] [address], [place] [id number] ALT [Catalytic activity/Vol] 21 U/L Normal 6-33 [facility] [employer] Machine Tender Comment on above: Result Comment: 06/19 Female reference range changed. Performed By: #### L DEISY, CMP #### [facility] [address], [place] [id number] Anion gap [Moles/Vol] 12 mmol/L Normal 12-20 [facility] Comment on above: Result Comment: Sylvain ctive 07/25/2019 reference range changed. Performed By: #### L IPD, CMP #### [facility] [address], [place] [id number] AST [Catalytic activity/Vol] 21 U/L Normal 9-34 [facility] Comment on above: Performed By: #### L IPD, CMP #### [facility] [address], [place] [id number] Bilirubin [Mass/Vol] 0.67 mg/dL Normal 0.30-1.20 [facility] Comment on above: Performed By: #### L IPD, CMP #### [facility] [address], [place] [id number] BUN/CREA 18 Ratio Normal 6-22 [facility] Comment on above: Performed By: #### L IPD, CMP #### [facility] [address], [place] [id number] Calcium [Mass/Vol] 9.6 mg/dL Normal 8.6-10.2 [facility] Comment on above: Performed By: #### L IPD, CMP #### [facility] [address], [place] [id number] Chloride [Moles/Vol] 107 mmol/L Normal 98-107 [facility] Comment on above: Performed By: #### L IPD, CMP #### [facility] [address], [place] [id number] CO2 [Moles/Vol] 26 mmol/L Normal 20-31 [facility] Comment on above: Performed By: #### L IPD, CMP #### [facility] [address], [place] [id number] Creatinine [Mass/Vol] 0.9 mg/dL Normal 0.6-1.4 [facility] Comment on above: Performed By: #### L IPD, CMP #### [facility] [address], [place] [id number] eGFRAA 78 mL/min/1.73m2 Normal >60 [place] [employer] Comment on above: Performed By: #### L IPD, CMP #### [facility] [address], [place] [id number] eGFRNAA 65 mL/min/1.73m2 Normal >60 [facility] [employer] Machine Tender Comment on above: Performed By: #### L IPD, CMP #### [facility] [address], [place] [id number] Globulin (S) [Mass/Vol] 2.1 g/dL Normal 1.9-3.7 [facility] [employer] T[employer] Comment on above: Performed By: #### L IPD, CMP #### [facility] [address], [place] [id number] Glucose [Mass/Vol] 112 mg/dL High 65-99 [facility] [employer] T[employer] Comment on above: Result Comment: For FASTING Glucose --- ADA reference ranges: Normal 65-99 mg/dl Prediabetes 100-125 Diabetes >/= 126 Performed By: #### L IPD, CMP #### [facility] [address], [place] [id number] Potassium [Moles/Vol] 4.6 mmol/L Normal 3.5-5.5 [facility] [employer] T[employer] Comment on above: Performed By: #### L IPD, CMP #### [facility] [address], [place] [id number] Protein [Mass/Vol] 6.4 g/dL Normal 6.1-8.1 [facility] [employer] Tender Comment on above: Performed By: #### L IPD, CMP #### [facility] [address], [place] [id number] Sodium [Moles/Vol] 141 mmol/L Normal 135-146 [facility] [employer] Machine Tender Comment on above: Performed By: #### L IPD, CMP #### [facility] [address], [place] [id number] Urea nitrogen [Mass/Vol] 16 mg/dL Normal 7-25 [facility] [employer] T[employer] Comment on above: Performed By: #### L IPD, CMP #### [facility] [address], [place] [id number] Lipid Panelon 11-21-2021 Cholesterol [Mass/Vol] 236 mg/dL High 125-200 [facility] Comment on above: Result Comment: Low risk < 200mg/dL Borderline risk 201-239 mg/dl High risk > or equal to 240 Performed By: #### L IPD, CMP #### [facility] [address], [place] [id number] Cholesterol in HDL [Mass/Vol] 40 mg/dL Low >40 [facility] Comment on above: Result Comment: High Cardiovascular Risk HDL <40 mg/dL Low Cardiovascular Risk HDL > or equal to 60 mg/dl Performed By: #### L IPD, CMP #### [facility] [address], [place] [id number] Cholesterol in LDL [Mass/Vol] 157 mg/dL Normal [facility] Comment on above: Result Comment: LDL ATP III CLASSIFICATION LDL less than 100 mg/dl Optimal LDL 100-129 mg/dl Near or above optimal LDL 130-159 Borderline high LDL 160-189 High LDL greater than 189 mg/dl Very High Performed By: #### L IPD, CMP #### [facility] [address], [place] [id number] Cholesterol in VLDL [Mass/Vol] 39 mg/dL Normal [facility] Comment on above: Performed By: #### L IPD, CMP #### [facility] [address], [place] [id number] Cholesterol.total/Ch olesterol in HDL [Mass ratio] 6 {ratio} Normal [facility] Comment on above: Performed By: #### L IPD, CMP #### [facility] [address], [place] [id number] Triglyceride [Mass/Vol] 194 mg/dL High 30-150 [facility] Comment on above: Result Comment: TRIG ATPIII CLASSIFICATIONS TRIG less than 150 mg/dl Normal TRIG 150-199 mg/dl Borderline High TRIG 200-500 mg/dl High TRIG greather than 500 mg/dl Very High Performed By: #### L IPD, CMP #### [facility] [address], [place] [id number] CBC AUTO DIFFon 04-15-2021 BASO # 0.0 103/ul Normal 0.0-0.1 [facility] Comment on above: Performed By: #### C BC #### [facility] [address] [place] [address] Dr. Wendy Kingsley Basophils/100 WBC (Bld) 0.6 % Normal 0.2-2.0 [facility] Comment on above: Performed By: #### C BC #### [facility] [address] [place] [address] Dr. Wendy Kingsley EO # 0.1 103/ul Normal 0.0-0.7 [facility] Comment on above: Performed By: #### C BC #### [facility] [address] [place] [address] Dr. Wendy Kingsley Eosinophils/100 WBC (Bld) 1.6 % Normal 0.9-7.0 [facility] Comment on above: Performed By: #### C BC #### [facility] [address] [place] [address] Dr. Wendy Kingsley Erythrocyte distribution width (RBC) [Ratio] 13.0 % Normal 11.0-15.0 [facility] Comment on above: Performed By: #### C BC #### [facility] [address] [place] [address] Dr. Wendy Kingsley Hematocrit (Bld) [Volume fraction] 43.0 % Normal 36.0-48.0 [facility] Comment on above: Performed By: #### C BC #### [facility] [address] [place] [address] Dr. Wendy Kingsley Hemoglobin (Bld) [Mass/Vol] 13.9 g/dL Normal 12.0-16.0 [facility] Comment on above: Performed By: #### C BC #### [facility] [address] [place] [address] Dr. Wendy Kingsley IG # 0.02 10e3/ul Normal 0.00-0.03 [facility] Comment on above: Performed By: #### C BC #### [facility] [address] [place] [address] Dr. Wendy Kingsley IG % 0.4 % Normal 0.0-0.5 [facility] Comment on above: Performed By: #### C BC #### [facility] [address] [place] [address] Dr. Wendy Kingsley LYMPH # 1.8 103/ul Normal 1.2-3.8 [facility] Comment on above: Performed By: #### C BC #### [facility] [address] [place] [address] Dr. Wendy Kingsley Lymphocytes/100 WBC (Bld) 34.2 % Normal 20.5-60.0 [facility] Comment on above: Performed By: #### C BC #### [facility] [address] [place] [address] Dr. Wendy Kingsley MANUAL DIFF REQ NO Normal [facility] Comment on above: Performed By: #### C BC #### [facility] [address] [place] [address] Dr. Wendy Kingsley MCH (RBC) [Entitic mass] 29.8 pg Normal 26.7-34.0 [facility] Comment on above: Performed By: #### C BC #### [facility] [address] [place] [address] Dr. Wendy Kingsley MCHC (RBC) [Mass/Vol] 32.3 g/dL Normal 29.9-35.2 [facility] Comment on above: Performed By: #### C BC #### [facility] [address] [place] [address] Dr. Wendy Kingsley MCV (RBC) [Entitic vol] 92.1 fL Normal 81.0-99.0 [facility] Comment on above: Performed By: #### C BC #### [facility] [address] [place] [address] Dr. Wendy Kingsley MONO # 0.6 103/ul Normal 0.3-0.8 [facility] Comment on above: Performed By: #### C BC #### [facility] [address] [place] [address] Dr. Wendy Kingsley Monocytes/100 WBC (Bld) 11.7 % Normal 1.7-12.0 [facility] Comment on above: Performed By: #### C BC #### [facility] [address] [address] [address] Wendy Kingsley NEUT # 2.6 103/ul Normal 1.4-6.5 [facility] Comment on above: Performed By: #### C BC #### [facility] [address] [place] [address] Dr. Wendy Kingsley Neutrophils/100 WBC (Bld) 51.5 % Normal 43.0-75.0 [facility] Comment on above: Performed By: #### C BC #### [facility] [address] [place] [address] Dr. Wendy Kingsley Platelet mean volume (Bld) [Entitic vol] 12.4 fL Normal 9.5-13.5 [facility] Comment on above: Performed By: #### C BC #### [facility] [address] [place] [address] Dr. Wendy Kingsley PLT 144 103/ul Critically low 150-450 [facility] Comment on above: Performed By: #### C BC #### [facility] [address] [place] [address] Dr. Wendy Kingsley RBC 4.67 106/ul Normal 4.20-5.40 [facility] Comment on above: Performed By: #### C BC #### [facility] [address] [place] [address] Dr. Wendy Kingsley WBC 5.1 103/ul Normal 4.0-11.0 [facility] Comment on above: Performed By: #### C BC #### [facility] [address] [place] [address] Dr. Wendy Kingsley GLYCOHEMOGLOBIN A1Con 2020 ADA RECOMMENDATION ADA THERAPEUTIC TARGET 6.0 - 7.0 ACTION SUGGESTED > 7.0 Normal [facility] Comment on above: Performed By: #### A 1C #### [facility] [address] [place] [address] Dr. Wendy Kingsley Glucose [Mass/Vol] 108 mg/dL Normal [facility] Comment on above: Performed By: #### A 1C #### [facility] [address] [place] [address] Dr. Wendy Kingsley HbA1c (Bld) [Mass fraction] 5.4 % Normal <=6.0 [facility] Comment on above: Performed By: #### A 1C #### [facility] [address] [address] [address] Wendy Kingsley LIPID PROFILEon 04-15-2021 CHOL-HDL RATIO NORM SEE BELOW Normal [facility] Comment on above: Result Comment: 3.3 - 4.4 LOW RISK 4.4 - 7.1 AVERAGE RISK 7.1 - 11.0 MODERATE RISK >11.0 HIGH RISK Performed By: #### L IPID, BMP #### [facility] [address] [address] [address] Wendy Kingsley Cholesterol [Mass/Vol] 214 mg/dL Critically high <=200 [facility] Comment on above: Performed By: #### L IPID, BMP #### [facility] [address] [address] [address] Wendy Kingsley Cholesterol in HDL [Mass/Vol] 38 mg/dL Normal [facility] Comment on above: Performed By: #### L IPID, BMP #### [facility] [address] [address] [address] Wendy Kingsley Cholesterol in LDL [Mass/Vol] 138.8 mg/dL Normal [facility] Comment on above: Performed By: #### L IPID, BMP #### [facility] [address] [address] [address] Wendy Kingsley Cholesterol.total/Ch olesterol in HDL [Mass ratio] 5.6 {ratio} Normal [facility] Comment on above: Performed By: #### L IPID, BMP #### [facility] [address] [address] [address] Wendy Kingsley HDL NORMAL > or = 60 mg/dl - LOW CARDIOVASCULAR RISK <40 mg/dl - HIGH CARDIOVASCULAR RISK Normal [facility] Comment on above: Performed By: #### L IPID, BMP #### [facility] [address] [address] [address] Wendy Kingsley LDL CALC NORMAL SEE BELOW Normal [facility] Comment on above: Result Comment: <100 mg/dl OPTIMAL 100 - 129 mg/dl NEAR OR ABOVE OPTIMAL 130 - 159 mg/dl BORDERLINE HIGH 160 - 189 mg/dl HIGH >190 mg/dl VERY HIGH Performed By: #### L IPID, BMP #### [facility] [address] [place] [address] Dr. Wendy Kingsley Triglyceride [Mass/Vol] 186 mg/dL Critically high <=150 [facility] Comment on above: Performed By: #### L IPID, BMP #### [facility] [address] [place] [address] Dr. Wendy Kingsley VLDL CALC 37.2 mg/dL Normal [facility] Comment on above: Performed By: #### L IPID, BMP #### [facility] [address] [place] [address] Dr. Wendy Kingsley PROF CHEM 8 (BAS METB)on Anion gap [Moles/Vol] 11.2 mmol/L Normal [facility] Comment on above: Performed By: #### L IPID, BMP #### [facility] [address] [place] [address] Dr. Wendy Kingsley Calcium [Mass/Vol] 9.0 mg/dL Normal 8.4-10.2 [facility] Comment on above: Performed By: #### L IPID, BMP #### [facility] [address] [place] [address] Dr. Wendy Kingsley Chloride [Moles/Vol] 106 mmol/L Normal 98-107 [facility] Comment on above: Performed By: #### L IPID, BMP #### [facility] [address] [place] [address] Dr. Wendy Kingsley CO2 [Moles/Vol] 26.2 mmol/L Normal 22.0-30.0 [facility] Comment on above: Performed By: #### L IPID, BMP #### [facility] [address] [place] [address] Dr. Wendy Kingsley Creatinine [Mass/Vol] 0.95 mg/dL Normal 0.52-1.04 [facility] Comment on above: Performed By: #### L IPID, BMP #### [facility] [address] [address] [address] Wendy Kingsley EGFR-AF [place]ITT[place] >60 Normal >=60 [facility] Comment on above: Performed By: #### L IPID, BMP #### [facility] [address] [address] [address] Wendy Kingsley EGFR-NON AF KITT[place]IAN 58 mL/min/1.73m2 Critically low >=60 [facility] Comment on above: Performed By: #### L IPID, BMP #### [facility] [address] [address] [address] Wendy Kingsley Glucose [Mass/Vol] 96 mg/dL Normal 74-106 [facility] Comment on above: Performed By: #### L IPID, BMP #### [facility] [address] [address] [address] Wendy Kingsley Potassium [Moles/Vol] 4.4 mmol/L Normal 3.4-5.0 [facility] Comment on above: Performed By: #### L IPID, BMP #### [facility] [address] [place] [address] Dr. Wendy Kingsley Sodium [Moles/Vol] 139 mmol/L Normal 137-145 [facility] Comment on above: Performed By: #### L IPID, BMP #### [facility] [address] [place] [address] Dr. Wendy Kingsley Urea nitrogen [Mass/Vol] 17.0 mg/dL Normal 7.0-17.0 [facility] Comment on above: Performed By: #### L IPID, BMP #### [facility] [address] [address] [address] Wendy Kingsley Urea nitrogen/Creatinine [Mass ratio] 17.9 mg/mg Normal [facility] Comment on above: Performed By: #### L IPID, BMP #### [facility] [address] [address] [address] Wendy Kingsley CNCOon 01-24-2019 CNCO Letter Text Normal [facility] Vital Signs Date Time Vital Sign Value Performing Clinician Facility 04-01-2024 10:19-0400 Body height 160 cm Izaiah Pocos DO Work Phone: [facility] 04-01-2024 10:19-0400 Body mass index (BMI) [Ratio] 28.7 kg/m2 Izaiah Pocos DO Work Phone: [facility] 04-01-2024 10:19-0400 Body weight 73.48 kg Izaiah Pocos DO Work Phone: [facility] 05-15-2023 10:15-0400 Body height 160.02 cm Silvia Morris Other [facility] Other 05-15-2023 10:15-0400 Body mass index (BMI) [Ratio] 28.55 kg/m2 Silvia Alexandra Other [facility] Other 05-15-2023 10:15-0400 Body temperature 98.4 [degF] Silvia Alexandra Other [facility] Other 05-15-2023 10:15-0400 Body weight 73.12 kg Silvia Castellonmond Other [facility] Other 05-15-2023 10:15-0400 Diastolic blood pressure 80 mm[Hg] Silvia Morris Other [facility] Other 05-15-2023 10:15-0400 Respiratory rate 18 /min Silvia Alexandra Other [facility] Other 05-15-2023 10:15-0400 SaO2% (BldA) [Mass fraction] 95 % Silvia Morris Other [facility] Other 05-15-2023 10:15-0400 Systolic blood pressure 110 mm[Hg] Silvia Morris Other [employer] Other Encounters Encounter Date Encounter Type Care Provider Facility Start: 2025 ambulatory PARK RECREATION MANAGER Gwen Torres Located Within [facility] ity:GARY Harman Start: 10-25-2024 End: 10-25-2024 Office outpatient visit 15 minutes Renee Hollingsworth DO Work Phone: [facility] Comment on above: Eyelid lesion (Prima ry Dx); Hemorrhage, eyelid Start: 10-25-2024 End: 10-25-2024 ambulatory RENEE HOLLINGSWORTH Not Available Start: 10-25-2024 End: 10-25-2024 Bamboo flowsheet Renee Hollingsworth DO Work Phone: [facility] Start: 10-25-2024 End: 10-25-2024 Bamboo flowsheet Renee Hollingsworth DO Work Phone: [facility] Start: 04-18-2024 End: 04-18-2024 Refill Renee Hollingsworth DO Work Phone: [facility] Comment on above: Age-related nuclear cataract of both eyes (Primary Dx) Start: 04-01-2024 End: 04-01-2024 Bamboo flowsheet Izaiah Levine DO Work Phone: [facility] Start: 04-01-2024 End: 04-01-2024 Bamboo flowsheet Izaiah Levine DO Work Phone: [facility] Start: 04-01-2024 End: 04-01-2024 Patient encounter procedure Izaiah Petersen Pocos DO Work Phone: [facility] Comment on above: Nontraumatic complet e tear of right rotator cuff (Primary Dx); Adhesive capsulitis of right shoulder Start: 04-01-2024 End: 04-01-2024 ambulatory IZAIAH LEVINE Not Available Start: 03-10-2024 End: 03-10-2024 ambulatory PARK RECREATION MANAGER Gwen Torers Facility:[facility] Iram diaz Start: 02-25-2024 End: 02-25-2024 ambulatory RENEE HOLLINGSWORTH Not Available Start: 02-18-2024 End: 02-18-2024 ambulatory PARK RECREATION MANAGER Gwen Torres Facility:[facility] diaz Start: 02-08-2024 End: 02-09-2024 ambulatory CHELSY MAYNARD Not Available Start: 02-04-2024 End: 02-04-2024 ambulatory ANTONELLA CHADWICK Not Available Start: 02-02-2024 End: 02-02-2024 ambulatory SHAKIRA ORONA Not Available Start: 01-28-2024 End: 01-28-2024 ambulatory PAIGEMARGOTH VERA Not Available Start: 01-28-2024 End: 01-28-2024 ambulatory PARK RECREATION MANAGER Gwen Torres Facility: [facility] diaz Start: 01-25-2024 End: 01-26-2024 ambulatory HUSSEIN Cifuentes KATMARLO Not Available Start: 01-22-2024 ambulatory PARK RECREATION MANAGER Gwen Torres Facilit y:[facility] Start: 01-14-2024 End: 01-14-2024 ambulatory SHAKIRA SCHOFIELDYER Not Available Start: 01-14-2024 End: 01-14-2024 ambulatory SHAKIRA Franco HEMEYER Not Available Start: 12-31-2023 End: 12-31-2023 ambulatory SHAKIRA Franco HEMEYER Not Available Start: 12-17-2023 End: 12-17-2023 ambulatory SHAKIRA Franco HEMEYER Not Available Start: 05-15-2023 End: 05-15-2023 ambulatory Silvia Morris Other [facility] Other Start: 05-15-2023 Office outpatient ne w 20 minutes Silvia Morris [facility] Start: 11-29-2021 End: 11-29-2021 Patient encounter procedure MD Shakira Orona [facility] Start: 04-15-2021 End: 04-16-[address] SHAKIRA ORONA Facility: Start: 11-01-2018 End: 11-02-2018 Patient encounter procedure DEFAULT PHYSICIAN Facility:[facility] Procedures Date Procedure Procedure Detail Performing Clinician Start: 11-29-2021 Screening mammograph y of bilateral breasts MD Shakira Orona Work Phone: Start: 05-23-2019 H/O: tubal ligation History of tubal ligation Izaiah Levine DO Work Phone: Plan of Treatment Date Care Activity Detail Author Start: 03-20-2025 Influenza vaccination Influenz a Vaccine (Season Ended) [facility] Start: 12-30-2024 Medicare Annual Well ness (AWV) Medicare Annual Wellness (AWV) [facility] Start: 10-25-2024 End: 10-25-2024 Patient encounter procedure 10/25/2024 2:45 PM EDT Office Visit [facility] [address] [place] [id number] Renee Hollingsworth, DO [address] [place] [address] Arrived [facility] Comment on above: Arrived Start: 05-26-2024 End: 05-26-2024 Patient encounter procedure 05/26/2024 8:00 AM EST Procedure Visit [facility] Renee Hollingsworth DO [address] [place] [address] [facility] Start: 04-21-2024 End: 04-21-2024 Patient encounter procedure 04/21/2024 8:00 AM EDT Procedure Visit [facility] Renee Hollingsworth DO [address] [place] [address] [facility] Start: 04-01-2024 End: 04-01-2024 Patient encounter procedure 04/01/2024 10:30 AM EDT Office Visit [facility] [address] [place] [phone] Izaiah Levine, DO [address] [place] [address] Arrived [facility] Comment on above: Arrived Start: 03-20-2024 Influenza vaccination Influenza Vacc ine (#1) [facility] Immunizations Immunization Date Immunization Notes Care Provider Fa cility 05-29-[address] 12 Years And Older Izaiah Levine DO Work Phone: [facility] 09-22-2020 Moderna SARS-CoV-2 Vaccination Izaiah Pocfidel DO Work Phone: [facility] 04-18-2008 hepatitis A and hepa titis B vaccine Izaiah Pocfidel DO Work Phone: [facility] 11-18-2007 hepatitis A and hepa titis B vaccine Izaiah Pocfidel DO Work Phone: [facility] 10-14-2007 hepatitis A and hepa titis B vaccine Izaiah Pocos DO Work Phone: [facility] 10-14-2007 poliovirus vaccine, inactivated Izaiah Levine DO Work Phone: [facility] 10-14-2007 tetanus toxoid, redu yves diphtheria toxoid, and acellular pertussis vaccine, adsorbed Izaiah Levine DO Work Phone: [facility] 10-14-2007 typhoid capsular polysaccharide vaccine Izaiah Pocfidel DO Work Phone: [facility] Payers Date Payer Category Payer Medicare [employer] UHC MEDICARE ADVANTAGE [id number] 2022-Present [address] [address] [place] [address] [id number] 2022 Medicare (Managed Care) [facility] [id number] 2022 Medicare [id number] 1959 Self-pay 1950 Unknown [id number] 2.16.840.1.752445.3.579.2. 647 1948 Unknown [id number] 2.16.840.1.173071.3.579.2. 1259 1948 Unknown [id number] 2.16.840.1.519242.3.579.2. 125 1948 Unknown [id number] 2.16.840.1.984501.3.579.2. 125 1948 Unknown [id number] 2.16.840.1.614366.3.579.2. 125 1948 Unknown [id number] 2.16.840.1.700796.3.579.2. 125 1948 Unknown [id number] 2.16.840.1.566607.3.579.2. 125 1948 Unknown [id number] 2.16.840.1.313032.3.579.2. 1259 1948 Unknown [id number] 2.16.840.1.135469.3.579.2. 125 1948 Unknown [id number] 2.16.840.1.811172.3.579.2. 1259 1948 Unknown [id number] 2.16.840.1.435531.3.579.2. 125 1948 Unknown [id number] 2.16.840.1.316145.3.579.2. 1259 1948 Unknown [id number] 2.16.840.1.925421.3.579.2. 1259 1948 Unknown [id number] 2.16.840.1.599853.3.579.2. 727 1948 Unknown [id number] 2.0.1.769181.3.579.2. 1948 Unknown [id number] 2.0.1.513072.3.579.2. 72 1948 Unknown [id number] 2.0.1.461836.3.579.2. 1948 Unknown [id number] 2..1.557096.3.579.2. Medicare Medicare [id number] Medicare [id number] Private Health Insurance [employer] [facility] 1 [id number] Unknown Unknown [id number] 2..1.566177.3.579.2. 593 Unknown Barbara BC/BS [id number] Social History Date Type Detail Facility Tobacco smoking status NHIS Unknown if ever smoked [facility] Work Phone: Start: 1950 Sex Assigned At Female F [facility] Start: 01-08-2023 End: 12-31-2023 Sex Assigned At [place] [employer] Other Start: 01-06-2023 Tobacco smoking status NHIS Never smoked tobacco [facility] Start: 01-06-2023 Tobacco use and exposure Smokeless tobacco non-user [facility] Start: 02-25-2024 End: 10-25-2024 Alcoholic beverage intake Ex-drinker (finding) [facility] Start: 01-08-2023 End: 12-31-2023 History of Social function [facility] How often to you hav e a drink containing alcohol? Never [facility] How many standard drinks containing alcohol do you have on a typical day? Patient does not drink [facility] Start: 1950 Sex assigned at Not on file [facility] NEGATED: Highlighted rowStart: NINF History of tobacco use Passive smoker [facility] History of Present illness Narrative 10-25-2024 Renee Hollingsworth DO - 10/25/2024 2:45 PM EDT Note Date & Type Note Facility 10-25-2024 History of Presen t illness Narrative Images from the original note were not included. Assessment/Plan Diagnoses and all orders for this visit: Eyelid lesion - Ms. Tucker has a small subdermal darker lesion beneath a fold of skin from the upper lid, nasal canthus. This looks to be vascular in nature and likely has been there for some time. Advised observation. If it gets bigger, more noticeable or irritated, she knows to call. documented in this encounter [facility] History of Present illness Narrative 04-01-2024 Faiza Obrien - 04/01/2024 10:30 AM EDT Note Date & Type Note Facility 04-01-2024 History of Presen t illness Narrative Images from the original note were not included. Ana Rosa Tucker is a 74 y.o. female presents with chief complaint of right shoulder pain. HPI: Ana Rosa is a 74-year-old white female who presents complaining of right shoulder pain and difficulty. This has been escalating since December of 2023. She did have physical therapy at [facility]. She had five sessions, was unable to do it. The therapist there recommended she has had imaging. The nurse practitioner thus ordered imaging and the patient is here today to review that MRI. She denies any numbness or tingling. SUBJECTIVE: MEDICATIONS: Current Outpatient Medications Medication Instructions aspirin 81 mg, Oral, 3 times weekly calcium citrate 250 mg, Oral, 3 times daily cholecalciferol (VITAMIN D-3) 10,000 Units, Oral, Daily ergocalciferol (Vitamin D2) 1.25 MG (40817 UT) capsule HYDROcodone-acetaminophen ([place]) 5-325 MG tablet Oral levothyroxine (SYNTHROID, LEVOXYL) 88 mcg, Oral, Daily before breakfast Lysine 500 MG capsule Every 24 hours meloxicam (MOBIC) 15 mg, Oral Multiple Vitamin (Multi Vitamin) tablet Every 24 hours ALLERGIES: Allergies Allergen Reactions Famciclovir Penicillin G Swelling SURGICAL HISTORY: Past Surgical History: Procedure Laterality Date CHOLECYSTECTOMY 2008 COLONOSCOPY 2013 EGD 2013 gastritis SPINE SURGERY 2000 l4/l5 Dr Sidhu TONSILLECTOMY 1964 TUBAL LIGATION 1978 FAMILY HISTORY: Family History Problem Relation Name Age of Onset Diabetes Mother Heart disease Mother Diabetes Father Heart disease Father Cancer Father SOCIAL HISTORY: Social History Tobacco Use Smoking status: Never Passive exposure: Never Smokeless tobacco: Never Vaping Use Vaping status: Never Used Substance Use Topics Alcohol use: Not Currently Drug use: Never Depression: Not at risk (12/31/2023) PHQ-2 PHQ-2 Score: 0 REVIEW OF SYMPTOMS: The review of systems, history and current medications list are all reviewed today. OBJECTIVE: Visit Vitals Ht 5' 3 Wt 162 lb BMI 28.70 kg/m OB Status Postmenopausal Smoking Status Never BSA 1.81 m Physical Exam Her orthopedic exam here today reveals obvious adhesive component with flexion abduction only to around 85 degrees, severe pain associated with that. Her neurocirculatory status is overall grossly intact. Her cuff strength is painful when they do stress that but she does have some strength against resistance here today. Examination of the contralateral left shoulder reveals arc of motion without difficulty. Cuff strength is excellent. Neurocirculatory status is intact. Examination of the neck reveals range of motion without difficulty. Biceps, triceps, and brachial radialis reflexes are 2/4 and symmetric. X-rays done 01-14-2024 shows some significant acromioclavicular joint osteoarthritis. This is moderate. The acromiohumeral interval is well maintained. She does have a small calcification at the greater tuberosity insertion of the cuff. No evidence of fracture or other osseous abnormality. MRI 02-19-2024 does show significant rotator cuff tearing of the supraspinatus with some minimal retraction. There is no other involvement. No labral pathology. No tendinous pathology. No evidence of fracture or other osseous abnormality. She does have the acromioclavicular joint osteoarthritis with some surrounding inflammation. ASSESSMENT AND PLAN: Assessment/Plan Right shoulder rotator cuff tear; atraumatic with adhesive capsulitis. The findings are discussed here today. We did discuss the fact that surgical intervention would be the treatment for rotator cuff tear. She is quite taken back by this. We did explain that MRI is a study to guide decision making and treatment plan. The biggest question with MRI is what we do with the information. She really does not want anything surgical. She does question whether her rotator cuff will heal on its own. We did explain that that is not the case. If she does have a symptomatic rotator cuff tear, the only mode of treatment would be that of surgical intervention. We did discuss the fact that she does have the adhesive component. The treatment for this would be therapy, therapy and more therapy. Her therapists have recommended imaging. This is something that ultimately she would like to think about. We did recommend she try the Meloxicam which she has yet to take. She will continue the home exercise program. We did offer corticosteroid injection which she does decline here today. If she would like to move forward with that, she may simply call and let us know. If she does want to pursue surgical intervention, we would need to define preoperative risk and we will need to define logistics and timing. She does voice understanding of this. All of her questions are otherwise answered this day. She is discharged in stable condition here today. Follow up letter sent to Gwen Torres. documented in this encounter [facility] Clinical Note 03-10-2024 Note Date & Type [...] risk of getting burned. Medicines ? Take pkef-ili-[id number] and prescription medicines only as told by your health care provider. ? Ask your health care provider if the medicine prescribed to you: ? Requires you to avoid driving or using machinery. ? Can cause constipation. You may need to take actions to prevent or treat constipation, such as: ? Drink enough fluid to keep your urine pale yellow. ? Take pyiu-jpu-rnnoiei or prescription medicines. ? Eat foods that [...] activities are safe for you. ? Do ifkxm-uv-cqealk exercises only as told by your health [...] right away if: (more content not included)... [facility] Evaluation note 05-15-2023 Note Date & Type [...] days. Patient reports she is leaving for [place] tomorrow and is concerned that she will be sick while she was gone. A Z-Steven was prescribed in case she needs it. Patient verbalizes understanding of this. [facility] Other Evaluation note Note Date & Type Note Facility Evaluation note [facility] Evaluation note Note Date & Type Note Facility Evaluation note Diagnosis Nontraumatic complete tear of right rotator cuff- Primary Adhesive capsulitis of right shoulder documented in this encounter [facility] Evaluation note Note Date & Type Note Facility Evaluation note Diagnosis Age-related nuclear cataract of both eyes- Primary documented in this encounter [facility] Healthcare Evaluation note Note Date & Type Note Facility Evaluation note Diagnosis Eyelid lesion- Primary Unspecified disorder of eyelid Hemorrhage, eyelid Hemorrhage of eyelid documented in this encounter [facility] History general Narrative - Reported Note Date & Type Note Facility History general Narrative - Reported Type Medical History Gastritis and gastro duodenitis, unspecified, without mention of hemorrhage Medical History Abdominal pain Surgical History CHOLECYSTECTOMY Surgical History TUBAL LIGATION Hospitalization History No Hospitalization histo ry information [place] Other Summary Purpose Family History No Family [...] and content) DATE CREATED AUTHOR 11/02/2018 [facility] DATE CREATED AUTHOR AUTHOR'S ORGANIZ ATION 01/27/2019 [facility] DATE CREATED AUTHOR AUTHOR'S ORGANIZ ATION 04/15/2021 [facility] DATE CREATED AUTHOR AUTHOR'S ORGANIZ ATION 11/22/2021 [facility] DATE CREATED AUTHOR AUTHOR'S ORGANIZ ATION 12/14/2021 [facility] DATE CREATED AUTHOR AUTHOR'S ORGANIZ ATION 10/27/2024 [facility] DATE CREATED AUTHOR AUTHOR'S ORGANIZ ATION 12/23/2024 Haresh Dias [facility] Care Teams (unrecognized sec tion and [...] FOR VISIT (unrecogniz ed section and content) Reason Comments Pain Reason Onset Date Comments Med Refill 04/18/2024 Reason Comments Spot On skin FOR RECORDS PERTAINING TO PATIENTS WHO ARE [...] BE BASED ON THE PRIMARY CLINICAL RECORDS. [employer] provides no warranty or guarantee of the accuracy or completeness of information in this document.
== END 2025-01-12 14:10 | disposition home or self-care (01) ==
PROVIDERS: PCP Nurse Practitioner; Visit Provider Nurse Practitioner
DX: E03.9 Hypothyroidism, unspecified (principal); I10 Essential (primary) hypertension; M19.90 Unspecified osteoarthritis, unspecified site; Z78.9 Other specified health status; M25.552 Pain in left hip; Z68.30 Body mass index [BMI] 30.0-30.9, adult
CPT/HCPCS: 73502

== ENCOUNTER 2025-05-25 09:40 | Outpatient (OUT) | payer MEDICARE, SELFPAY ==
--- OUTSIDE RECORDS SUMMARY | 2025-05-25 09:53 | XMS_ITS | Clinical Summary ---
Author Organization [facility] Address [address], [address] [place] [address] Care Team Providers Care Bessemer Bottom Maker Name Role Phone Ernesto Vasquez MD Primary Care Provider Allergies Active AllergyReactionsCriticalityNoted QhckRyoisivgWnbxsrimwnx28/10/2020 Xwwabowxrvd64/10/2020 Medications MedicationSigDispense QuantityRefillsLast FilledStart DateEnd DateStatus levothyroxine (SYNTHROID) 88 MCG tablet Take 88 mcg by mouth DailyActive aspirin 81 MG tablet Take 81 mg by mouth dailyActive Cholecalciferol (VITAMIN D3) 1.25 MG (97110 UT) CAPS Take 10,000 Units by mouthActive calcium carbonate (OSCAL) 500 MG TABS tablet Take 500 mg by mouth dailyActive Family History Medical HistoryRelationNameCommentsHeart SurgeryFatherRelationNameStatusComments FatherDeceasedMotherDeceased Social History Tobacco UseTypesPacks/DayYears UsedDateSmoking Tobacco: NeverSmokeless Tobacco: NeverAlcohol UseStandard Drinks/WeekCommentsNever0 (1 standard drink = 0.6 oz pure alcohol)AUDIT-CAnswerDate RecordedFrequency of Alcohol ConsumptionNever 09/27/2019Average Number of DrinksNot on file09/27/2019Frequency of Binge DrinkingNot on file09/27/2019CommentsUnknownSex and Gender Information ValueDate RecordedSex Assigned at BirthNot on fileLegal AycWctfms74/10/2013 12:09 PM ESTGender IdentityNot on fileSexual OrientationNot on file Last Filed Vital Signs Vital SignReadingTime TakenCommentsBlood Lovnkfzq593/8003 9:48 AM EDT Bheno075209/27/2019 9:25 AM EDTTemperature--Respiratory Rate--Oxygen Svubscbjww95% 09/27/2019 9:25 AM EDTInhaled Oxygen Concentration--Myyosn69.3 kg (166 lb) 09/27/2019 9:25 AM EDTHeight--Body Mass Index-- Plan of Treatment Not on file Insurance Care Teams Team MemberRelationshipSpecialtyStart DateEnd Ernesto Vasquez MD PCP - Vfokqfh07/3/19
--- OUTSIDE RECORDS SUMMARY | 2025-05-25 09:53 | XMS_ITS | Encounter Summary ---
Author Organization [facility] Address [address] [place] [address] Care Team Providers Care [employer] Engineer Name Role Phone Ernesto Orona MD Primary Care Provider + [phone] Encounter Details DateTypeDepartmentCare Team (Latest Contact Info)Fiufqtzecnk45/18/2024Clinisync Result Encounter [facility] Unsolicited Ernesto Orona MD [address] [place] [address] Social History Tobacco UseTypesPacks/DayYears UsedDateSmoking Tobacco: NeverPassive Smoke Exposure: NeverSmokeless Tobacco: NeverAlcohol UseStandard Drinks/WeekComments Not Currently0 (1 standard drink = 0.6 oz pure alcohol)AUDIT-CAnswerDate RecordedQ1: How often do you have a drink containing alcohol?Never01/08/2023Q2: How many drinks containing alcohol do you have on a typical day when you are drinking?Patient does not drink01/08/2023Q3: How often do you have six or more drinks on one occasion?Never3PHQ-2AnswerDate RecordedPatient Health Questionnaire-2 [id number] and Gender Information ValueDate RecordedSex Assigned at BirthNot on fileLegal MgfVrvorf60/15/2023 7:02 PM EDTGender IdentityNot on fileSexual OrientationNot on filedocumented as of this encounter Plan of Treatment Not on file documented as of this encounter Procedures Procedure NamePriorityDate/TimeAssociated DiagnosisCommentsXR DEXA AXIAL GJLBLPTP65/18/2024 12:21 PM EDT documented in this encounter Results * XR DEXA AXIAL SKELETON (01/05/2024 12:21 PM EDT)Anatomical RegionLaterality ModalityOtherSpecimen (Source)Anatomical Location / LateralityCollection Method / VolumeCollection TimeReceived Time01/05/2024 12:21 PM EDT Narrative 01/05/2024 12:23 PM EDT [facility] ?[address] ? [place] [address] ?XRay Report ? Signed ? Patient: THEO QUEEN F ?MR#: [id number] ?? : 1950 ?Acct:[id number] ?? Age/Sex: 73 / F ?ADM Date: 01/05/24 ?? Loc: RAD ? Attending Dr: ERNESTO ORONA ? Ordering Physician: ERNESTO ORONA ?? Date of Service: 01/05/24 ?? Procedure(s): XR DEXA axial skeleton ?? Accession Number(s): [id number] ? cc: ERNESTO ORONA ? [facility] ? [address] ? [place] [address] ? Patient Name: ?? THEO QUEEN ? MRN: [facility]:[id number] ? date: 1950 ?Sex: F ?? Assigned Patient Location: RAD ?? Current Patient Location: RAD ?? Accession/Order Number: [id number] ?? Exam Date: 01/05/2024 ??10:20 ?Report Date: 01/05/2024 ??12:21 ? At the request of: ?? ERNESTO ??YEYO ? Procedure: ??XR DEXA axial skeleton ? EXAMINATION: XR DEXA axial skeleton ? HISTORY: Osteopenia Lumbar Spine ? COMPARISON: DEXA bone densitometry 02/02/2009 ? TECHNIQUE: Dual-energy X-ray absorptiometry (DXA) was performed. ? FINDINGS: ? HIP ANALYSIS: ?? Lowest bone mineral density is within the right femoral neck, 0.73 g/cm2. ?? T-score (standard deviation relative to young adult mean): -1.8 . ?? -6.7% change since prior study. ? XR/XR DEXA axial skeleton ?? IMPRESSION: ? World [employer] Organization Classification: Osteopenia - Moderate Fracture Risk ?? FRAX: ? Electronically authenticated by: CHANDRAKANT ??NICK ?? Date: 01/05/2024 ??12:21 ? Dictated By: ?Chandrakant Suarez M.D. ? Signed By: ?01/05/24 1223 ? DD/ 1221 ? TD/TT: ? Hot Strip Mill Inspector: Procedure Note Radiology, Radiologist, - 01/05/2024 [place] [address] XRay Report Signed Patient: THEO QUEEN FMR#: [id number] : 1950cct:[id number] Age/Sex: 73 / FADM Date: 01/05/24 Loc: RAD Attending Dr: ERNESTO ORONA Ordering Physician: ERNESTO ORONA Date of Service: 01/05/24 Procedure(s): XR DEXA axial skeleton Accession Number(s): [id number] cc: ERNESTO ORONA [place] [address] Patient Name: THEO QUEEN MRN: [id number] date: 1950 Sex: F Assigned Patient Location: [facility] Current Patient Location: [facility] Accession/Order Number: [id number] Exam Date: 01/05/2024 10:20 Report Date: 01/05/2024 [...] M.D. Signed By:01/05/24 1223 DD/ 1221 TD/TT: Hot Strip Mill Inspector: Authorizing ProviderResult TypeResult StatusEdmaico Orona MDCLINISYNC IMAGING Final Result documented in this encounter Visit Diagnoses Not on filedocumented in this encounter Additional Health Concerns AssessmentNoted TimePHQ-9 Depression Total Score: 10:00 AM EDT documented as of this encounter Care Teams Team MemberRelationshipSpecialtyStart DateEnd Date Ernesto Orona MD PCP - GeneralFamily Medicine///07/12documented as of this encounter
--- OUTSIDE RECORDS SUMMARY | 2025-05-25 09:53 | XMS_ITS | Clinical Summary ---
Author Organization [facility] Address [address] [place] [address] Care Team Providers Care Consumer Electronics Merchandiser Name Role Phone Unavailable Primary Care Provider Unavailabl e Social History Tobacco UseTypesPacks/DayYears UsedDateSmoking Tobacco: Never Assessed CommentsUnknownSex and Gender InformationValueDate RecordedSex Assigned at Not on fileLegal KzoFsqvin72/29/2022 9:35 PM EDTGender IdentityNot on fileSexual OrientationNot on file Last Filed Vital Signs Vital SignReadingTime TakenCommentsBlood Ghloojuy499/7506 10:05 AM EDT Pulse--Temperature--Respiratory Rate--Oxygen Ifyxfzuvsx65%12/30/2018 10:05 AM EDTInhaled Oxygen Concentration--Gskoxg39.5 kg (162 lb)12/30/2018 10:05 AM EDT Bclwmg947 cm (5' 3 )12/30/2018 9:52 AM EDTBody Mass Index28.706 9:52 AM EDT Plan of Treatment Not on file
--- OUTSIDE RECORDS SUMMARY | 2025-05-25 09:53 | XMS_ITS | Clinical Summary ---
Author Organization [facility] Address [address] [place] [address] Care Team Providers Care [employer]lik[employer] Developer Name Role Phone Unavailable Primary Care Provider Unavailabl e Allergies Active AllergyReactionsCriticalityNoted QaouOlypcpmiJvmxzwffrto48/20/2023 Penicillin WItnvkpok00/15/2023 Medications MedicationSigDispense QuantityRefillsLast FilledStart DateEnd DateStatus Lysine 500 MG capsule 1 (one) time each day at the same time.Active aspirin 81 MG EC tablet Take 81 mg by mouth 3 (three) times a week.Active Multiple Vitamin (Multi Vitamin) tablet 1 (one) time each day at the same time.Active cholecalciferol (Vitamin D-3) 1.25 MG (65403 UT) capsule Take 10,000 Units by mouth in the morning.Active levothyroxine (Synthroid, Levoxyl) 88 MCG tablet Indications:Acquired hypothyroidismTake 1 tablet (88 mcg) by mouth in the morning. Take before meals. 90 tablet ctive calcium citrate 250 MG tablet Indications:Osteopenia of lumbar spineTake 1 tablet (250 mg) by mouth in the morning and 1 tablet (250 mg) in the evening and 1 tablet (250 mg) before bedtime.01/05/2024ctive Additional Information Patient taking differently:250 mg Oral2 times weekly, Reported on 01/14/2024 ergocalciferol (Vitamin D2) 1.25 MG (01423 UT) capsule 01/28/2024ctive HYDROcodone-acetaminophen ([place]) 5-325 MG tablet Take by mouth03/10/2024ctive meloxicam (Mobic) 15 MG tablet Take 15 mg by mouth03/10/2024ctive Active Problems ProblemNoted DateDiagnosed DateEyelid udnlfj5210/25/2024Menopausal and female climacteric nrlweo8112/17/2023Osteopenia of lumbar spine03/12/2023cquired cwegoschajvwbn06/15/2023hronic fatigue pndgqdif11/15/2023hronic kidney disease (CKD), stage II (mild)01/01/2023Mixed vxdvrljvodcxnb70/15/2023Nonalcoholic fatty liver disease without nonalcoholic steatohepatitis (SYKES)01/01/2023Osteopenia of both hips01/01/2023Overweight (BMI 25.0-29.9)01/01/2023Seasonal allergic rhinitis due to btyxxs7201/01/2023Supraventricular fshsjhtntpi46/15/2023 Ventricular premature ctobnerrithw96/15/2023Vitamin D jtfkewiijn69/15/2023 History of tubal pdvsrunj52/04/2019 Resolved Problems ProblemNoted DateDiagnosed DateResolved DateAge-related nuclear cataract of both eyes/ardiac owfeenylkt20Irregular heart beatOther specified disorders of bone density and structure, right thigh9379Jinvzpoaxsqsdzmq23/15/202306/13/2024Fatty liver Immunizations ImmunizationAdministration DatesNext DueHep A / Hep B004/18/2008,11/18/2007, 10/14/2007IPV10/14/2007Moderna SARS-CoV-2 Cyncjjdqmiw90/06/2021fizer Bivalent Booster 12 Years And Older05/29/2022Tdap10/14/2007Typhoid, ViCPs10/14/2007 Family History Medical HistoryRelationNameCommentsCancerFatherDiabetesFatherHeart diseaseFather DiabetesMotherHeart diseaseMotherRelationNameStatusCommentsBrotherAliveFather DeceasedMotherDeceasedSisterAliveSonAlive Social History Tobacco UseTypesPacks/DayYears UsedDateSmoking Tobacco: NeverPassive Smoke Exposure: NeverSmokeless Tobacco: Never Tobacco Cessation:Counseling Given: Yes Alcohol UseStandard Drinks/WeekCommentsNot Currently0 (1 standard drink = 0.6 oz pure alcohol)AUDIT-CAnswerDate RecordedQ1: How often do you have a drink containing alcohol?Never01/08/2023Q2: How many drinks containing alcohol do you have on a typical day when you are drinking?Patient does not drink01/08/2023Q3: How often do you have six or more drinks on one occasion?Never01/08/2023HQ-2 AnswerDate RecordedPatient Health Questionnaire-2 Aghkx613 CommentsNoSex and Gender InformationValueDate RecordedSex Assigned at BirthNot on fileLegal GwxAbwava68/15/2023 7:02 PM EDTGender IdentityNot on fileSexual OrientationNot on file Last Filed Vital Signs Vital SignReadingTime TakenCommentsBlood Rdfjtuzs959/70012/31/2023 10:20 AM EDT Uklsb293412/31/2023 10:20 AM EDTTemperature--Respiratory Rate--Oxygen Saturation 97%12/31/2023 10:20 AM EDTInhaled Oxygen Concentration--Vujozb66.5 kg (162 lb) 04/01/2024 10:19 AM IDLPooewn185 cm (5' 3 )04/01/2024 10:19 AM EDTBody Mass Index28.709 10:19 AM EDT Plan of Treatment [place] [address]
--- OUTSIDE RECORDS SUMMARY | 2025-05-25 09:58 | XMS_ITS | CCD ---
Author Organization [facility] CliniSyut Care Team Providers Care Percussion Teacher Name Role Phone PHYSICIAN, DEFAULT Admitting Unavailable PHYSICIAN, DEFAULT Attending Unavailable YEYO, DR ROSENBERG Attending Unavailable YEYO, DR ROSENBERG Consulting Unavailable YEYO, DR ROSENBERG Admitting Unavailable MD Shakira Orona Primary Care Provider MD Shakira Orona Referring Provider [phone] Self, Referral Attending Provider Unavailable Silvia Morris Unavailable Unavailable Primary Care Provider UnavailSHAKIRA Conrad Attending Unavailable SHAKIRA ORONA Attending Unavailable SHAKIRA ORONA Attending Unavailable SHAKIRA ORONA Referring Unavailable HUSSEIN SCHUSTER Attending Unavailable SHAKIRA ORONA Referring Unavailable PAIGE VERA Attending Unavailable SHAKIRA ORONA Referring Unavailable HEMESHAKIRA ELY Referring Unavailable ANTONELLA CHADWICK Attending Unavailable ANTONELLA CHADWICK Attending Unavailable HEMESHAKIRA ELY Referring Unavailable CHELSY MAYNARD Attending Unavailable SHAKIRA ORONA Referring Unavailable RENEE HOLLINGSWORTH Attending Unavailable RENETTA ARMIJO Referring Unavailable IZAIAH LEVINE Attending Unavailable GWEN SHELTON Referring Unavailable RENEE HOLLINGSWORTH Attending Unavailable BrianGwen ramirez Primary Care Physician Gwen Shelton Attending Unavailable BrianGwen Admitting Unavailable BrianGwen Attending Unavailable BrianGwen Attending Unavailable BrianGwen Attending Unavailable BrianGwen Attending Unavailable BrianGwen Attending Unavailable BrianGwen Attending Unavailable BrianGwen Attending Unavailable BrianGwen Attending Unavailable Self, Referral Attending Provider Unavailable Brian CORK INSULATION SETTER-CGwen Primary Care Provider Brian CORK INSULATION SETTER-CGwen Referring Provider Gwen Shelton Referring Unavailable Gwne Shelton Primary Care Unavailable Self, Referral Attending Unavailable Self, Referral Admitting Unavailable Shakira Orona MD Primary Care Provider Wilmer Sánchez Attending Unavailable Rowena Ron Attending Unavailable BobRowena moe Attending Unavailable BobRowena moe Attending Unavailable Brian, CITIZENSHIP TEACHER Gwen L Attending Unavailable Brian, CITIZENSHIP TEACHER Gwen Spivey Admitting Unavailable Allergies Allergy ClassificationReported Allergen(s)Allergy TypeDate of OnsetReaction(s) Facility (1 source)Penicillins (Antibiotic)[facility] Other (2 sources)FAVIORPropensity to adverse msabgzygg37-22-7611VcrwlpoGwcyesdcsACMC [facility] System (7 sources)famciclovirDrug Ojqtyxm43-57-4736[facility] (7 sources)Penicillin GDrug Kcscqio67-13-2291AsrcttzdDJWX Healthcare (3 sources)Penicillin; Translations: [penicillin]Drug AllergySwelling (finding) [facility] Ghazal (2 sources)No Known Medication Allergies; Translations: [No Known Medication Allergies]Propensity to adverse reactions (disorder)[facility] (1 source)PenicillinsAllergy to ihobveuro26-43-3213OvoydysjhThe [facility] Medications Current Medications MedicationDrug Class(es)DatesSig (Normalized)Sig (Original)acetaminophen 325 mg / HYDROcodone bitartrate 5 mg oral tablet (6 sources)Opioid AgonistStart: 78-16-7595ANAXBxeybxr-acetaminophen ([place]) 5- 325 MG tablet Take by mouth 03/10/2024 Activeaspirin 81 mg chewable tablet (8 sources)Platelet Aggregation Inhibitor, Nonsteroidal Anti-inflammatory Drug Start: 45-06-0190dynw 1 tablet by mouth once dailyaspirin 81 mg Chew Tab 81 mg = 1 tab(s), Oral, Daily, # 30 tab(s), Refills(s) 0 Start Date: 01/28/24Status: Ordered Quantity: 30.0 Unit: tab(s) Repeat number: 1take 1 tablet by mouth three times weeklyaspirin 81 MG EC tablet Take 81 mg by mouth 3 (three) times a week. Activeazithromycin 250 mg oral tablet (1 source)Macrolide AntimicrobialStart: 30-31-2578Otwlupewqywy 250 MG 2 tablet on the first day, then 1 tablet daily for 4 days Orally Once a day for5 days Apr, Activecalcium carbonate 1500 mg oral tablet (1 source)Start: 82-00-6124lhxt 1 tablet by mouth twice dailycalcium (as carbonate) 600 mg oral tablet 600 mg = 1 tab(s), Oral, BID, # 180 tab(s), Refills(s) 1,Pharmacy: [facility] Delivery, 158, cm, 01/28/24 9:24:00 EDT, Height/Length Dosing, 75.3, kg, 01/28/24 9:24:00 EDT, Weight Dosing Start Date: 02/04/24 Status: Ordered Quantity: 180.0 Unit: tab(s) Repeat number: 2calcium citrate 1040 mg oral tablet (7 sources)Start: 25-41-0338aczh 1 tablet by mouth in the morning, then take 1 tablet by mouth in the evening, then take 1 tablet by mouth at bedtimecalcium citrate 250 MG tablet Indications: Osteopenia of lumbar spine Take 1 tablet (250 mg) by mouth in the morning and 1 tablet (250 mg) in the evening and 1 tablet (250 mg) before bedtime. 01/05/2024 Activecholecalciferol 1.25 mg oral capsule (7 sources)Vitamin Dtake 1 capsule by mouth in the morningcholecalciferol (Vitamin D-3) 1.25 MG (21626 UT) capsule Take 10,000 Units by mouth in the morning.Activeergocalciferol 1.25 mg oral capsule (5 sources)Provitamin D2 CompoundStart: 39-23-2892jlnilmotntonzc (Vitamin D2) 1.25 MG (43338 UT) capsule 01/28/2024 Activeketorolac tromethamine 5 mg/ml ophthalmic solution (3 sources)Nonsteroidal Anti-inflammatory Drug, Cyclooxygenase InhibitorStart: 04-18-2024 End: 27-69-6435ibhy 1 drop(s) into the eye(s) in the morningketorolac (Acular) 0.5 % ophthalmic solution Indications: Age-related nuclear cataract of both eyes Administer 1 drop into affected eye(s) in the morning and 1 drop before bedtime. 5 mL 1 04/18/2024 05/18/2024 ActiveStart: 02-25-2024 End: 22-24-6186pjfo 1 drop(s) into the eye(s) in the morningketorolac (Acular) 0.5 % ophthalmic solution Indications: Age-related nuclear cataract of both eyes Administer 1 drop into affected eye(s) in the morning and 1 drop before bedtime. 5 mL 1 02/25/2024 04/01/2024 Expiredlevothyroxine sodium 0.088 mg oral tablet (9 sources)l-ThyroxineStart: 16-91-8753yphw 1 tablet by mouth once daily levothyroxine 88 mcg (0.088 mg) Tab 88 mcg = 1 tab(s), Oral, Daily, # 90 tab(s), Refills(s) 3, Pharmacy: [facility], 158, cm, 01/28/24 9:24:00 EDT, Height/Length Dosing, 75.3, kg, 01/28/24 9:24:00 EDT, Weight Dosing Start Date: 01/28/24 Status: Ordered Quantity: 90.0 Unit: tab(s) Repeat number: 4Start: 12-17-2023 End: 37-04-5300esjn 1 tablet by mouth before mealtimelevothyroxine (Synthroid, Levoxyl) 88 MCG tablet Indications: Acquired hypothyroidism Take 1 tablet(88 mcg) by mouth in the morning. Take before meals. 90 tablet 3 12/17/2023 Active take 1 tablet by mouth once daily in the morningLevothyroxine Sodium 100 MCG 1 tablet on an empty stomach in the morning Orally Once a day for 30 day(s) Active lysine 500 mg oral tablet (8 sources)Start: 56-76-9649krtx 1 tablet by mouth once dailylysine 500 mg oral tablet 500 mg = 1 tab(s), Oral, Daily, # 100 tab(s), Refills(s) 0 Start Date: 01/28/24 Status: Ordered Quantity: 100.0 Unit: tab(s) Repeat number: 1Lysine 500 MG capsule 1 (one) time each day at the same time. Activemeloxicam 15 mg oral tablet (6 sources)Nonsteroidal Anti-inflammatory DrugStart: 23-69-0507enuccbbrv (Mobic) 15 MG tablet Take 15 mg by mouth 03/10/2024 ActivemethylPREDNISolone 4 mg oral tablet (1 source)CorticosteroidStart: 81-61-9159Gydrpx 4 MG as directed Orally As Directed for 6 days Apr, ActiveMultiple Vitamin (Multi Vitamin) tablet (7 sources)Multiple Vitamin (Multi Vitamin) tablet 1 (one) time each day at the same time. Activeofloxacin 3 mg/ml ophthalmic solution (1 source)Quinolone AntimicrobialStart: 04-18-2024 End: 76-35-4281uoxl 1 drop(s) into the eye(s) five times dailyofloxacin (Ocuflox) 0.3 % ophthalmic solution Indications: Age-related nuclear cataract of both eyes Administer 1 drop into the right eye 5 (five) times a day for 1 day Starting 1 day before surgery,continue after surgery as directed 5 mL 1 04/18/2024 04/19/2024 ActiveprednisoLONE acetate 10 mg/ml ophthalmic suspension (1 source)CorticosteroidStart: 04-18-2024 End: 06-23-9563uoztnbjgZFPO acetate (Pred-Forte) 1 % ophthalmic suspension Indications: Age-related nuclear cataract of both eyes Administer 1 drop into both eyes in the morning and 1 drop at noon and 1 drop in theevening and 1 drop before bedtime. Do all this for 14 days. 5 mL 1 04/18/2024 05/02/2024 Active Vitamin D2 50,000 intl units (1.25 mg) oral capsule (1 source)Start: 05-72-6658yhkn 1 capsule by mouth every weekVitamin D2 50,000 intl units (1.25 mg) oral capsule See Instructions, TAKE 1 CAPSULE BY MOUTH WEEKLY, # 13 cap(s), Refills(s) 3, Pharmacy: [facility], 157, cm, 03/10/24 9:55:00 EDT, Height/Length Dosing, 74.1, kg, 03/10/24 9:55:00 EDT, Weight Dosing Start Date: 09/12/24 Status: Ordered Quantity: 13.0 Unit: cap(s) Repeat number: 1Vitamin D3 (1 source)Vitamin D3 Active Completed/Discontinued Medications MedicationDrug Class(es)DatesSig (Normalized)Sig (Original)dexlansoprazole 30 mg delayed release oral capsule (1 source)Proton Pump InhibitorStart: 03-76-3599ddqy 1 capsule by mouth every twenty-four hoursDexilant 30 MG 1 capsule Orally Once a day for 30 day(s) Oct, Not-Takingdicyclomine hydrochloride 20 mg oral tablet (1 source)AnticholinergicStart: 14-30-3554exib 1 tablet by mouth every twelve hoursDicyclomine HCl 20 mg 1 tablet Orally bid for 30 day(s) Apr, Not-Takinglansoprazole 15 mg delayed release oral capsule (1 source)Proton Pump InhibitorStart: 46-18-5311hjuu 1 capsule by mouth every twenty-four hoursLansoprazole 15 MG 1 capsule before a meal Orally Once a day for 30 day(s) Oct, Not-Takingpantoprazole (1 source)Proton Pump InhibitorPantoprazole Sodium Not-Taking Problems Active Problems Problem ClassificationProblemDateDocumented DateEpisodic/ChronicAbdominal pain (2 sources)Abdominal pain; Translations: [Generalized abdominal pain]Episodic Cardiac dysrhythmias (20 sources)Supraventricular tachycardia; Translations: [Supraventricular tachycardia]Onset: 01-01-2023 Resolved: 660644-70-2876GxolgyjYyiuokl on above:noted in 02/02/2024 Transfer In [facility] Records page 17. added per [facility]I policy.Chronic kidney disease (9 sources)Chronic kidney disease stage 2; Translations: [Chronic kidney disease, stage 2 (mild)]Onset: 666302-85-2075DrjzmviGefelyq on above:noted in 02/02/2024 Transfer In [facility] Records page 18. added per OP CDI policy.linked HTN with CKD per [facility] CDI policy.Chronic obstructive pulmonary disease and bronchiectasis (1 source)Bronchitis, not specified as acute or chronicEpisodicDisorders of lipid metabolism (7 sources)Mixed hyperlipidemia; Translations: [Mixed hyperlipidemia]Onset: 308874-02-5084FmylcykDohqfvvqkv disorders (2 sources)Esophagitis; Translations: [Esophagitis, unspecified]Episodic Essential hypertension (1 source)Hypertensive -35-6860BxhwysdZeqdyxnxr and duodenitis (1 source)Gastritis; Translations: [Gastritis, unspecified, without bleeding] EpisodicMalaise and fatigue (8 sources)Chronic fatigue syndrome; Translations: [Chronic fatigue syndrome] Onset: 754189-76-3280VnscivaOflailt on above:noted in 02/02/2024 Transfer In [facility] Records page 20. added per [facility] CDI policy.Menopausal disorders (7 sources)Menopausal syndrome; Translations: [Menopausal and female climacteric states]Onset: 781650-53-2030BfagrkdKuxvervbnmp deficiencies (8 sources)Vitamin D deficiency; Translations: [Vitamin D deficiency, unspecified]Onset: 654761-43-3874XwdgpcqQxhjids on above:noted in 02/02/2024 Transfer In [facility] Records page 27. added per OP CDI policy. Osteoarthritis (1 source)Llpyudmbuqlxhx62-38-3632KihwjnmZtxsr connective tissue disease (2 sources)Nontraumatic complete rupture of rotator cuff of right shoulder; Translations: [Complete rotator cuff tear or rupture of right shoulder, not specified as traumatic]12-60-9091EfronbegWcqcs connective tissue disease (2 sources)Adhesive capsulitis of right shoulder; Translations: [Adhesive capsulitis of right shoulder]82-76-9457VkhbqwcoYbiru connective tissue disease (1 source)Disorder of rotator gwgt00-29-6562NdtgwjdhEtmch connective tissue disease (1 source)Supraspinatus bvkk41-24-9562GkvrqkpvXhvjp eye disorders (1 source)Hemorrhage of eyelid; Translations: [Other specified disorders of eyelid]36-66-8902KxtydbglKahsu liver diseases (8 sources)Non-alcoholic fatty liver disease without non-alcoholic steatohepatitis; Translations: [Fatty (change of) liver, not elsewhere classified]Onset: 071235-54-7035FgfxgkaJssbesv on above:noted in 02/02/2024 Transfer In [facility] Records page 17. added per [facility] CDI policy.Other non- traumatic joint disorders (1 source)Hip asjj96-76-0336CxemdfhaArpco nutritional; endocrine; and metabolic disorders (1 source)Body mass index 30+ - -22-1892SmgbdupClcke nutritional; endocrine; and metabolic disorders (1 source)Obesity caused by energy bxonfzwdi71-05-4799YtjqoeiSmlgr upper respiratory disease (7 sources)Allergic rhinitis due to pollen; Translations: [Allergic rhinitis due to pollen]Onset: 134147-83-9829InmjujmAdctmrj disorders (8 sources)Acquired hypothyroidism; Translations: [Hypothyroidism, unspecified] Onset: 411279-66-4741NpqzuqfGrppehqvdahu (1 source)Pain of right shoulder vaqlli16-78-4199 Past or Other Problems Problem ClassificationProblemDateDocumented DateEpisodic/ChronicCataract (8 sources)Bilateral age-related nuclear cataracts; Translations: [Age-related nuclear cataract, bilateral]Onset: 02-25-2024 Resolved: 031836-01-8951RnxepepVuxwzecnpzh and hemorrhagic disorders (7 sources)Thrombocytopenic disorder; Translations: [Thrombocytopenia, unspecified]Onset: 01-01-2023 Resolved: 301269-87-3582DylhkfrFdsf disorders (7 sources)Mood disordersOnset: Other bone disease and musculoskeletal deformities (14 sources)Osteopenia; Translations: [Other specified disorders of bone density and structure, right thigh]Onset: 464077-65-3629LcovuyndWtztn bone disease and musculoskeletal deformities (7 sources)Disorder of bone; Translations: [Other specified disorders of bone density and structure, right thigh]Onset: 01-01-2023 Resolved: 671951-18-1612MnhmencxCfzva eye disorders (3 sources)Lesion of eyelid; Translations: [Unspecified disorder of eyelid] Onset: 965601-55-8645GxnkjbgrVunwg liver diseases (7 sources)Steatosis of liver; Translations: [Fatty (change of) liver, not elsewhere classified]Onset: 03-10-2018 Resolved: 260654-95-3917DoudsnjTzetd nutritional; endocrine; and metabolic disorders (7 sources)Body mass index 25-29 - overweight; Translations: [Overweight]Onset: 434427-67-8765SodppeojBazjccjieaww (1 source)Contact with and (suspected) exposure to covid-19 Z20.822 Results Test NameValueInterpretationReference RangeFacilityAmbulatory Visit Summaryon 66-40-4329Lueifcsdyt Visit SummaryAmbulatory Visit Summary ANA ROSA TUCKER :1950 Visit Date:05/23/2025 Ambulatory Visit Instructions Your Diagnosis Hypothyroidism Thrombopenia Neck pain on right side Your Care Team Attending Physician - Rowena Ron DO. Primary Care Physician - Gwen Conklin This Is Your Medications List calcium carbonate (calcium (as carbonate) 600 mg oral tablet) ergocalciferol (Vitamin D2 50,000 intl units (1.25 mg) oral capsule) levothyroxine (levothyroxine 88 mcg (0.088 mg) Tab) lysine (lysine 500 mg oral tablet) [Image Removed: STOP]Stop taking these medications acetaminophen-hydrocodone (acetaminophen-hydrocodone 325 mg-5 mg oral tablet) aspirin (aspirin 81 mg Chew Tab) meloxicam (meloxicam 15 mg Tab) Procedures Performed Cholecystectomy, Skin cancer, TL - Tubal ligation, Tonsillectomy. Discharge Vitals Temperature (Temporal Artery) 36.6 ???C Heart Rate (Peripheral) 74 Respiratory Rate 16 Blood Pressure 126/76 Height 157 cm Height 62 in Weight 75.2 kg Weight 165.787 lb BMI 30.51 What to do next Scheduled Follow-Up Appointments Thursday 11:00 AM EST With: Rowena Ron DO Where: [address] [address]24 10:00 AM EST With: Gwen Conklin Where: [address] [address]- [address]25 9:20 AM EDT With: Gwen Conklin Where: [address] [address]- [address]25 9:30 AM EDT With: Where: [facility] [id number] [place] [address]- You Need to Schedule the Following Appointments Follow Up with Rowena Ron DO, [place], PED When: In 2 weeks Where: Medications What How Much When Instructions Unchanged calcium carbonate (calcium (as carbonate) 600 mg oral tablet) 1 Tablets By Mouth 2 times a day Unchanged ergocalciferol (Vitamin D2 50,000 intl units (1.25 mg) oral capsule) See instructions TAKE 1 CAPSULE BY MOUTH WEEKLY Unchanged levothyroxine (levothyroxine 88 mcg (0.088 mg) Tab) 1 Tablets By Mouth Every day Unchanged lysine (lysine 500 mg oral tablet) 1 Tablets By Mouth Every day What How Much When Why Comments Stop Taking acetaminophen-hydrocodone (acetaminophen-hydrocodone 325 mg-5 mg oral tablet) 1 TabletsBy Mouth At bedtime as needed for for pain Supraspinatus tendon rupture BMI 30.0-30.9,adult Class 2obesity due to excess calories in adult Non-smoker for severe pain 8- Stop Taking aspirin (aspirin 81 mg Chew Tab) 1 Tablets By Mouth Every day Stop Taking meloxicam (meloxicam 15 mg Tab) 1 Tablets By Mouth Every day Supraspinatus tendon rupture BMI 30.0-30.9,adult Class 2 obesity due to excess calories in adult Non-smoker Allergies penicillin (Swelling) Problems Ongoing - Any problem that you are currently receiving treatment for. Benign hypertension with chronic kidney disease, stage II BMI 30.0-30.9,adult Chronic fatigue syndrome Class 2 obesity due to excess calories in adult Hypertension Hypothyroid Left hip pain Nonalcoholic fatty liver disease without nonalcoholic steatohepatitis [...] you for choosing us for your care. Patient Portal You may access all of your results and other medical record information on our secure patient portal. If you are not signed up for this yet, please contact [employer] Information Management at [phone] to get signed up today. Language Information Language assistance services are available as needed. [facility] Medicine Office/Clinic Noteon 19-34-5401Eixdmv Medicine Office/Clinic NoteLa[facility] Office/Clinic Note HPI Staff Pt is presenting to establish care Establish Care: History: Any previous diagnosis: thyroid History of seeing any specialist: no When was your last doctors visit: 01/12/25 Last provider: Brian Any recent labs: 01/12/25 Health Maintenance UTD: Colonoscopy: do not have to have anymore Mammogram: 01/19/25 Pelvic/Pap: do not have to have anymore Acute: Current issues/complaints: wants heart and breathing checked Refills: none History of Present Illness Patient is a 75-year-old female with past medical history of hypothyroidism and skin CA who presented today to establish care. Patient reported that in 2023, the day after she was lifting a container of water out of her trunk,she started experiencing right shoulder pain. Patient went through a course of physical therapy however did not find this helpful. She continued home exercises with light weights and reported she hasseen some improvements. Patient also mentioned right sided neck pain that limits her from laying flat in bed. She denied numbness, tingling, weakness, and history of dropping items out of her grasp. Patient reported that she was recently started on a medication for osteoporosis however she cannot remember the name of it. She reported taking vitamin D and calcium supplementation. Patient mentioned she has a long-sanding history of thrombocytopenia. Patient denied signs of bleeding including bleeding from the gums. She also denied a known family history of bleeding disorders. As for patient's hyperlipidemia, she previously tried to take Lipitor but was unable to tolerate this due to leg cramps. Patient stopped eating fried foods approximately 5 to 6 years ago. She reported that in 2019, she had a home health nurse visiting who noticed an irregular heart beat. She was seen by physician after this and was planned to undergo a cardiac workup however this was aborted due to the COVID pandemic. She currently is not experiencing any chest pain, shortness of breath, orthopnea, PND, or palpitations. Per documentation review, patient has a history of SVT and PVCs. Patient reported that her mother had a history of atrial fibrillation and both her parents hada history of type 2 diabetes. Review of Systems PHQ Score Initial Depression Screen Score: 0 SCORE Pertinent review of systems is addressed in the HPI. Physical Exam Vitals & Measurements T: 36.6 ???C(Temporal Artery) HR: 74(Peripheral) RR: 16 BP: 126/76 HT: 157 cm HT: 62 in WT: 75.2 kg WT: 165.787 lb BMI: 30.51 General: Alert and oriented, in no acute distress HEENT: - Normocephalic, atraumatic - EOMI, conjunctiva WNL Cardiovascular: Regular rate and rhythm, no murmur/rubs/gallops, no lower extremity edema Respiratory: Lungs clear to auscultation BL without wheezing/rales/rhonchi, normal respiratory effort Abdomen: Soft, nontender, nondistended Neurologic: Right upper extremity has normal strength and sensation, normal gait MSK: Right-sided hypertonic trapezius muscle, shoulder range of motion normal with the exception oflimited internal rotation, negative right-sided empty can test, no midline spinal tenderness upon palpation Skin: Warm, dry, intact; no rashes Psych: Normal mood, normal affect Assessment/Plan 1. Osteopenia (M85.80: Other specified disorders of bone density and structure, unspecified site) Chronic. DEXA scan from 12/2023 reviewed and revealed T-score of -1.8 at the left femoral neck. Calculated FRAX score showed a 10-year probability of major osteoporotic fracture is 13% and hip fracture is 3.0%. Patient's labs from 12/2024 reviewed and showed normal vitamin D and calcium level. Recommended patient continue on calcium and vitamin D supplementation. Advised patient to continue with weightbearing home exercises, suggested to continue the weighted vest for added intensity. Patient reports that she was started on osteoporosis medication however is unsure of the name/dose,she plans to bring in her pill bottles at next visit. 2. Hypothyroidism (E03.9: Hypothyroidism, unspecified) Chronic. Borderline uncontrolled. Patient's labs from 12/2024 reviewed and showed TSH at 0.58 (low normal), will repeat TSH and free T4. For now, patient advised to continue levothyroxine 88 mcg. Ordered: Free T4 Thyroid Stimulating Hormone 3. Neck pain on right side (M54.2: Cervicalgia) Chronic. Uncontrolled. Likely due to hypertonic trapezius muscle. Currently there is no concern for radicular or peripheral nerve pathology, no indication for imaging at this time. Advised patient to continue home stretches and PRN use of lidocaine/IcyHot patches. Recommended avoidance of NSAIDs in the setting of mildly reduced eGFR. Referral sent to Dr. Sánchez for OMT. 4. CKD stage 3a, GFR 45-59 ml/min (N18.31: Chronic kidney disease, stage 3a) Unclear chronicity. Labs reviewed from 12/2024 revealed eGFR of 58, prior eGFR has been >60. Advis (more content not included)...[facility] HospitalComment on above:Result Comment: Electronically Signed By: Rowena Ron DO\.br\Date and Time Signed: 05/23/25 12:47 ESTMM screening mammo BI w/CADon 41-23-0151GR screening mammo BI [facility] [address] [place] [address] Mammography Report Signed Patient: Ana Rosa Tucker MR#: [id number] 62 : 1950 Acct:[id number] Age/Sex: 75 / F Adm Date: 01/19/25 Loc: [place] Room: Type: [facility] Attending Dr: Referral Self Ordering Provider: ANDREIA,REFERRAL Date of Service: 01/19/25 Procedure(s): MM screening mammo BI w/CAD Accession Number(s): ([id number]) MM/MM screening mammo BI w/CAD: SCREENING Copies to: Gwen Shelton CNP SELF,REFERRAL CLINICAL DATA: Screening for malignancy. SCREENING MAMMOGRAM - FULL FIELD DIGITAL WITH TOMOSYNTHESIS AND CAD COMPARISON:Mammograms dating back to 2019 Tomosynthesis craniocaudal and mediolateral oblique views of both breasts were obtained using low- dose digital technique. This examination was reviewed with the aid of CAD. FINDINGS: The breast tissue is composed of scattered fibroglandular densities. There are no dominant masses, typically malignant calcifications or architectural distortion. There has been no significant interval change. MM/MM screening mammo BI w/CAD IMPRESSION: NO MAMMOGRAPHIC EVIDENCE OF MALIGNANCY. ROUTINE FOLLOW-UP IS RECOMMENDED IN ONE YEAR. RESULT CODE: 1 Negative DENSITY CODE: 2 (approximately 25-50% glandular) There are scattered areas of fibroglandular density. FOLLOW UP: 1YR The false-negative rate of mammography is approximately 10-percent. Management of a palpable abnormality must be based on clinical grounds. Patient was entered into a reminder system with a target due date for the next mammogram. Impression dictated by: Chico Wallace Jr., D.O. 01/19/2025 3:23 PM Dictation Location: [facility] Dictated By: Chico Wallace Jr DO 01/19/25 1522 Signed By: 01/19/[address] [place] [address] Physician GroupMammography reportOrdered By: Chico Wallace on [id number] imaging [facility] [address] [place] [address] Mammography Report Signed Patient: Ana Rosa Tucker MR#: [id number] : 1950 Acct:[id number] Age/Sex: 75 / F Adm Date: 5 Loc: [place] Room: Type: [facility] Attending Dr: Referral Self Ordering Provider: SELF,REFERRAL Date of Service: 01/19/25 Procedure(s): MM screening mammo BI w/CAD Accession Number(s): ([id number]) MM/MM screening mammo BI w/CAD: SCREENING Copies to: Gwen Shelton CNP SELF,REFERRAL ~ CLINICAL DATA: Screening for malignancy. SCREENING MAMMOGRAM - FULL FIELD DIGITAL WITH TOMOSYNTHESIS AND CAD COMPARISON:Mammograms dating back to 2019 Tomosynthesis craniocaudal and mediolateral oblique views of both breasts were obtained using low-dose digital technique. This examination was reviewed with the aid of CAD. FINDINGS: The breast tissue is composed of scattered fibroglandular densities. There are no dominant masses, typically malignant calcifications or architectural distortion. There has been no significant interval change. MM/MM screening mammo BI w/CAD IMPRESSION: NO MAMMOGRAPHIC EVIDENCE OF MALIGNANCY. ROUTINE FOLLOW-UP IS RECOMMENDED IN ONE YEAR. RESULT CODE: 1 Negative DENSITY CODE: 2 (approximately 25-50% glandular) There are scattered areas of fibroglandular density. FOLLOW UP: 1YR The false-negative rate of mammography is approximately 10-percent. Management of a palpable abnormality must be based on clinical grounds. Patient was entered into a reminder system with a target due date for the next mammogram. Impression dictated by: Chico Wallace Jr., D.O. 01/19/2025 3:23 PM Dictation Location: [facility] Dictated By: Chico Wallace Jr, DO 01/19/25 1522 Signed By: 01/19/[address] [facility] [id number] From: Gwen Conklin To: [facility] - Clinical; Sent: 01/13/2025 07:50:19 EDT Show up: 01/13/2025 07:50:00 EDT Subject: Ambulatory Reminder Due Date/Time: 01/14/2025 07:49:00 EDT cholesterol and triglycerides are a little elevated. make dietary changes like decreasing greasy, fatty, fried foods. Results: Date Result Name Ind Value Ref Range 2025 11:33 WBC 6.0 E9/L (4.0 - 11.0) 2025 11:33 RBC 4.6 E12/L (4.3 - 5.9) 2025 11:33 HGB 13.7 gm/dL (12.0 - 16.0) 2025 11:33 Hct 40.6 % (34.0 - 46.0) 2025 11:33 MCV 89.3 fL (80.0 - 100.0) 2025 11:33 MCH 30.1 pg (27.0 - 34.0) 2025 11:33 MCHC 33.7 gm/dL (31.4 - 36.0) 2025 11:33 RDW 13.7 % (10.9 - 14.2) 2025 11:33 Platelet (L) 137.0 E9/L (150.0 - 500.0) 2025 11:33 MPV 10.8 fL (6.4 - 10.8) 2025 11:33 Neutro Auto 60.2 % (36.0 - 75.0) 2025 11:33 Lymph Auto 26.5 % (14.0 - 50.0) 2025 11:33 Guadalupe Auto 11.0 % (4.0 - 14.0) 2025 11:33 Eos Auto 1.7 % (0.0 - 8.0) 2025 11:33 Basophil Auto 0.6 % (0.0 - 2.0) 2025 11:33 Neutro Absolute 3.6 E9/L (2.0 - 7.5) 2025 11:33 Lymph Absolute 1.6 E9/L (1.0 - 4.0) 2025 11:33 Guadalupe Absolute 0.7 E9/L (0.2 - 1.0) 2025 11:33 Eos Absolute 0.1 E9/L (0.0 - 0.5) 2025 11:33 Basophil Absolute 0.0 E9/L (0.0 - 0.2) 2025 11:33 Glucose Lvl 97 mg/dL (55 - 199) 2025 11:33 BUN 17 mg/dL (5 - 21) 2025 11:33 Creatinine 1.0 mg/dL (0.5 - 1.3) 2025 11:33 eGFR (L) 58 mL/min/1.73 m2 (>=59 - ) 2025 11:33 BUN/Creat Ratio 17 (10 - 20) 2025 11:33 Sodium Lvl 140 mmol/L (135 - 145) 2025 11:33 Potassium Lvl 5.0 mmol/L (3.5 - 5.3) 2025 11:33 Chloride 106 mmol/L (101 - 111) 2025 11:33 CO2 29 mmol/L (21 - 31) 2025 11:33 AGAP 10 mEq/L (6 - 16) 2025 11:33 Calcium Lvl 10.2 mg/dL (8.9 - 11.1) 2025 11:33 Alk Phos 79 Int._Unit/L (21 - 98) 2025 11:33 ALT 22 Int._Unit/L (6 - 46) 2025 11:33 AST 23 Int._Unit/L (5 - 43) 2025 11:33 Total Protein 6.7 gm/dL (6.0 - 7.8) 2025 11:33 Albumin Lvl 4.2 gm/dL (3.3 - 5.0) 2025 11:33 Globulin 2.5 gm/dL (1.4 - 4.0) 2025 11:33 A/G Ratio 1.7 (1.1 - 2.2) 2025 11:33 Bili Total 0.5 mg/dL (0.0 - 1.1) 2025 11:33 Chol (H) 202 mg/dL (120 - 200) 2025 11:33 Trig (H) 222 mg/dL ( - <=149) 2025 11:33 HDL 41 mg/dL 2025 11:33 LDL Direct (H) 134 mg/dL ( - <=129) 2025 11:33 VLDL (H) 44 mg/dL (7 - 40) 2025 11:33 TSH 0.58 mcIU/mL (0.34 - 5.60) 2025 11:33 Vitamin D 25 Hydroxy 70.5 ng/mL (30.0 - 100.0) understandsNoRegency Hospital Cleveland EastAmbulatory Visit Summaryon [id number] Visit SummaryAmbulatory Visit Summary ANA ROSA TUCKER :1950 Visit Date:2025 Ambulatory Visit Instructions Your Diagnosis Encounter for initial annual wellness visit (AWV) in Medicare patient Benign hypertension with chronic kidney disease, stage II Hypertension Hypothyroid No advance directives Breast cancer screening by mammogram Obesity due to excess calories Your Care Team Attending Physician - Gwen Conklin Primary Care Physician - Gwen Conklin This Is Your Medications List acetaminophen-hydrocodone (acetaminophen-hydrocodone 325 mg-5 mg oral tablet) aspirin (aspirin 81 mg Chew Tab) calcium carbonate (calcium (as carbonate) 600 mg oral tablet) ergocalciferol (Vitamin D2 50,000 intl units (1.25 mg) oral capsule) levothyroxine (levothyroxine 88 mcg (0.088 mg) Tab) lysine (lysine 500 mg oral tablet) meloxicam (meloxicam 15 mg Tab) Procedures Performed Cholecystectomy, TL - Tubal ligation, Tonsillectomy. Discharge Vitals Heart Rate (Peripheral) 74 Blood Pressure 126/76 Height 157 cm Height 62 in Weight 74.5 kg Weight 164.244 lb BMI 30.22 What to do next Scheduled Follow-Up Appointments 2024 10:00 AM EST With: Gwen Conklin Where: [address] [id number] 2025 9:20 AM EDT With: Gwen Conklin Where: [address] [id number]- 2025 9:30 AM EDT With: Where: [address] [id number] Medications What How Much When Why Instructions Unchanged acetaminophen-hydrocodone (acetaminophen-hydrocodone 325 mg-5 mg oral tablet) 1 Tablets By Mouth At bedtime as needed for for pain Supraspinatus tendon rupture BMI 30.0-30.9,adult Class 2 obesity due to excess calories in adult Non-smoker for severe pain - Unchanged aspirin (aspirin 81 mg Chew Tab) 1 Tablets By Mouth Every day Unchanged calcium carbonate (calcium (as carbonate) 600 mg oral tablet) 1 Tablets By Mouth 2 times a day Unchanged ergocalciferol (Vitamin D2 50,000 intl units (1.25 mg) oral capsule) See instructions TAKE 1 CAPSULE BY MOUTH WEEKLY Unchanged levothyroxine (levothyroxine 88 mcg (0.088 mg) Tab) 1 Tablets By Mouth Every day Unchanged lysine (lysine 500 mg oral tablet) 1 Tablets By Mouth Every day Unchanged meloxicam (meloxicam 15 mg Tab) 1 Tablets By Mouth Every day Supraspinatus tendon ruptureBMI 30.0-30.9,adult Class 2 obesity due to excess calories in adult Non-smoker Allergies penicillin (Swelling) Problems Ongoing - Any problem that you are currently receiving treatment for. Benign hypertension with chronic kidney disease, stage II BMI 30.0-30.9,adult Chronic fatigue syndrome Class 2 obesity due to excess calories in adult Hypertension Hypothyroid Left hip pain Nonalcoholic fatty liver disease without nonalcoholic steatohepatitis [...] choosing us for your care. Education [employer] BMI for Adults Body mass index (BMI) is a number found using a person's weight and height. BMI can help tell how much of a person's weight is made up of fat. BMI does not measure body fat directly. It is used instead of tests that directly measure body fat, which can be difficult and expensive. What are BMI measurements used for? BMI is useful to: ??? Find out if your weight puts you at higher risk for medical problems. ??? Help recommend changes, such as in diet and exercise. This can help you reach a healthy weight. BMIscreening can be done again to see if these changes are working. How is BMI calculated? Your height and weight are measured. The BMI is found from those numbers. This can be done with U.S. or metric measurements. Note that charts and online BMI calculators are available to help you findyour BMI quickly and easily without doing these calculations. To calculate your BMI in U.S. measurements: 1. Measure your weight in pounds (lb). 2. Multiply the number of pounds by 703. ??? So, for an adult who weighs 150 lb, multiply that number by 703: 150 x 703, which equals 105,450. 3. Measure your height in inches. Then multiply that number by itself to get a measurement called inches squared. ??? So, for an adult who is 70 inches tall, the inches squared measurement is 70 inches x 70 inches, which equals 4,900 inches squ (more content not included)... [facility]Amb[facility] SummaryAmb[facility] Visit Summary ANA ROSA TUCKER :1950 Visit Date:2025 Ambulatory Visit Instructions Your Diagnosis Hypertension Hypothyroid Nonalcoholic fatty liver disease without nonalcoholic steatohepatitis (SYKES) Osteoarthritis Left hip pain Vitamin D deficiency Stage 2 chronic kidney disease BMI 30.0-30.9,adult Non-smoker Tests Performed XR Hip 2-3 Views Left -- Results Pending -- Please visit your patient portal for your results or contact your primary care physician. Your Care Team Attending Physician - Gwen Conklin Primary Care Physician - Gwen Conklin This Is Your Medications List acetaminophen-hydrocodone (acetaminophen-hydrocodone 325 mg-5 mg oral tablet) aspirin (aspirin 81 mg Chew Tab) calcium carbonate (calcium (as carbonate) 600 mg oral tablet) ergocalciferol (Vitamin D2 50,000 intl units (1.25 mg) oral capsule) levothyroxine (levothyroxine 88 mcg (0.088 mg) Tab) lysine (lysine 500 mg oral tablet) meloxicam (meloxicam 15 mg Tab) Procedures Performed Cholecystectomy, TL - Tubal ligation, Tonsillectomy. Discharge Vitals Heart Rate (Peripheral) 74 Blood Pressure 126/76 Height 157 cm Height 62 in Weight 74.5 kg Weight 164.244 lb BMI 30.22 What to do next Scheduled Follow-Up Appointments 2024 10:00 AM EST With: Gwen Conklin Where: [facility] [place] [id number] Medications What How Much When Why Instructions Unchanged acetaminophen-hydrocodone (acetaminophen-hydrocodone 325 mg-5 mg oral tablet) 1 Tablets By Mouth At bedtime as needed for for pain Supraspinatus tendon rupture BMI 30.0-30.9,adult Class 2 obesity due to excess calories in adult Non-smoker for severe pain 8- Unchanged aspirin (aspirin 81 mg Chew Tab) 1 Tablets By Mouth Every day Unchanged calcium carbonate (calcium (as carbonate) 600 mg oral tablet) 1 Tablets By Mouth 2 times a day Unchanged ergocalciferol (Vitamin D2 50,000 intl units (1.25 mg) oral capsule) See instructions TAKE 1 CAPSULE BY MOUTH WEEKLY Unchanged levothyroxine (levothyroxine 88 mcg (0.088 mg) Tab) 1 Tablets By Mouth Every day Unchanged lysine (lysine 500 mg oral tablet) 1 Tablets By Mouth Every day Unchanged meloxicam (meloxicam 15 mg Tab) 1 Tablets By Mouth Every day Supraspinatus tendon ruptureBMI 30.0-30.9,adult Class 2 obesity due to excess calories in adult Non-smoker Allergies penicillin (Swelling) Problems Ongoing - Any problem that you are currently receiving treatment for. Benign hypertension with chronic kidney disease, stage II Chronic fatigue syndrome Class 2 obesity due to excess calories in adult Hypertension Hypothyroid Left hip pain Nonalcoholic fatty liver disease without nonalcoholic steatohepatitis [...] you for choosing us for your care. Patient Portal You may access all of your results and other medical record information on our secure patient portal. If you are not signed up for this yet, please contact [employer] at [phone] to get signed up today. Language Information Language assistance services are available as needed. [facility] w/ Auto Diffon 2025 Basophil Absolute0.0 E9/LNormal0.0-0.2FOur Lady of Mercy Hospital - AndersonComment on above:Performed By: #### [id number] #### [facility] [address] [place], [place] [address]Oblrbyeyp/100 WBC (Bld)0.6 %Normal0.0-2.0[facility] DublinComment on above:Performed By: #### [id number] #### [facility] [address] [place], [place] [address]Cje Absolute0.1 E9/LNormal0.0-0.5FOur Lady of Mercy Hospital - Anderson Comment on above:Performed By: #### [id number] #### [facility] [address] [place], [place] [address]Mhxpyouxuqc/100 WBC (Bld)1.7 %Normal0.0-8.0[facility] DublinComment on above:Performed By: #### [id number] #### [facility] [address], [place] [address]Blmbtkuoxle distribution width (RBC) [Ratio]13.7 %Normal 10.9-14.2FOur Lady of Mercy Hospital - AndersonComment on above:Performed By: #### [id number] #### [facility] [address], [place] [address]Wvmgebikkh (Bld) [Volume fraction]40.6 %Toogwg27.0-46.0[facility] DublinComment on above:Performed By: #### [id number] #### [facility] [address] [place], [place] [address]Uzqodnektr (Bld) [Mass/Vol]13.7 g/iDIwhihu70.0-16.0[facility] DublinComment on above:Performed By: #### [id number] #### [facility] [address], [place] [address]Nbhky Absolute1.6 E9/LNormal1.0-4.0[facility] Comment on above:Performed By: #### [id number] #### [facility] [address] [place], [place] [address]Bewjchozuei/100 WBC (Bld)26.5 %Choeyv21.0-50.0[facility] DublinComment on above:Performed By: #### [id number] #### [facility] [address], [place] [address]RUB (RBC) [Entitic mass]30.1 bnGdiald06.0-34.0[facility] DublinComment on above:Performed By: #### [id number] #### [facility] [address], [place] [address]OBKM (RBC) [Mass/Vol]33.7 g/hNXbhhcx31.4-36.0[facility] DublinComment on above:Performed By: #### [id number] #### [facility] [address] [place] [address]PGN (RBC) [Entitic vol]89.3 pIZevwha63.0-100.0[facility] DublinComment on above:Performed By: #### [id number] #### [facility] [address], [place] [address]Imao Absolute0.7 E9/LNormal0.2-1.0[facility] Comment on above:Performed By: #### [id number] #### [facility] [address] [place] [address]Rtzqfymxl/100 WBC (Bld)11.0 %Normal4.0-14.0[facility] DublinComment on above:Performed By: #### [id number] #### [facility] [address] [place] [address]Jfmpuy Absolute3.6 E9/LNormal2.0-7.5FOur Lady of [facility] Comment on above:Performed By: #### [id number] #### [facility] [address] [place] [address]Vouklm Auto60.2 %Zlooie31.0-75.0[facility] Comment on above:Performed By: #### [id number] #### [facility] [address], [place] [address]Fkmksndx913.0 E9/LUzp336.0-500.0[facility] Comment on above:Performed By: #### [id number] #### [facility] [address], [place] [address]Jiuxsqip mean volume (Bld) [Entitic vol]10.8 fLNormal6.4-10.8 [facility] DublinComment on above:Performed By: #### [id number] #### [facility] [address] [place] [address]WOS8.6 E12/LNormal4.3-5.9[facility] DublinComment on above:Performed By: #### [id number] #### [facility] [address], [place] [address]IWB7.0 E9/LNormal4.0-11.0[facility] DublinComment on above:Performed By: #### [id number] #### [facility] [address], [place] [address]DDXHOIZCBUetykzq By: SYSTEM SYSTEM on [id number]- hydroxyvitamin D3 [Mass/Vol]70.5 ng/qHApdxhb58.0 - 100.0 ng/mLRemisol Chem Albumin [Mass/Vol]4.2 g/dLNormal3.3 - 5.0 gm/dLRemisol ChemAlbumin/Globulin [Mass ratio]1.7 {ratio}Normal1.1 - 2.2Remisol ChemALP [Catalytic activity/Vol]79 [iU]/cCkwzgy11 - 98 Int._Unit/LRemisol ChemALT No additional P-5'-P [Catalytic activity/Vol]22 [iU]/dNormal6 - 46 Int._Unit/LRemisol ChemAnion gap [Moles/Vol] 10 mmol/LNormal6 - 16 mEq/LRemisol ChemAST [Catalytic activity/Vol]23 [iU]/d Normal5 - 43 Int._Unit/LRemisol ChemBilirubin [Mass/Vol]0.5 mg/dLNormal0.0 - 1.1 mg/dLRemisol ChemCalcium [Mass/Vol]10.2 mg/dLNormal8.9 - 11.1 mg/dLRemisol Chem Chloride [Moles/Vol]106 mmol/BFayiws406 - 111 mmol/LRemisol ChemCholesterol [Mass/Vol]202 mg/cXThsv489 - 200 mg/dLRemisol ChemCholesterol in HDL [Mass/Vol] 41 mg/dLInvalid Interpretation CodeRemisol ChemComment on above:Result Comment: '>= 60 LOW RISK' '<= 40 HIGH RISK'Cholesterol in LDL [Mass/Vol]134 mg/dLHigh<=129mg/dLRemisol ChemCholesterol in VLDL [Mass/Vol]44 mg/dLHigh7 - 40 mg/dLRemisol ChemCO2 [Moles/Vol]29 mmol/RSjvxut18 - 31 mmol/LRemisol ChemCreatinine [Mass/Vol]1.0 mg/dLNormal0.5 - 1.3 mg/dLRemisol ChemGFR/1.73 sq M.predicted MDRD (S/P/Bld) [Vol rate/Area]58 mL/min/1.73 m2Low>=59mL/min/1.73 l8Xpvmskm ChemGlobulin (S) [Mass/Vol]2.5 g/dLNormal1.4 - 4.0 gm/dLRemisol ChemGlucose [Mass/Vol]97 mg/dL Vxtrwr95 - 199 mg/dLRemisol ChemPotassium [Moles/Vol]5.0 mmol/LNormal3.5 - 5.3 mmol/LRemisol ChemProtein [Mass/Vol]6.7 g/dLNormal6.0 - 7.8 gm/dLRemisol Chem Sodium [Moles/Vol]140 mmol/SWyvfes675 - 145 mmol/LRemisol ChemTriglyceride [Mass/Vol]222 mg/dLHigh<=149mg/dLRemisol ChemTSH Qn0.58 m[IU]/LNormal0.34 - 5.60 mcIU/mLRemisol ChemUrea nitrogen [Mass/Vol]17 mg/dLNormal5 - 21 mg/dLRemisol ChemUrea nitrogen/Creatinine [Mass ratio]17 mg/luFfitut41 - 20Remisol ChemCMPon 56-55-3195Lwblgww [Mass/Vol]4.2 g/dLNormal3.3-5.0[facility] Comment on above:Performed By: #### [id number] #### [facility] [address], [place] [address]Avjhgnj/Globulin [Mass ratio]1.7 {ratio}Normal1.1-2.2FOur Lady of Mercy Hospital - AndersonComment on above:Performed By: #### [id number] #### [facility] [address], [place] [address]Pae Phos79 Int._Unit/GKghdan85-24AgsffsSelect Medical [facility] Comment on above:Performed By: #### [id number] #### [facility] [address] [place], [place] [address]LEV39 Int._Unit/LNormal6-46[facility] - DublinComment on above:Performed By: #### [id number] #### [facility] [address] [place], [place] [address]Lildf gap [Moles/Vol]10 mmol/LNormal6-16[facility] DublinComment on above:Performed By: #### [id number] #### [facility] [address] [place], [place] [address]XTS16 Int._Unit/LNormal5-43[facility] DublinComment on above:Performed By: #### [id number] #### [facility] [address], [place] [address]Vhnz Total0.5 mg/dLNormal0.0-1.1FOur Lady of Mercy Hospital [facility] Comment on above:Performed By: #### [id number] #### [facility] [address], [place] [address]GYM/Creat Ratio17 No FjpaaQmhhkj53-61BkvsviSelect Medical [facility]health Rehabilitation Hospital - DublinComment on above:Performed By: #### [id number] #### [facility] [address], [place] [address]Aaojfst [Mass/Vol]10.2 mg/dLNormal8.9-11.1FOur Lady of Mercy Hospital - AndersonComment on above:Performed By: #### [id number] #### [facility] [address], [place] [address]Ffzzsoey [Moles/Vol]106 mmol/JVlamhu356-684PacbwySelect Medical [facility]health Rehabilitation Hospital - DublinComment on above:Performed By: #### [id number] #### [facility] [address], [place] [address]BU8 [Moles/Vol]29 mmol/AQgkyra19-64QuwsdzSelect Medical [facility] Comment on above:Performed By: #### [id number] #### [facility] [address], [place] [address]Hieudbqbfl [Mass/Vol]1.0 mg/dLNormal0.5-1.3FOur Lady of Mercy Hospital - AndersonComment on above:Performed By: #### [id number] #### [facility] [address], [place] [address]Uagvanpp (S) [Mass/Vol]2.5 g/dLNormal1.4-4.0[facility] DublinComment on above:Performed By: #### [id number] #### [facility] [address], [place] [address]Rqsnzzv [Mass/Vol]97 mg/lASuahmg80-481ZkdjfhSelect Medical [facility]health Rehabilitation Hospital - DublinComment on above:Performed By: #### [id number] #### [facility] [address] [place] [address]Wyrsiuimk [Moles/Vol]5.0 mmol/LNormal3.5-5.3FOur Lady of Mercy Hospital - AndersonComment on above:Performed By: #### [id number] #### [facility] [address], [place] [address]Pitifza [Mass/Vol]6.7 g/dLNormal6.0-7.8[facility] DublinComment on above:Performed By: #### [id number] #### [facility] [address], [place] [address]Qmvdrz [Moles/Vol]140 mmol/CQxqwfw140-709ZuddjfSelect Medical Ohiohealth Rehabilitation Hospital - DublinComment on above:Performed By: #### [id number] #### [facility] [address], [place] [address]Shlb nitrogen [Mass/Vol]17 mg/dLNormal5-21[facility] DublinComment on above:Performed By: #### [id number] #### [facility] [address], [place] [address]Vuhydj Medicine Office/Clinic Noteon [id number] Medicine Office/Clinic NoteFamily Medicine Office/Clinic Note Chief Complaint Initial Medicare Wellness Review of Systems PHQ Score Initial Depression Screen Score: 0 SCORE Physical Exam Vitals & Measurements HR: 74(Peripheral) BP: 126/76 SpO2: 97% HT: 157 cm HT: 62 in WT: 74.5 kg WT: 164.244 lb BMI: 30.22 Assessment/Plan 1. Encounter for initial annual wellness visit (AWV) in Medicare patient (Z00.00: Encounter for general adult medical examination without abnormal findings) Patient in office today for her Initial Medicare Wellness Visit. A customized and personalized print out of all the current AHRQ USPSTF???s recommendations for preventative services and all current CDC recommended immunizations, relevant risk recommendations and the following patient brochures weregiven. Reviewed What can I expect during my Medicare preventative care visit CDC-Falls Prevention and home safety screening reviewed. Patient denies any falls in last 12 months, voices no worry about falling, exhibits no problems with sitting and standing. Pt voices understanding with keeping walk way area free of clutter to prevent tripping and/or falling. [place] Advance Directives reviewed, See #5. Patient denies any problems with ADL???s and Instrumental ADL???s. Cognitive screening completed with memory and clock face drawing. Immunization Record reviewed with the patient. Patient reports she has had Shingles vaccine. She will bring dates in to update chart. 2 COVID vaccines have been administered, and 1 booster. Immunization record is up to date. Allergies and medications reviewed and up to date. Patient denies concerns with taking medication as prescribed, reviewed OTC medications with patient with medication list up to date. Blood tests were reviewed: Tests ordered by pcp today. Colonoscopy screenings no longer done due to age. Reviewed concerns with bladder control over past 6 months with no concerns. Reviewed pain symptoms with patient: denies pain today. Reviewed all outside providers that patient follows. Last visit summary notes available in chart and/or have been requested. Follow up scheduled: 06/22/2025 AWV has been scheduled: 12/21/2025 Medicare provides yearly screening for alcohol and depression concerns. This is completed during our Medicare wellness visit for those who do not have a current diagnosis of depression or concerns with alcohol use. I spent a total of (12) minutes on this date of service which included preparing to see the patient, face to face patient care, completing clinical documentation, obtaining and/or reviewing separately obtained history, counseling and educating the patient with handouts. Explanations were provided with reviewing questionnaires. AUDIT risk assessment screening completed, risk score(0) with patient denying concerns with use. Completed PHQ-2 risk assessment for depression with risk score(0), negative findings. Patient has been reminded to notify the provider if there would be a change or concerns with symptoms with fear, unable to sleep, worrying too much or feeling down and/or sad with lost of interest with daily activities. Will continue to monitor with screening yearly during Medicare wellness visits. 2. Benign hypertension with chronic kidney disease, stage II (I12.9: Hypertensive chronic kidney disease with stage 1 through stage 4 chronic kidney disease, or unspecified chronic kidney disease) See #3. Reviewed health kidney nutritional handout with importance of preventing strain on the kidneys. Monitor sodium intake daily, educational handout reviewed and provided to assist the patient with a better understanding which types of food, including frozen foods, canned food and fast foods. Work towards a dietary intake with low potassium foods and limit protein intake. Reminded importance to avoidNSAID use and monitor for swelling in the body. Continue to monitor BP with importance of keeping under control with repeated blood work to be ordered as directed with PCP. Follows up with Nephrologyas directed 3. Hypertension (I10: Essential (primary) hypertension) Patient is not taking medication at this time. Does monitor BP pressure at home occassionally. HTN stoplight reviewed with BP goal to be <140/90. Reviewed different factors that can alter blood pressure readings. Education handout provided with s/s to monitor for and report to provider. Patient is encouraged to increase portions of fruit, vegetables, fiber and increase exercise as much as tolerable. Reviewed importance with monitoring foods high in salt content and encouraged to limit intake, if unsure encouraged to discuss with their PCP. Encouraged to eat more chicken, fish and lean white meats and limits red meats in diet. Discussed importance with keeping BP under good control to reduce CVA risk factors. Will continue to f/u with PCP during office visits and as needed. 4. Hypothyroid (E03.9: Hypothyroidism, unspecified) Patient taking ( Levothyroxine ) daily as directed, taking in am on a (more content not included)...[facility] HospitalComment on above:Result Comment: Electronically Signed By: Gwen Conklin.br\Date and Time Signed: 01/12/25 14:55 EDT\.br\Electronically Co-Signed By: Dina Monroy\.br\Date and Time Co-Signed: 01/12/25 14:40 EDTFamily Medicine Office/Clinic NoteFamily Medicine Office/Clinic Note Chief Complaint yearly wellness HPI Staff Patient is presenting for yearly check-up (also has AWV today) Concerns: about a month ago started having a twitch in right side of face, upper lip left hip is hurting when walking had dexa scan, started on bone medication, wants to know if this is helping Refills: synthroid, bone med Health Maintenance: Colonoscopy: Dexa: Mammo: Pap: Last Labs: per message from 12/26/24, patient will have labs done today History of Present Illness pt presents today for 6 month follow up. Review of Systems PHQ Score Initial Depression Screen Score: 0 SCORE Physical Exam Vitals & Measurements HR: 74(Peripheral) BP: 126/76 SpO2: 97% HT: 157 cm HT: 62 in WT: 74.5 kg WT: 164.244 lb BMI: 30.22 General: alert, no acute distress ENMT: oral mucosa moist, no pharyngeal erythema or exudate Cardiovascular: regular rate and rhythm, normal peripheral perfusion Respiratory: Lungs CTA, respirations non labored Extremities: no deformity, no trauma Neurological: oriented x 4, LOC appropriate for age, CN II-XII intact, motor strength equal & normal bilaterally, speech normal Assessment/Plan 1. Hypertension (I10: Essential (primary) hypertension) BP at goal today. doing well. denies needs. has AMW visit after this appointment. RTC 6 months Ordered: CBC w/ Auto Diff Comprehensive Metabolic Panel E&M of Est. Patient Low 20-29 Min 47963 Lipid Panel Thyroid Stimulating Hormone Thyroid Stimulating Hormone Vitamin D 25 Hydroxy Vitamin D 25 Hydroxy XR Hip 2-3 Views Left 2. Hypothyroid (E03.9: Hypothyroidism, unspecified) TSH drawn in office todya Ordered: CBC w/ Auto Diff Comprehensive Metabolic Panel E&M of Est. Patient Low 20-29 Min 35266 Lipid Panel Thyroid Stimulating Hormone Thyroid Stimulating Hormone Vitamin D 25 Hydroxy Vitamin D 25 Hydroxy XR Hip 2-3 Views Left 3. Nonalcoholic fatty liver disease without nonalcoholic steatohepatitis (SYKES) (K76.0: Fatty (change of) liver, not elsewhere classified) cmp drawn today Ordered: CBC w/ Auto Diff Comprehensive Metabolic Panel E&M of Est. Patient Low 20-29 Min 48544 Lipid Panel Thyroid Stimulating Hormone Thyroid Stimulating Hormone Vitamin D 25 Hydroxy Vitamin D 25 Hydroxy 4. Osteoarthritis (M19.90: Unspecified osteoarthritis, unspecified site) due for repeat dexa next year Ordered: E&M of Est. Patient Low 20-29 Min 97109 Thyroid Stimulating Hormone Vitamin D 25 Hydroxy XR Hip 2-3 Views Left 5. Left hip pain (M25.552: Pain in left hip) pt c/o left hip pain. it starts after she has been walking for about 20 minutes. x ray order sent to [facility] Ordered: E&M of Est. Patient Low 20-29 Min 36565 XR Hip 2-3 Views Left 6. Vitamin D deficiency (E55.9: Vitamin D deficiency, unspecified) vitamin D checked in office today Ordered: CBC w/ Auto Diff Comprehensive Metabolic Panel E&M of Est. Patient Low 20-29 Min 51299 Lipid Panel Thyroid Stimulating Hormone Thyroid Stimulating Hormone Vitamin D 25 Hydroxy Vitamin D 25 Hydroxy 7. Stage 2 chronic kidney disease (N18.2: Chronic kidney disease, stage 2 (mild)) CMP drawn in office today Ordered: CBC w/ Auto Diff Comprehensive Metabolic Panel E&M of Est. Patient Low 20-29 Min 47373 Lipid Panel Thyroid Stimulating Hormone Thyroid Stimulating Hormone Vitamin D 25 Hydroxy Vitamin D 25 Hydroxy 8. BMI 30.0-30.9,adult (Z68.30: Body mass index [BMI] 30.0-30.9, adult) BMI education gvien Ordered: E&M of Est. Patient Low 20-29 Min 00581 Thyroid Stimulating Hormone Vitamin D 25 Hydroxy XR Hip 2-3 Views Left 9. Non-smoker (Z78.9: Other specified health status) continue not smoking Ordered: 1126F Pain severity quantified; no pain present Current tobacco non-user 1036F E&M of Est. Patient Low 20-29 Min 93718 Medication list documented in medical record 1159F Most recent diastolic blood pressure <80 mm Hg 3078F Systolic BP <130 mm Hg (Most Recent) 3074F Thyroid Stimulating Hormone Vitamin D 25 Hydroxy XR Hip 2-3 Views Left Follow-up No qualifying data available Problem List/Past Medical History Ongoing Benign hypertension with chronic kidney disease, stage II Chronic fatigue syndrome Class 2 obesity due to excess calories in adult Hypertension Hypothyroid Left hip pain Nonalcoholic fatty liver disease without nonalcoholic steatohepatitis (SYKES) Osteoarthritis Right shoulder pain Rotator cuff syndrome of right shoulder Stage 2 chronic kidney disease Supraspinatus tendon rupture Supraventricular tachycardia Vitamin D deficiency Historical No qualifying data Procedure/Surgical History Cholecystectomy, TL - Tubal ligation, Tonsillectomy. Medications acetaminophen-hydrocodone 325 mg-5 mg oral tablet, 1 tab(s), Oral, Bedtime, PRN aspirin 81 mg Chew Tab, 81 mg= 1 tab(s), Oral, Daily calcium (as carbonate) 600 mg oral (more content not included)...[facility] HospitalComment on above:Result Comment: Electronically Signed By: Gwen Conklin\.br\Date and Time Signed: 01/12/25 11:22 EDTHEMATOLOGYOrdered By: SYSTEM SYSTEM on 39-30-7029Mnkopxpff/100 WBC (Bld)0.6 %Normal0.0 - 2.0 % Remisol HemeBasophils/Leukocytes Auto (Bld) [Pure # fraction]0.0 E9/LNormal0.0 - 0.2 E9/LRemisol HemeEosinophils (Bld) [#/Vol]0.1 E9/LNormal0.0 - 0.5 E9/LRemisol HemeEosinophils/100 WBC (Bld)1.7 %Normal0.0 - 8.0 %Remisol HemeErythrocyte distribution width (RBC) [Ratio]13.7 %[place]61.9 - 14.2 %Remisol HemeHematocrit (Bld) [Volume fraction]40.6 %Rmypgs36.0 - 46.0 %Remisol HemeHemoglobin (Bld) [Mass/Vol]13.7 g/pPYragyv64.0 - 16.0 gm/dLRemisol HemeLymphocytes (Bld) [#/Vol] 1.6 E9/LNormal1.0 - 4.0 E9/LRemisol HemeLymphocytes/100 WBC (Bld)26.5 %Normal 14.0 - 50.0 %Remisol HemeMCH (RBC) [Entitic mass]30.1 ghNobcuh05.0 - 34.0 pg Remisol HemeMCHC (RBC) [Mass/Vol]33.7 g/yYKoorrq47.4 - 36.0 gm/dLRemisol HemeMCV (RBC) [Entitic vol]89.3 dBLsqlsz12.0 - 100.0 fLRemisol HemeMonocytes (Bld) [#/Vol]0.7 E9/LNormal0.2 - 1.0 E9/LRemisol HemeMonocytes/100 WBC (Bld)11.0 % Normal4.0 - 14.0 %Remisol HemeNeutrophils (Bld) [#/Vol]3.6 E9/LNormal2.0 - 7.5 E9/LRemisol HemeNeutrophils/100 WBC (Bld)60.2 %Zymita48.0 - 75.0 %Remisol Heme Platelet mean volume (Bld) [Entitic vol]10.8 fLNormal6.4 - 10.8 fLRemisol Heme Platelets (Bld) [#/Vol]137.0 E9/WHca682.0 - 500.0 E9/LRemisol HemeRBC (Bld) [#/Vol]4.6 E12/LNormal4.3 - 5.9 E12/LRemisol HemeWBC corrected for nucl RBC Auto (Bld) [#/Vol]6.0 E9/LNormal4.0 - 11.0 E9/LRemisol HemeLipid Panelon 2025 Cholesterol [Mass/Vol]202 mg/dHGdcu961-512VhcnygSelect Medical Ohiohealth Rehabilitation Hospital - DublinComment on above:Performed By: #### [id number] #### [facility]resh [facility] [address] [place], [place] [address]Siosgwwsqwi in HDL [Mass/Vol]41 mg/dLInvalid Interpretation CodeSelect Medical Ohiohealth Rehabilitation Hospital - DublinComment on above:Result Comment: '>= 60 LOW RISK' '<= 40 HIGH RISK'Performed By: #### [id number] #### [facility] [address] [place], [place] [address]Amqctvwcaer in LDL [Mass/Vol]134 mg/dLHigh<=129[facility] - DublinComment on above:Performed By: #### [id number] #### [facility] [address] [place], [place] [address]Odfvsztqomk in VLDL [Mass/Vol]44 mg/dLHigh7-40[facility] - DublinComment on above:Performed By: #### [id number] #### [facility] [address] [place], [place] [address]Utheylckawip [Mass/Vol]222 mg/dLHigh<=149[facility] - DublinComment on above:Performed By: #### [id number] #### [facility] [address] [place], [place] [address]NEWmp 61-33-4747VXR Qn0.58 m[IU]/LNormal0.34-5.60[facility] - DublinComment on above:Performed By: #### [id number] #### [facility] [address] [place], [place] [address]Ervrjll D 25 Hydroxyon 21-29-9562Cmbreyf D 25 Uuiuowx77.5 ng/mL Jgsczk70.0-100.0[facility] - DublinComment on above:Performed By: #### [id number] #### [facility] [address], [place] [address]wZBEkn 14-96-9665vQVA77 mL/min/1.73 m2Low>=59[facility] - DublinComment on above:Performed By: #### [id number] #### [facility] [address] [place], [place] [address]Nbboirtgaf Visit Summaryon 75-44-9062Ltusxlfcue Visit Summary Ambulatory Visit Summary ANA ROSA TUCKER :1950 Visit Date:03/10/2024 Ambulatory Visit Instructions Your Diagnosis Supraspinatus tendon rupture BMI 30.0-30.9,adult Non-smoker Class 2 obesity due to excess calories in adult Your Care Team Attending Physician - Gwen Conklin Primary Care Physician - Brian CITIZENSHIP TEACHER, Gwen L This Is Your Medications List aspirin (aspirin [...] shower. ? Ask y (more content not included)...[facility] Medicine Office/Clinic Noteon 64-53-9502Nrqyvf Medicine Office/Clinic NoteFapappas rehabilitation hospital for children Medicine Office/Clinic Note Chief Complaint Shoulder Pain [...] muscle(s) and tendon(s) of the rotator cuff ofunspecified shoulder, initial encounter) reviewed MRI results. will send referral to [facility] access orthopedics. pt is c/o 10/10 [...] 50,000 intl units (1.25 mg) oral capsule, 09153 International_Unit= 1 cap(s), Oral, qWeek, 3 refills Allergies penicillin (Swelling) Social History Tobacco Never (less than 100 in lifetime) Tobacco Use:. Never Smokeless Tobacco Use:. Cigarettes, Householdtobacco concerns: No. Yes, 03/10/2024 Family History Primary malignant neoplasm of lung: Father. Prostate cancer: Father. Immunizations Vaccine Date Status Comments SARS-CoV-2 (COVID-19) mRNAMUL.ORD![id number] 05/29/2022 Recorded 2024-02-17: TPV70 SARS-CoV-2 (COVID-19) mRNA BNT-162b2 vax 06/11/2021 Recorded 2024-02-17: TPV70 SARS-CoV-2 (COVID-19) Ad26 vaccine 09/22/2020 Recorded hepatitis A-hepatitis B vaccine 04/18/2008 Recorded hepatitis A-hepatitis B vaccine 11/18/2007 Recorded typhoid vaccine, inactivated 10/14/2007 Recorded diphtheria/pertussis, acel/tetanus adult 10/14/2007 Recorded poliovirus vaccine, inactivated 10/14/2007 Recorded hepatitis A-hepatitis B vaccine 10/14/2007 RecordedMary Rutan HospitalComment on above:Result Comment: Electronically Signed By: Gwen Conklin\Date and Time Signed: 03/10/24 10:59 EDTFamily Medicine Office/Clinic Noteon 49-90-4451Omjwlh Medicine Office/Clinic NoteFapappas rehabilitation hospital for children Medicine Office/Clinic Note HPI Staff Ana Rosa is a 74 year old female presenting with Onset: started January 13 Location: right shoulder Duration: Characteristics:_lifts over head it is a stabbing pain, or lifting Aggravated by: using it for anything Relieved by: ice, heat Voltarine, does work for a little bit Timing:_a little bit Associated Symptoms:_ none Doing MRI tomorrow @ [facility] Did 4 sessions of PT and made pain worse. Last one was done was February 07 Xray done January 24 @ [place] showed calcium and arthritis She can not [...] been going to physical therapy. but was toldby PT that they wanted her to have MRI beforet they would continue. pt declines any medication at this time for the pain. pt is not sleeping due to the pain. she really doesn't want surgery. informedher we will keep an eye out for the results from [facility]. she has follow up scheduled on [...] 50,000 intl units (1.25 mg) oral capsule, 07704 International_Unit= 1 cap(s), Oral, qWeek, 3 refills Allergies penicillin (Swelling) Social History Tobacco Never (less than 100 in lifetime) Tobacco Use:. Never Smokeless Tobacco Use:. Cigarettes, 02/18/2024 Family History Primary malignant neoplasm of lung: Father. Prostate cancer: Father. Immunizations Vaccine Date Status Comments SARS-CoV-2 (COVID-19) mRNAMUL.ORD![id number] 05/29/2022 Recorded 2024-02-17: TPV70 SARS-CoV-2 (COVID-19) mRNA BNT-162b2 vax 06/11/2021 Recorded 2024-02-17: TPV70 SARS-CoV-2 (COVID-19) Ad26 vaccine 09/22/2020 Recorded hepatitis A-hepatitis B vaccine 04/18/2008 Recorded hepatitis A-hepatitis B vaccine 11/18/2007 Recorded typhoid vaccine, inactivated 10/14/2007 Recorded diphtheria/pertussis, acel/tetanus adult 10/14/2007 Recorded poliovirus vaccine, inactivated 10/14/2007 Recorded hepatitis A-hepatitis B vaccine 10/14/2007 [facility] CenterComment [facility]:Result Comment: Electronically Signed By: Gwen Conklin\.br\Date and Time Signed: 02/18/24 10:27 EDTAmbulatory Visit Summaryon 66-81-4177Yrmerxpuul Visit SummaryAmbulatory Visit Summary ANA ROSA TUCKER MATEO:1950 Visit Date:01/28/2024 Ambulatory Visit Instructions Your Diagnosis [...] 10:00 AM EDT With: Gwen Conklin [facility] HospitalAmbulatory Visit SummaryAmbulatory Visit Summary ROGERIOGONZÁLEZ MAYERNicola GALINDO:1950 Visit Date:01/28/2024 Ambulatory Visit Instructions Your Diagnosis [...] you for choosing us for your care. [facility] Medicine Office/Clinic Noteon 73-90-7468Irykxp Medicine Office/Clinic NoteLahey Hospital & [facility] Medicine Office/Clinic Note HPI Staff Ana Rosa is a 74 year old female presenting to establish care Establish Care: History: Any previous diagnosis: Skin cancer, Hypertention History of seeing any specialist: Senior Bioinformatics Scientist ( Dr. Ferreira) When was your last [...] kg, 01/28/24 9:24:00 E (more content not included)...[facility] Rut[facility] HospitalComment on above:Result Comment: Electronically Signed By: Gwen Conklin\.br\Date and Time Signed: 01/28/24 10:50 EDTXR SHOULDER 2+ VIEWS RIGHTon 06-41-8918EX SHOULDER 2+ VIEWS RIGHTFINDINGS: A bulbous subacromial process is present. Mild osteophyte formation involves the AC joint. No fracture or dislocation is seen. Punctate calcification humeral head consistent with calcific rotator cuff tendinitis. Upper chest is clear. IMPRESSION: 1. Mild arthritis, no AC separation or fracture. 2. Acromial morphology possible impingement. TRANSCRIBED BY: ELECTRONICALLY SIGNED BY: Chico Dias MDNormalNot AvailableXR DEXA AXIAL SKELETONon 89-15-9418[place]jcVal[place], [place] [address] XRay Report Signed Patient: ANA ROSA TUCKER MR#: [id number] : 1950 Acct:[id number] Age/Sex: 73 / F ADM Date: 01/05/24 Loc: RAD Attending Dr: SHAKIRA ROONA Ordering Physician: SHAKIRA ORONA Date of Service: 01/05/24 Procedure(s): XR DEXA axial skeleton Accession Number(s): [id number] cc: SHAKIRA ORONA [place] [id number] Patient Name: ANA ROSA TUCKER MRN: [id number] date: 1950 Sex: F Assigned Patient Location: RAD Current Patient Location: RAD Accession/Order Number: [id number] Exam Date: 01/05/2024 10:20 Report Date: 01/05/2024 12:21 At the request of: SHAKIRA ORONA Procedure: XR DEXA axial skeleton EXAMINATION: [...] Signed By: 01/05/24 1223 DD/ 1221 TD/TT: Diversified Crops Farmer:TBHRadiology, Radiologist, - 01/05/2024 [place] [address] XRay Report Signed Patient: ANA ROSA TUCKER MR#: [id number] : 1950 Acct:[id number] Age/Sex: 73 / F ADM Date: 01/05/24 Loc: RAMÓN Attending Dr: SHAKIRA ORONA Ordering Physician: SHAKIRA ORONA Date of Service: 01/05/24 Procedure(s): XR DEXA axial skeleton Accession Number(s): [id number] cc: SHAKIRA ORONA The [address] [address] Patient Name: ANA ROSA TUCKER MRN: [id number] date: 1950 Sex: F Assigned Patient Location: RAD Current Patient Location: RAD Accession/Order Number: [id number] Exam Date: 01/05/2024 10:20 Report Date: 01/05/2024 12:21 At the request of: SHAKIRA ORONA Procedure: XR DEXA axial skeleton EXAMINATION: [...] Signed By: 01/05/24 1223 DD/ 1221 TD/TT: D[employer] Farmer: [facility] HealthcareRadiology Study observation (narrative)[facility] HealthcareXR DEXA AXIAL SKELETONOrdered By: Radiologist Radiology on 07-29-8696QZXJ [employer] Work Phone: cOVID/FLU RT-PCRon 95-03-9953ZDFK-CoV-2 (COVID-19) RNA MAURICE+probe Ql (Unsp spec)NegativeSt. Michaels Medical Center [employer] Other COVID/FLU RT-PCRNegativeNoTrinity Health [employer] Other Comprehensive Metabolic Panelon 02-71-9891Oyzydmw [Mass/Vol]4.3 g/dLNormal3.6-5.1[facility] SpecialistComment on above: Performed By: #### LIPD, CMP #### [facility] [address], [place] [id number]/Globulin [Mass ratio]2.0 {ratio}Normal1.0-2.5[facility] SpecialistComment on above:Performed By: #### LIPD, CMP #### [facility] [address], [place] [id number] [Catalytic activity/Vol]95 U/DQrfzjb88-307[place] [facility] SpecialistComment on above:Performed By: #### LIPD, CMP #### [facility] [address] [place], [place] [id number] [Catalytic activity/Vol]21 U/LNormal6-33[facility] [place] [facility] SpecialistComment on above:Result Comment: 06/19/2021 Female reference range changed.Performed By: #### LIPD, CMP #### [facility] [address], [place] [id number] gap [Moles/Vol]12 mmol/MXxakwq31-49Rwabenbw [place] Medical SpecialistComment on above:Result Comment: Effective 07/25/2019 reference range changed.Performed By: #### LIPKadeem, CMP #### [facility] [address], [place] [id number] [Catalytic activity/Vol]21 U/LNormal9-34Nortdignity health mercy gil[facility] medical centern [place] Medical SpecialistComment on above:Performed By: #### LIPD, CMP #### [facility] [address], [place] [id number] [Mass/Vol]0.67 mg/dLNormal0.30-1.20Nortdignity health mercy gil[facility] medical centern [place] [facility] SpecialistComment on above:Performed By: #### LIPD, CMP #### [facility] [address] [place], [place] [id number]/CREA18 RatioNormal6-22NortHocking [facility] Library Cataloging Technician Comment on above:Performed By: #### LIPD, CMP #### [facility] [address] [place], [place] [id number] [Mass/Vol]9.6 mg/dLNormal8.6-10.2[facility] [place] Medical SpecialistComment on above:Performed By: #### LIPD, CMP #### [facility] [address] [place], [place] [id number] [Moles/Vol]107 mmol/CLgptdt39-975Nmflayzz [place] Medical SpecialistComment on above:Performed By: #### LIPD, CMP #### [facility] [address], [place] [id number] [Moles/Vol]26 mmol/BFdjzpz40-80Bpwuhkee [place] [facility] SpecialistComment on above:Performed By: #### VOLODYMYR, CMP #### [facility] [address], [place] [id number] [Mass/Vol]0.9 mg/dLNormal0.6-1.4Nortdignity health mercy gil[facility] medical centern [facility] SpecialistComment on above:Performed By: #### VOLODYMYR, CMP #### [facility] [address], [place] [id number] mL/min/1.58n0Cdkcbe>60NortMem[facility] SpecialistComment on above:Performed By: #### LIPKadeem, CMP #### [facility] [address] [place], [place] [id number] mL/min/1.98h3Ztpjgg>60NortMemorial [facility] SpecialistComment on above:Performed By: #### VOLODYMYR, CMP #### [facility] [address] [place], [place] [id number] (S) [Mass/Vol]2.1 g/dLNormal1.9-3.7Nortdignity health mercy [facility]il[facility] medical centern [facility] SpecialistComment on above:Performed By: #### VOLODYMYR, CMP #### [facility] [address], [place] [id number] [Mass/Vol]112 mg/sELebz09-57Rjvevaif [place] [facility] SpecialistComment on above:Result Comment: For FASTING Glucose --- ADA reference ranges: Normal 65-99 mg/dl Prediabetes 100-125 Diabetes >/= 126Performed By: #### LIPKadeem, CMP #### [facility] [address], [place] [id number] [Moles/Vol]4.6 mmol/LNormal3.5-5.5NortMemorial [facility] System [facility] SpecialistComment on above:Performed By: #### LIPKadeem, CMP #### [facility] [address], [place] [id number] [Mass/Vol]6.4 g/dLNormal6.1-8.1[place] Medical SpecialistComment on above:Performed By: #### LIPD, CMP #### [facility] [address], [place] [id number] [Moles/Vol]141 mmol/UPqokdf291-523Xjlextpu [place] Medical SpecialistComment on above:Performed By: #### LIPD, CMP #### [facility] [address], [place] [address]Trkw nitrogen [Mass/Vol]16 mg/dLNormal7-25NoCleveland Clinic Foundation SpecialistComment on above:Performed By: #### LIPD, CMP #### [facility] [address], [place] [id number] Panelon 61-27-6712Olyhslnufox [Mass/Vol]236 mg/dLHigh 125-200NoCleveland Clinic Foundation SpecialistComment on above:Result Comment: Low risk < 200mg/dL Borderline risk 201-239 mg/dl High risk > or equal to 240Performed By: #### LIPD, CMP #### [facility] [address], [place] [address]Iqrespmjsdb in HDL [Mass/Vol]40 mg/dLLow>40NoTrinity Health SystemComuniversity of mich[facility] health on above:Result Comment: High Cardiovascular Risk HDL <40 mg/dL Low Cardiovascular Risk HDL > or equal to 60 mg/dlPerformed By: #### LIPD, CMP #### [facility] [address], [place] [address]Tttqbrxiwnf in LDL [Mass/Vol]157 mg/dLNoRiverview Health Institute SpecialistComment on above:Result Comment: LDL ATP III CLASSIFICATION LDL less than 100 mg/dl Optimal LDL 100-129 mg/dl Near or above optimal LDL 130-159 Borderline high LDL 160-189 High LDL greater than 189 mg/dl Very HighPerformed By: #### LIPD, CMP #### [facility] [address], [place] [address]Vbepfuucalh in VLDL [Mass/Vol]39 mg/dLNoRiverview Health Institute SpecialistComment on above:Performed By: #### LIPD, CMP #### [facility] [address], [place] [address]Dahbcfivgpz.total/Cholesterol in HDL [Mass ratio]6 {ratio} NormalNorthern [facility] SpecialistComment on above:Performed By: #### VOLODYMYR, CMP #### [facility] [address], [place] [address]Yemwhebsuosa [Mass/Vol]194 mg/mAFnlc52-890Imarksbi [facility] SpecialistComment on above:Result Comment: TRIG ATPIII CLASSIFICATIONS TRIG less than 150 mg/dl Normal TRIG 150-199 mg/dl Borderline High TRIG 200-500 mg/dl High TRIG greather than 500 mg/dl Very HighPerformed By: #### VOLODYMYR, CMP #### [facility] [address], [place] [address]YAI AUTO DIFFon 21-81-3054MGJZ #0.0 103/ulNormal0.0-0.1The St. Rita'S HospitalComment on above:Performed By: #### CBC #### [facility] [address] [place] [address] [address] Wendy KingsleyBasophils/100 WBC (Bld)0.6 %Normal0.2-2.0[facility] Comment on above:Performed By: #### CBC #### [facility] [address] [place] [address] Dr. Wendy Snowden #0.1 103/ulNormal0.0-0.7The St. Rita'S HospitalComment on above: Performed By: #### CBC #### [facility] [address] [place] [address] Dr. Wendy Truongosinophils/100 WBC (Bld)1.6 %Normal0.9-7.0The [facility] Comment on above:Performed By: #### CBC #### [facility] [address] [address] [address] Wendy Truongrythrocyte distribution width (RBC) [Ratio]13.0 %Znqami17.0-15.0 [facility] HospitalComment on above:Performed By: #### CBC #### [facility] [address] [address] [address] Wendy KingsleyHematocrit (Bld) [Volume fraction]43.0 %Tvwvrb29.0-48.0The [facility]'S HospitalComuniversity of michigan health on above:Performed By: #### CBC #### [facility] [address] [place] [address] Dr. Wendy KingsleyHemoglobin (Bld) [Mass/Vol]13.9 g/bWRtbytc12.0-16.0The [facility] HospitalComuniversity of [facility] health on above:Performed By: #### CBC #### [facility] [address] [place] [address] Dr. Wendy KingsleyIG #0.02 10e3/ulNormal0.00-0.03[facility] on above:Performed By: #### CBC #### [facility] [address] [place] [address] Dr. Wendy Ugarte %0.4 %Normal0.0-0.5The St. Rita'S HospitalComment on above: Performed By: #### CBC #### [facility] [address] [place] [address] Dr. Wendy Gallego #1.8 103/ulNormal1.2-3.8The [facility] HospitalComuniversity of [facility] health on above:Performed By: #### CBC #### [facility] [address] [place] [address] Dr. Wendy Heltonmphocytes/100 WBC (Bld)34.2 %Ycfqbk55.5-60.0The [facility] HospitalComuniversity of [facility] health on above:Performed By: #### CBC #### [facility] [address] [place] [address] Dr. Wendy KingsleyMANUAL DIFF REQNONormalThe St. Rita'S HospitalComuniversity of mich[facility] health on above: Performed By: #### CBC #### [facility] [address] [place] [address] Dr. Wendy Hernandez (RBC) [Entitic mass]29.8 waBekkjk20.7-34.0The St[facility]'S HospitalComment on above:Performed By: #### CBC #### [facility] [address] [address] [address] Wendy GrahamHC (RBC) [Mass/Vol]32.3 g/bLXnujuo37.9-35.2The St[facility]'S HospitalComment on above:Performed By: #### CBC #### [facility] [address] [place] [address] Dr. Wendy GrahamV (RBC) [Entitic vol]92.1 qWTaaknb56.0-99.0The [facility]'S HospitalComment on above:Performed By: #### CBC #### [facility] [address] [place] [address] Dr. Wendy Fuentes #0.6 103/ulNormal0.3-0.8The St[facility]'S HospitalComment on above:Performed By: #### CBC #### [facility] [address] [place] [address] Dr. Wendy Almaguerocytes/100 WBC (Bld)11.7 %Normal1.7-12.0The [facility] Comment on above:Performed By: #### CBC #### [facility] [address] [place] [address] Dr. Wendy Little #2.6 103/ulNormal1.4-6.5The St[facility]'S HospitalComment on above:Performed By: #### CBC #### [facility] [address] [place] [address] Dr. Wendy Mendezutrophils/100 WBC (Bld)51.5 %Wuesgk53.0-75.0The St[facility]'S HospitalComment on above:Performed By: #### CBC #### [facility] [address] [place] [address] Dr. Wendy Noyolalet mean volume (Bld) [Entitic vol]12.4 fLNormal9.5-13.5The St. [facility]'S HospitalComment on above:Performed By: #### CBC #### [facility] [address] [place] [address] Dr. Wendy KingsleyPLT144 103/ulCritically xnv984-861Miw St. Rita'S HospitalComment on above:Performed By: #### CBC #### [facility] [address] [address] [address] Wendy KingsleyRBC4.67 106/ulNormal4.20-5.40The [facility]tering [facility] Hospitalment on above:Performed By: #### CBC #### [facility] [address] [address] [address] Wendy KingsleyWBC5.1 103/ulNormal4.0-11.0The St[facility]'S HospitalComment on above: Performed By: #### CBC #### [facility] [address] [address] [address] Wendy KingsleyGLYCOHEMOGLOBIN A1Con 99-02-5284NDN RECOMMENDATIONADA THERAPEUTIC TARGET 6.0 - 7.0 ACTION SUGGESTED > 7.0NoTrinity Health SystemComuniversity of michigan health on above:Performed By: #### A1C #### [facility] [address] [place] [address] Dr. Wendy KingsleyGlucose [Mass/Vol]108 mg/dLNoTrinity Health SystemComment on above:Performed By: #### A1C #### [facility] [address] [place] [address] Dr. Wendy iKngsleyHbA1c (Bld) [Mass fraction]5.4 %Normal<=6.0[facility] Comment on above:Performed By: #### A1C #### [facility] [address] [place] [address] Dr. Wendy KingsleyLIPID PROFILEon 02-09-1146JCQS-HDL RATIO NORMSEE BELOWAvita Health SystemComment on above:Result Comment: 3.3 - 4.4 LOW RISK 4.4 - 7.1 AVERAGE RISK 7.1 - 11.0 MODERATE RISK >11.0 HIGH RISKPerformed By: #### LIPID, BMP #### [facility] [address] [place] [address] Dr. Wendy KingsleyCholesterol [Mass/Vol]214 mg/dLCritically high<=200The St. [facility]'S HospitalComment on above:Performed By: #### LIPID, BMP #### [facility] [address] [place] [address] Dr. Wendy Farleyesterol in HDL [Mass/Vol]38 mg/dLAvita Health System Comment on above:Performed By: #### LIPID, BMP #### [facility] [address] [address] [address] Wendy KingsleyCholesterol in LDL [Mass/Vol]138.8 mg/dLAvita Health SystemComment on above:Performed By: #### LIPID, BMP #### [facility] [address] [address] [address] Wendy Farleyesterdoreen.total/Cholesterol in HDL [Mass ratio]5.6 {ratio} NormalThe St. Rita'S HospitalComment on above:Performed By: #### LIPID, BMP #### [facility] [address] [place] [address] Dr. Wendy Rodriguez NORMAL> or = 60 mg/dl - LOW CARDIOVASCULAR RISK <40 mg/dl - HIGH CARDIOVASCULAR RISKNoTrinity Health SystemComment on above:Performed By: #### LIPID, BMP #### [facility] [address] [place] [address] Dr. Wendy Ortiz CALC NORMALSEE BELOWAvita Health SystemComment on above:Result Comment: <100 mg/dl OPTIMAL 100 - 129 mg/dl NEAR OR ABOVE OPTIMAL 130 - 159 mg/dl BORDERLINE HIGH 160 - 189 mg/dl HIGH >190 mg/dl VERY HIGH Performed By: #### LIPID, BMP #### [facility] [address] [place] [address] Dr. Wendy KingsleyTriglyceride [Mass/Vol]186 mg/dLCritically high<=150[facility] HospitalComment on above:Performed By: #### LIPID, BMP #### [facility] [address] [place] [address] Dr. Wendy KingsleyVLDL CALC37.2 mg/dLNoTrinity Health SystemComment on above: Performed By: #### LIPID, BMP #### [facility] [address] [place] [address] Dr. Wendy KingsleyPROF CHEM 8 (BAS METB)on 70-72-9974Obzuk gap [Moles/Vol]11.2 mmol/LNormalThe St. [facility]'S HospitalComment on above:Performed By: #### LIPID, BMP #### [facility] [address] [place] [address] Dr. Wendy KingsleyCalcium [Mass/Vol]9.0 mg/dLNormal8.4-10.2[facility] Comment on above:Performed By: #### LIPID, BMP #### [facility] [address] [address] [address] Wendy KingsleyChloride [Moles/Vol]106 mmol/LNnppmq45-756ShhMagruder Memorial Hospital Comment on above:Performed By: #### LIPID, BMP #### [facility] [address] [place] [address] Dr. Wendy KingsleyCO2 [Moles/Vol]26.2 mmol/XRxuzeo20.0-30.0[facility] Comment on above:Performed By: #### LIPID, BMP #### [facility] [address] [place] [address] Dr. Wendy KingsleyCreatinine [Mass/Vol]0.95 mg/dLNormal0.52-1.04The St[facility]'S HospitalComment on above:Performed By: #### LIPID, BMP #### [facility] [address] [place] [address] Dr. Wendy TruongGFR-AF LAO>60Normal>=60The St. [facility]'S HospitalComment on above:Performed By: #### LIPID, BMP #### [facility] [address] [place] [address] Dr. Wendy TruongGFR-NON AF UYMMNHNB21 mL/min/1.26r5Ujtymlxmkw low>=60[facility] HospitalComment on above:Performed By: #### LIPID, BMP #### [facility] [address] [place] [address] Dr. Wendy KingsleyGlucose [Mass/Vol]96 mg/qSNlzuab11-199VxdMagruder Memorial Hospital Comment on above:Performed By: #### LIPID, BMP #### [facility] [address] [place] [address] Dr. Wendy KingsleyPotassium [Moles/Vol]4.4 mmol/LNormal3.4-5.0The [facility] Comment on above:Performed By: #### LIPID, BMP #### [facility] [address] [address] [address] Wendy KingsleySodium [Moles/Vol]139 mmol/PNqvfer797-330Vhk [facility] Comment on above:Performed By: #### LIPID, BMP #### [facility] [address] [address] [address] Wendy KingsleyUrea nitrogen [Mass/Vol]17.0 mg/dLNormal7.0-17.0The [facility]'S HospitalComment on above:Performed By: #### LIPID, BMP #### [facility] [address] [address] [address] Wendy Aquino nitrogen/Creatinine [Mass ratio]17.9 mg/mgNormalThe St. Rita'S HospitalComment on above:Performed By: #### LIPID, BMP #### [facility] [address] [address] [address] Wendy Naranjo 91-59-5132TOZSDcapjy TextNormalCKettering Memorial Hospital Vital Signs Date TimeVital SignValuePerforming ZapuwwgzcWnvczihc14-80-4896 10:19-0400Body emmsgy800 cmDavid Pocos DO Work Phone: yubackRipley County Memorial HospitalCpsrjzckhf86-14-7982 10:19-0400Body mass index (BMI) [Ratio]28.7 kg/v6Tgywr Pocos DO Work Phone: NORipley [facility] Memorial HospitalQbovdhhwms87-72-0929 10:19-0400Body hisrhk53.48 kgDavid Pocos DO Work Phone: NORiple[facility] HospitalKbbvrelepk14-67-7276 10:15-0400Body gsdjse875.02 Yandel Morris Other [place] [employer] Other 10-27-2023 10:15-0400Body mass index (BMI) [Ratio] 28.55 kg/l2BdbcumSilvia Morris Other [facility] [employer] Other 10-27-2023 10:15-0400Body gznibkuvvjd13.4 [degF]Silvia Morris Other [place] [employer] Other 10-27-2023 10:15-0400Body .12 kgSilvia Morris Other [place] [employer] Other 10-27-2023 10:15-0400Diastolic blood njfqjull66 mm[Hg] Silvia Castellonmond Other [facility] [employer] Other 10-27-2023 10:15-0400Respiratory rate18 /minSilvia Morris Other [place] [employer] Other 10-27-2023 10:15-6015IaM8% (BldA) [Mass fraction]95 % Silvia Morris Other [facility] [employer] Other 10-27-2023 10:15-0400Systolic blood magfidgd767 mm[Hg] Silvia Morris Other [facility] [employer] Other Encounters Encounter DateEncounter TypeCare ProviderFacilityStart: 77-52-9485ovvtfezlraDrpu L SchwabFacility:FT [place]Start: 77-01-0013cgzhunwszcLypv Allyssa Brian Facility:FT rt: 59-51-2704jiinughjbdPbvdiw J AiyanamleyFacility: MilanStart: 44-32-7723kwliwkybbxLicymm L. BobbsFacility:[facility] BellevueStart: 50-35-3829ufhuphrkzdFgmkgg L. BobbsFacility:[facility] HospitalueStart: 05-16-2025 Letitia RonFacility:FT FM [place]vueStart: 01-19-2025 End: 51-27-4533Nvomzdl encounter procedureREFERRAL [facility] Work Phone: Start: 01-19-2025 End: 88-64-9230ceinbficttXxdp Lynn Brian [employer] INS[employer]TER[employer] Work Phone: [facility] Work Phone: Start: 2025 End: 28-14-2363Tvo Drop offJodi L Brian [facility] Start: 2025 End: 02-69-0795vcvrsttingYduy L SchwabFacility:FT FM [place]vueStart: 10-25-2024 End: 02-37-9214Xohfgo outpatient visit 15 minutesJoelie Hollingsworth DO Work Phone: [facility] NB OPHTComment on above:Eyelid lesion (Primary Dx); Hemorrhage, eyelidStart: 10-25-2024 End: 94-82-6744uczvvpfdujZIOOWCDP Kadeem PEACOCKERNot AvailableStart: 10-25-2024 End: 67-74-4599Yxvapt flowsheetJonathan D Zahler DO Work Phone: [facility] NB OPHTStart: 10-25-2024 End: 65-72-6636Exklla flowsheetJonathan Kadeem Zahler DO Work Phone: [facility] NB OPHTStart: 04-18-2024 End: 79-01-3229MuxuchComeldup D Zahler DO Work Phone: [facility] NB OPHTComment on above:Age-related nuclear cataract of both eyes (Primary Dx)Start: 04-01-2024 End: 66-08-3916Wwunmr flowsheetDavid A Pocos DO Work Phone: [facility] SWS ORTHOAOStart: 04-01-2024 End: 98-12-3104Eearlh flowsheetDavid A Pocos DO Work Phone: [facility] SWS ORTHOAOStart: 04-01-2024 End: 69-84-3360Gwrniam encounter procedureDavid A Pocos DO Work Phone: [facility] SWS ORTHOAOComment on above: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); Adhesive capsulitis of right shoulderStart: 04-01-2024 End: 24-06-0771jtqloaqgjjAZGOS A POCOSNot AvailableStart: 03-10-2024 End: 19-04-5239jolzpauamsNmge L SchwabFacility:FT FM [place]vueStart: 02-25-2024 End: 67-72-8716vagiplaxaiUSOCEANM D ZAHLERNot AvailableStart: 02-18-2024 End: 91-62-0560tqjdakjtztJurd L SchwabFacility:FT FM [place]vueStart: 02-08-2024 End: 62-32-9837wubksbjwdwVFOICFOJL SCHNEIDERNot AvailableStart: 02-04-2024 End: 30-78-3901rcdccgrxwqFLOKPMMW BRINKNot AvailableStart: 02-02-2024 End: 64-54-4280ipecfoezygVYWOGC J HEMEYERNot AvailableStart: 01-28-2024 End: 35-94-7548yitfnycvgiJFMPFYX LAWRENCENot AvailableStart: 01-28-2024 End: 93-43-0165bcgoyfkieiXmue L SchwabFacility:FT FM [place]vueStart: 01-25-2024 End: 86-20-1887jqdnaxclvxEACFQD T BLACKSTONNot AvailableStart: 01-22-2024 ambulatoryJodi SchwabFacility:FT FM BellevueStart: 01-14-2024 End: 54-95-1486vslbjliegtEKBQFP J HEMEYERNot AvailableStart: 01-14-2024 End: 08-35-4702jgeirngjldFHJVDX J HEMEYERNot AvailableStart: 01-05-2024 End: 04-46-2885Waoweljzn Result Skinny Orona MD Work Phone: NOZX External Department UnsolicitedStart: 01-05-2024 End: 77-81-4186Lypcefent Result EncounterEdmaico Orona MD Work Phone: [facility] External Department UnsolicitedStart: 12-31-2023 End: 88-81-9386ziyyeyxgbmOGWRYY J HEMEYERNot AvailableStart: 12-17-2023 End: 83-73-0906mmgmkgxknoYCPJTW J HEMEYERNot AvailableStart: 05-15-2023 End: 01-69-8489vqswpsepofAgavfq Dymond Other [place] [employer] Other Start: 36-94-3668Zrusdk outpatient new 20 minutes Silvia MorrisFPG Urgent Care ClydeStart: 11-29-2021 End: 00-56-4739Jdqhdqe encounter procedureMD Shakira Orona Work Phone: [facility] Start: 04-15-2021 End: 46-66-9806lnkywsylqhAR SHAKIRA ORONAFacility:E8Kthbw: 11-01-2018 End: 75-22-0314Agwscuw encounter procedureDEFAULT PHYSICIANFacility:[facility] Procedures DateProcedureProcedure DetailPerforming ClinicianStart: 87-92-6554Kcorzrala mammography of bilateral breastsJodi Brian CORK INSULATION SETTER-C Work Phone: Start: 57-57-4051WQ DEXA AXIAL SKELETONShakira Orona MD Work Phone: Start: 47-39-8820Spvgeketb mammography of bilateral breastsMD Shakira Orona Work Phone: Start: 05-23-2019H/O: tubal ligationHistory of tubal ligationDavid Pocos DO Work Phone: CholecystectomyJodi Brian Ligation of fallopian tubeJodi Brian TonsillectomyJodi Brian Plan of Treatment DateCare ActivityDetailAuthorStart: 94-27-8893Tzzebdvqq vaccinationInfluenza Vaccine (Season Ended)[facility] HealthcareStart: 06-13-2025Medicare Annual Wellness (AWV)Medicare Annual Wellness (AWV)[facility] HealthcareStart: 10-25-2024 End: 67-54-5901Knauyhh encounter vpajyxopw06/08/2025 2:45 PM EDT Office Visit [facility] [address] [place] [address] Renee Hollingsworth, DO [address] [place] [address] ArrivedNOMS MERISSA OPHTComment on above:ArrivedStart: 05-26-2024 End: 90-10-6236Xbysnqf encounter /07/2024 8:00 AM EST Procedure Visit [facility] Renee Hollingsworth, DO [address] [place] [address] [facility] EXT DEPStart: 04-21-2024 End: 60-29-8803Zomopqs encounter ydlsavqao22/03/2024 8:00 AM EDT Procedure Visit [facility] Renee Hollingsworth, DO [address] [place] [address] [facility] EXT DEPStart: 04-01-2024 End: 97-63-9839Jtqrswn encounter xqrfcyfdz10/13/2024 10:30 AM EDT Office Visit [facility] [address] [place] [address] Izaiah Levine, DO [address] [place] [address] ArrivedNOMS MANPREET ORTHOAOComment on above:ArrivedStart: 77-36-3379Npzmnzequ vaccinationInfluenza Vaccine (#1)[facility] Immunizations Immunization DateImmunizationNotesCare EmfgmocnXlcdzkjk44-95-4902Ejfxmh Bivalent Booster 12 Years And OlderDavid Pocos DO Work Phone: [facility] HospitalQzqzsvduhv28-91-1266VDGN-BpR-6 (COVID-19) mRNAMUL.ORD!f93069Uhjw Brian [phone]-LnpprLouis Stokes [facility] Comment on above:Result Comment: 2024-02-17: EVB2587-26-8573HGHB-QgH-0 (COVID- 19) mRNA BNT-162b2 vaxJodi Brian [phone]-TjcknLouis Stokes [facility] Center Comment on above:Result Comment: 2024-02-17: HKH3383-17-2631Lyeialj SARS-CoV-2 VaccinationDavid Pocos DO Work Phone: [facility] HospitalXbzoledlko47-52-8993ADEN-PxP-8 (COVID-19) Ad26 vaccine, recombinantJodi Brian [phone]-VezkiLouis Stokes [facility] Center 41-81-9122sbdyfrigc A and hepatitis B vaccineDavid Pocos DO Work Phone: [facility] HospitalGmbvomhark28-71-3491ioxkljgtp A and hepatitis B vaccineDavid Pocos DO Work Phone: [facility] HospitalKyvdprcwcr01-26-4903ojlnilnnq A and hepatitis B vaccineDavid Pocos DO Work Phone: [facility] HospitalTuspqbanrl13-19-0136nrxlshwfej vaccine, inactivatedDavid Pocos DO Work Phone: [facility] HospitalAetbteqvpg32-42-3841oogivhtrml vaccine, unspecified formulationJodi Brian [phone]-DugwjLouis Stokes [facility] Center 31-36-2409trjrqbt toxoid, reduced diphtheria toxoid, and acellular pertussis vaccine, adsorbedDavid Pocos DO Work Phone: [facility] HospitalEqfbqaneen35-18-1194tgbyhnv vaccine, unspecified formulationJodi Brian [phone]-MjnjzMercy [facility] Ghazal 90-91-9213rwnpsuu capsular polysaccharide vaccineDavid Pocos DO Work Phone: [facility] Payers DatePayer CategoryPayerPolicy [id number] [id number] 2023Medicare (Managed Care)[employer] Member Subscriber Plan / Payer (Effective 2022- Present) Name: Ana Rosa Tucker Relation to Subscriber: Self Name: Ana Rosa Tucker Payer ID: [id number] (NAIC) Type: Not on file Address: [place] [id number] [id number]-[id number] 2.16840.1.709044.3.579.2.647 [id number] 2.840.1.824225.3.57[id number] 2.16.840.1.489318.3.57[id number] 2.16.840.1.426261.3.57[id number] 2.16.840.1.634981.3.57[id number] 2.16.840.1.118353.3.57[id number] 2.16.840.1.382389.3.57[id number] 2.16.840.1.936883.3.57[id number] 2.16.840.1.075426.3.579.[id number] 2.16.840.1.580386.3.57[id number] 2.16840.1.396108.3.57[id number] 2.840.1.259943.3.57[id number] 2.16840.1.140806.3.57[id number] 2.840.1.737393.3.57[id number] 2.16840.1.881659.3.579.[id number] 2.840.1.348401.3.57[id number] 2.16840.1.730767.3.57[id number] 2.16840.1.886636.3.57[id number] 2.16840.1.808219.3.57[id number] 2.16840.1.531493.3.57[id number] 2.16840.1.003836.3.579.[id number] 2.0.1.498852.3.57[id number] 2.0.1.807531.3.57[id number] 2.0.1.301420.3.57[id number] 2.0.1.795449.3.57[id number] 2.0.1.623894.3.5[id number] 2..1.737860.19 Private Health InsuranceAetGreat River Medical Center [id number] [id number] County General [facility] Hospital/[id number] Social History DateTypeDetailFacilityTobacco smoking status NHISUnknown if ever smokedPremier Health [facility] Work Phone: Start: 74-35-2061Rti [facility]: 01-08-2023 End: 17-91-5228Yhf Assigned At [facility] [employer] Other Start: 01-06-2023 End: 65-72-5720Mullnzn smoking status NHISNever smoked tobaccoNOMS Healthcare Comment on above:denies use.Start: 54-99-0115Ebjbwgb use and exposureSmokeless tobacco non-userNODC HealthcareStart: 12-31-2023 End: 06-40-3963Vzybsjvgo beverage intakeEx-drinker (finding)[facility] Start: 01-08-2023 End: 98-58-2210Qiyfsqq of Social functionNODC HealthcareHow often to you have a drink containing alcohol?NeverNOMS HealthcareStart: 45-11-8850Nlf many standard drinks containing alcohol do you have on a typical day?Patient does not drink [facility] HealthcareComment on above:denies use.Start: 44-67-3824Saf assigned at birthNot on [facility] HospitalSexual OrientationMount St. [facility] Hospital SexFemale (finding)[facility] NEGATED: Highlighted rowStart: NINFHistory of tobacco usePassive smokerSaint [facility]'s [facility] Clinical Notes 05-15-2023 to 2025 Note Date & ZjasMdkxMiznetak94-72-9299 NotePatient Education Emergency Medicine Heart Attack A heart attack occurs when blood and oxygen supply to the heart is cut off. A heart attack can cause damage to the heart that cannot be fixed. A heart attack is also called a myocardial infarction, or NV. If you think you are having a heart attack, do not wait to see if the symptoms will go away. Get medical help right away. What are the causes? This condition may be caused by: ??? A fatty substance (plaque) in the blood vessels (arteries). This can block the flow of blood tothe heart. ??? A blood clot in the blood vessels that go to the heart. The blood clot blocks blood flow. ??? An abnormal heartbeat. ??? Some diseases, such as problems in red blood cells (anemia)orproblems in breathing (respiratoryfailure). ??? Tightening (spasm) of a blood vessel that cuts off blood to the heart. ??? A tear in a blood vessel of the heart. Other causes may include: ??? Using drugs such as cocaine or methamphetamine. ??? Low blood pressure. What increases the risk? Aging. The risk gets higher as you get older. ??? Having a personal or family history of chest pain, heart attack, stroke, or narrowing of the arteries in the legs, arms, head, or stomach (peripheral vascular disease). ??? Having taken chemotherapy or immune-suppressing medicines. ??? Being male. ??? Being overweight or obese. ??? Having any of these conditions: ? High blood pressure. ? High cholesterol. ? Diabetes. ??? Making lifestyle choices such as: ? Drinking too much alcohol. ? Not getting regular exercise. ? Smoking. What are the signs or symptoms? Chest pain. It may feel like: ? Crushing or squeezing. ? Tightness, pressure, fullness, or heaviness. ??? Pain in the arm, neck, jaw, back, or upper body. ??? Heartburn. ??? Upset stomach (indigestion). ??? Shortness of breath. ??? Feeling like you may vomit (nauseous). ??? Cold sweats. ??? Sudden light-headedness, dizziness, or passing out. ??? Feeling tired. How is this treated? A heart attack must be treated as soon as possible. Treatment may include: ??? Medicines to: ? Break up or dissolve blood clots. ? Thin your blood and help prevent blood clots. ? Treat blood pressure. ? Improve blood flow to the heart. ? Reduce pain. ? Reduce cholesterol. ??? Procedures to widen a blocked artery and keep it open. ??? Open heart surgery. ??? Making your heart strong again (cardiac rehabilitation) through exercise, education, and counseling. Follow these instructions at home: Medicines ??? Take bxvj-fcg-rlvnuiv and prescription medicines only as told by your doctor. ??? Do not take these medicines unless your doctor says it is okay: ? NSAIDs, such as ibuprofen, naproxen, or celecoxib. ? Any vitamins or supplements. ? Hormone replacement therapy that has estrogen with or without progestin. ??? If you are taking blood thinners: ? Talk with your doctor before taking any medicines that have aspirin or NSAIDs, such as ibuprofen. ? Take medicines exactly as told. Take them at the same time each day. ? Avoid doing things that could hurt or bruise you. Take action to prevent falls. ? Wear an alert bracelet or carry a card that shows you are taking blood thinners. Lifestyle ??? Do not smoke or use any products that contain nicotine or tobacco. If you need help quitting, ask your doctor. ??? Avoid secondhand smoke. ??? Exercise regularly. Ask your doctor about a cardiac rehab program. ??? Eat heart-healthy foods. Your doctor will tell you what foods to eat. ??? Stay at a healthy weight. ??? Learn ways to lower your stress level. ??? Do not use illegal drugs. Alcohol use ??? Do not drink alcohol if: ? Your doctor tells you not to drink. ? You are , may be , or are planning to become . ??? If you drink alcohol: ? Limit how much you have to: ? 0?1 drink a day for women. ? 0?2 drinks a day for men. ? Know how much alcohol is in your drink. In the [place] one drink equals one 12 oz bottle of beer (355 mL), one 5 oz glass of wine (148 mL), or one 1? oz glass of hard liquor (44 mL). General instructions ??? Work with your doctor to treat other problems you may have, such as diabetes or high blood pressure. ??? Get screened for depression. Get treatment if needed. ??? Keep your vaccines up to date. Get the flu shot (influenza vaccine) every year. ??? Keep all follow-up visits. Contact a doctor if: ??? You feel very sad. ??? You have trouble doing your daily activities. ??? You get light-headed or dizzy. Get help right away if: ??? You have sudden, unexplained discomfort in your chest, arms, back, neck, jaw, or upper body. ??? You have shortness of breath. ??? You have sudden sweating or clammy skin. ??? You feel like you may vomit or you vomit. ??? You fe (more content not included)...[facility]04-08-2025 History of Present illness Narrative* Renee Hollingsworth, DO - 10/25/2024 2:45 PM EDT Images from the original note were not [...] she knows to call. documented in [facility] encounterSaint [id number] History of Present illness Narrative* Faiza Obrien - 04/01/2024 10:30 AM EDT Images from the original note were not included. Ana Rosa Tucker is a 74 y.o. female presents with chief complaint of right shoulder pain. HPI: Ana Rosa is a 74-year-old white female who presents complaining of right shoulder pain and difficulty.This has been escalating since December of 2023. She did have physical therapy at [facility]. She had five sessions, was unable [...] Oral, Daily ergocalciferol (Vitamin D2) 1.25 MG (75312 UT) capsule HYDROcodone-acetaminophen ([place]) 5-325 MG tablet Oral levothyroxine (SYNTHROID, LEVOXYL) 88 mcg, Oral, Daily before breakfast Lysine 500 MG capsule Every 24 hours meloxicam (MOBIC) 15 mg, Oral Multiple Vitamin (Multi Vitamin) tablet Every 24 hours ALLERGIES: Allergies Allergen Reactions Famciclovir Penicillin G Swelling SURGICAL HISTORY: Past Surgical History: Procedure Laterality Date CHOLECYSTECTOMY 2007 COLONOSCOPY 2013 EGD 2013 gastritis SPINE SURGERY 2000 l4/l5 Dr Sidhu TONSILLECTOMY 1964 TUBAL LIGATION 1977 FAMILY HISTORY: Family History Problem Relation Name [...] Examination of the neck reveals range of motionwithout difficulty. Biceps, triceps, and brachial radialis reflexes [...] labral pathology. No tendinous pathology. No evidence offracture or other osseous abnormality. She does have [...] today. Follow up letter sent to Gwen Shelton. documented in this [facility]08-22-2024 NotePatient Education Orthopedics Deltoid Disruption A deltoid disruption [...] risk of getting burned. Medicines ? Take gywr-lks-wiacgib and prescription medicines only as told by your health care provider. ? Ask your health care provider if the medicine prescribed to you: ? Requires you to avoid driving or using machinery. ? Can cause constipation. You may need to take actions to prevent or treat constipation, such as: ? Drink enough fluid to keep your urine pale yellow. ? Take tgcr-bwd-apoxwrr or prescription medicines. ? Eat foods that [...] activities are safe for you. ? Do neoey-mn-fdvwak exercises only as told by your health [...] help right away if: (more content not included)...[facility]10-27-2023 Evaluation note* Encounter Date Diagnosis Assessment Notes Treatment Notes Treatment Clinical Notes Apr, Contact with and (duckworth spected) exposure to covid-19 (ICD-10 - Z20.822) Apr,ronchitis (ICD-10 - J40)Acute bronchitis home care material was printed Drink plenty fluids, get plenty of rest. Fill and take the azithromycin as prescribed until gone ifno improvement in your symptoms in the next day or so. Take the Medrol Dosepak as prescribed starting tomorrow. Take Delsym or Robitussin as needed for cough. Follow-up with your family physician if no improvement in 2 to 3 days. Patient reports she is leaving for [place] tomorrow and is concerned that she will be sick while she was gone. A Z-Steven was prescribed in case she needs it. Patient verbalizes understanding of this. [employer] Other Evaluation + Plan note Future Appointments Appointment Date:06/22/2025 10:00:00 AM Scheduled Provider:Gwen Conklin [facility] Type:FM Open Appointment Date:12/21/2025 09:20:00 AM Scheduled Provider:Gwen Conklin [facility] App[facility] Type:FM Open Appointment Date:12/21/2025 09:30:00 AM Scheduled Provider: [facility] App[facility] Type: Medicare Wellness Subsequent 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 capsulitis of right shoulder documented in this encounter [facility] Healthcare[facility]* Diagnosis Age-related nuclear cataract of both eyes- Primary documented in this encounter [facility] HealthcareEvaluation note* Diagnosis Eyelid lesion- Primary Unspecified disorder of eyelid Hemorrhage, eyelid Hemorrhage of eyelid documented in this encounter [facility] HealthcareHistory general Narrative - Reported* Type Description Date Medical History Gastritis and gastro duodenitis, unspecified, without mention of hemorrhage Medical HistoryAbdominal painSurgical HistoryCHOLECYSTECTOMYSurgical History TUBAL LIGATIONHospitalization HistoryNo Hospitalization history information [employer] Other Hospital course Narrative No data available for this section [facility] Hospital Discharge instructions No data available for this section [facility] Progress note No data available for this section [facility] Reason for referral (narrative)No reason for referral information availablePrem[facility] Work Phone: Summary Purpose Family History No Family History Records FoundNo Family History Records FoundNo Family History Records FoundNo Family History Records FoundNo Family History Records Found No data available for this section No Family History Records FoundNo Family History Records FoundNo Family History Records FoundNo Family History Records FoundNo Family History Records FoundNo Family History Records FoundNo Family History Records FoundNo Family History Records Found Advance Directives No Advanced Directives Records Found Advance Directive Response Recorded Date/ Time Advance Directives No March 02, 2018 10:34am Chief Complaint and Reason for Visit Chief Complaint Screening Chief Complaint Admit Date Screening January 19, 2025 2:14p m Additional Source Comments INFORMATION SOURCE (unrecogn ized section and content) DATE CREATED AUTHOR 11/02/2018 [facility] DATE CREATED AUTHOR AUTHOR'S ORGANIZ ATION 01/27/2019 [facility] DATE CREATED AUTHOR AUTHOR'S ORGANIZ ATION 04/15/2021 [facility] DATE CREATED AUTHOR AUTHOR'S ORGANIZ ATION 11/22/2021 [facility] [employer] DATE CREATED AUTHOR AUTHOR'S ORGANIZ ATION 10/27/2024 [facility] DATE CREATED AUTHOR AUTHOR'S ORGANIZ ATION 01/13/2025 [facility] DATE CREATED AUTHOR AUTHOR'S ORGANIZ ATION 01/14/2025 [facility] DATE CREATED AUTHOR AUTHOR'S ORGANIZ ATION 01/22/2025 [facility] DATE CREATED AUTHOR AUTHOR'S ORGANIZ ATION 05/23/2025 [facility] Care Teams (unrecognized sec tion and content) Team Status: Inactive Member Role Status Dates Shakira Orona MD Primary Care Provider, Referring Provider Active Referral SelfAttending ProviderActive Team Status: Active Member Role Status Dates Shakira Orona MD Primary Care Provider Active Team Status: Active Member Role Status Dates Gwen Shelton NP-C Primary Care Provider Active Team Status: Inactive Member Role Status Dates Referral Self Attending Provider Active Start: Joan [email or web address] End: January 19, 2025Jojosué Shelton NP-CPrimary Care ProviderActiveStart: January 19, 2025 End: January 19, 2025Jojosué Shelton NP-CReferring ProviderActiveStart: January 19, 2025 End: January 19, 2025Team MemberRelationshipSpecialtyStart DateEnd Date Shakira Orona MD PCP - GeneralFamily Medicine12/24/ Goals (unrecognized section and content) Goals may be documented in a n alternate sectionNo Information No data available for this sectionGoals may be documented in an alternate section REASON FOR VISIT (unrecogniz ed section and content) ReasonCommentsPainReasonOnset DateCommentsMed [id number] On skin FOR RECORDS PERTAINING TO PATIENTS [...] BE BASED ON THE PRIMARY CLINICAL RECORDS. [facility]. provides no warranty or guarantee of the accuracy or completeness of information in this document.
[2025-05-25 10:26] LABS: Hematocrit 39.9 % (36.0-48.0); Hemoglobin 13.4 g/dL (12.0-16.0); Immature Granulocytes Abs Auto 0.02 10^3/uL (0.00-0.03); Immature Granulocytes Pct Auto 0.4 % (0.0-0.5); Lymphocytes Absolute Auto 1.7 10^3/uL (1.2-3.8); Mean Corpuscular HGB Conc 33.6 g/dL (29.9-35.2); Mean Corpuscular Hemoglobin 30.7 pg (26.7-34.0); Mean Corpuscular Volume 91.5 fL (81.0-99.0); Platelet Count 140 10^3/uL (150-450); Red Blood Count 4.36 10^6/uL (4.20-5.40); White Blood Count 5.0 10^3/uL (4.0-11.0)
[2025-05-25 11:00] LABS: Anion Gap 11.3; Blood Urea Nitrogen 16.0 mg/dL (7.0-18.0); Calcium 9.6 mg/dL (8.5-10.1); Carbon Dioxide 30.3 mmol/L (21.0-32.0); Chloride 108 mmol/L (98-107); Estimated GFR (African America >60 (>=60 mL/min/1.73m^2); Estimated GFR (Non-African Ame 51 (>=60 mL/min/1.73m^2); Glucose 112 mg/dL (74-106); Potassium 4.6 mmol/L (3.5-5.1); Sodium 145 mmol/L (136-145); Thyroid Stimulating Hormone 0.714 uIU/mL (0.358-3.740)
== END 2025-05-25 09:41 | disposition home or self-care (01) ==
LOC: LAB 09:51
PROVIDERS: PCP Nurse Practitioner
DX: E03.9 Hypothyroidism, unspecified (principal); Z86.79 Personal history of other diseases of the circulatory system; D69.6 Thrombocytopenia, unspecified
CPT/HCPCS: 36415; 80048; 84439; 84443; 85025